=== PATIENT | female | born 1955 | race Caucasian/White ===

== ENCOUNTER 2017-05-01 13:09 | Inpatient (IN) | payer OTHER ==
[~2017-05-01] VITALS: Ht 160 cm; Wt 153.3 kg
--- NOTE | ~2017-05-01 | EKG ---
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: KKODJOVI : 1955 Requested By: Noel Guzman Order Number: [id number] MD: Randal Ding Measurements Intervals [place] Rate: 97 P: 65 [place]: 184 QRS: 72 QRSD: 112 T: 63 QT: 402 QTc: 511 Interpretive Statements Sinus rhythm Borderline intraventricular conduction delay Nonspecific repol abnormality, diffuse leads Prolonged QT interval Compared to ECG 05/06/2015 09:51:06 ST and T wave abnormality now present Prolonged QT interval now present Sinus tachycardia no longer present Electronically Signed On 05-01-2017 17:19:34 BROOM BUNDLER by Randal Ding [email or web address] <ELECTRONICALLY SIGNED> By: Randal Ding MD, [facility] 05/01/17 1719 1311 1311 Randal Ding MD, [facility] /EPI
--- NOTE | ~2017-05-01 | 2DMMODE ---
[facility] [place] [address] 2 D/M-MODE ECHOCARDIOGRAM Name: ELAINE RAMIREZ Room #: 363-P ADM IN M.R.#: [id number] Admission: 05/01/17 Attend Phys: Khang Quevedo Discharge: Date of : 59 Date of Service: 05/01/17 1538 Report #: [id number] THIS REPORT FOR: //name// APPROVED REPORT Study performed: 05/01/2017 14:57:46 EXAM: Comprehensive 2D, Doppler, and color-flow Echocardiogram Patient Location: ER Room #: 1 Status: routine BSA: 2.30 HR: 80 bpm BP: 116/64 mmHg Rhythm: NSR Other Information Study Quality: Poor/limited measurements. Technically limited study due to no mobility and morbid obesity. Indications Syncope. Hx: HTN, DM, COPD. 2D Dimensions LVEF(%): 61.58 (>50%) IVSd: 11.95 (7-11mm) LVDd: 50.58 mm PWd: 13.47 (7-11mm) Ascending Ao: 35.60 (22-36mm) LVDs: 33.77 (25-40mm) Aortic Root: 34.47 mm Castano's LVEF: 61.58 % Aortic Valve AoV Peak Urbano.: 1.21 m/s AO Peak Gr.: 5.90 mmHg LVOT Max P.79 mmHg LVOT Max V: 1.30 m/s Mitral Valve E/A Ratio: 1.3 MV Decel. Time: 231.33 ms MV E Max Urbano.: 0.70 m/s MV A Urbano.: 0.54 m/s MV PHT: 67.09 ms IVRT: 83.04 ms [facility] [address] [place] [address] 2 D/M-MODE ECHOCARDIOGRAM Name: ELAINE RAMIREZ Room #: 363-[facility] IN ..#: [id number] Admission: 05/01/17 Attend Phys: Khang Quevedo Discharge: Date of : 59 Date of Service: 05/01/17 1538 Report #: [id number] Tricuspid Valve TR Peak Urbano.: 2.28 m/s RAP Estimate: 5.00 mmHg TR Peak Gr.: 20.72 mmHg PA Pressure: 26.00 mmHg Left Ventricle The left ventricle is normal size. Regional wall motion is not well visualized but grossly normal. Mild concentric left ventricular hypertrophy. The overall left ventricular systolic function appears normal. LVEF is within normal limits. This study is not technically sufficient to allow evaluation of the LV diastolic function. Right Ventricle Right ventricle is not well visualized but appears normal in size. Atria The left atrium size is normal. The right atrium size is normal. Aortic Valve Aortic valve is poorly visualized. No aortic regurgitation is noted. There is no aortic valvular stenosis. Mitral Valve The mitral valve is normal in structure. There is no mitral valve regurgitation noted. No evidence of mitral valve stenosis. Tricuspid Valve Tricuspid valve is not well visualized. Regurgitation jet not well visualized. Estimated PAP is 25-30mmHg. Pulmonic Valve Pulmonic valve is poorly visualized. Great Vessels The aortic root is normal in size. The ascending aorta is normal in size. IVC is normal in size and collapses >50% with inspiration. Pericardium There is no pericardial effusion. <Conclusion> Very limited study [facility] [address] [place] [address] 2 D/M-MODE ECHOCARDIOGRAM Name: ELAINE RAMIREZ Room #: 363-P ADM IN M.R.#: [id number] Admission: 05/01/17 Attend Phys: Khang Quevedo Discharge: Date of : 59 Date of Service: 05/01/17 1538 Report #: [id number] The overall left ventricular systolic function appears normal. Regional wall motion is not well visualized but grossly normal. Aortic valve is poorly visualized. No aortic valvular stenosis or insufficiency. The mitral valve is normal in structure. No mitral valve regurgitation noted. Regurgitation jet not well visualized. Estimated pulmonary artery pressure of 25-30mmHg. There is no pericardial effusion. <ELECTRONICALLY SIGNED> By: Randal Ding MD, FAC 05/01/17 1538 153 [id number] Randal Ding MD, [facility] /INF
--- NOTE | ~2017-05-01 | HC ---
[facility] [place] [address] CONSULTATION Name: ELAINE RAMIREZ Room #: 363-P [facility] IN M.R.#: [id number] Admission: 05/01/17 Attend Phys: Sam Taveras MD Discharge: 05/05/17 Date of : 59 Report #: [id number] THIS REPORT FOR: //name// CC: Genaro Taveras DATE OF SERVICE: 05/01/2017 ATTENDING PHYSICIAN: Sam Taveras M.D. REASON FOR CONSULTATION: Electrolyte abnormalities. HISTORY OF PRESENT ILLNESS: A 61-year-old patient 8 years living in extended care facility with morbid obesity, hypoventilation and diastolic heart failure, has been on multiple diuretic treatments including metolazone, furosemide and acetazolamide and unfortunately has developed marked electrolyte abnormalities and volume depletion on that regimen. She presents with sodium of 122, potassium of 2.1 after a presyncopal episode. PAST MEDICAL HISTORY: As above. She has a history of diastolic congestive heart failure, right-sided heart failure with cor pulmonale, chronic swelling, morbid obesity and obesity hypoventilation previous deep vein thrombosis, COPD and diabetes. MEDICATIONS AT THE FACILITY: Listed including albuterol inhaler, furosemide 80 mg daily, MiraLax, acetazolamide 250 mg daily, atorvastatin 20 mg daily, lisinopril 10 mg daily, bupropion 100 mg daily, levothyroxine 0.05 mg daily, Neurontin 200 mg daily, metolazone 2.5 mg daily, oxycodone, potassium, multiple vitamins, insulin. FAMILY HISTORY: Brother, but she does not know much about him. She does not know much about her parents. SOCIAL HISTORY: Smoker says she recently quit, but apparently has not been long enough to really call it quitting. No alcohol. REVIEW OF SYSTEMS: GENERAL: She has been feeling okay. EYES: Her vision is okay. ENT: Hearing okay, swallowing okay. No mouth ulcers. ENDOCRINE: Positive for the diabetes and hypothyroidism. RESPIRATORY: Easily short winded, chronically short winded. CARDIAC: No chest pain, angina, history of heart attack, palpitations or arrhythmias. GASTROINTESTINAL: No nausea, vomiting, diarrhea or bloody stools. GENITOURINARY: No dysuria, hematuria, or renal stones. No urinary tract [facility] [address] [place] [address] CONSULTATION Name: ELAINE RAMIREZ Room #: 363-P [facility] IN M.R.#: [id number] Admission: 05/01/17 Attend Phys: Sam Taveras MD Discharge: 05/05/17 Date of : 59 Report #: [id number]. NEUROLOGIC: No seizure, syncope or stroke. Generalized weakness and she does not walk. LABORATORY DATA: Hemoglobin 13.2, platelets 266. Sodium 122, potassium 2.1, chloride 79, bicarbonate 35, creatinine 1.3, BUN 36. ASSESSMENT AND PLAN: 1. Electrolyte abnormalities. She has electrolyte abnormalities clearly due to her multiple diuretics, decreased free water clearance, increased potassium excretion appropriately. She is being replenished with potassium chloride and sodium chloride and this seems to be appropriate orders. 2. Acute kidney injury. Creatinine up from 0.9 to 1.3, probably should not be on lisinopril as she does not have any difficulty with left ventricular function and she has the right-sided failure. 3. Obesity hypoventilation. 4. Chronic obstructive pulmonary disease. 5. History of deep venous thrombosis. DICTATION ENDS HERE <ELECTRONICALLY SIGNED> By: Steve Carlos MD 05/08/17 1120 1805 0042 Steve Carlos MD /nt
--- NOTE | ~2017-05-01 | H ---
[facility] [place] [address] HISTORY AND PHYSICAL Name: ELAINE RAMIREZ Room #: 363-P ADM IN M.R.#: [id number] Admission: 05/01/17 Attend Phys: Sam Tvaeras MD Discharge: Date of : 59 Report #: [id number] THIS REPORT FOR: //name// CC: Genaro Taveras DATE OF SERVICE: 05/01/2017 CHIEF COMPLAINT: Syncope. HISTORY OF PRESENT ILLNESS: The patient is a 61-year-old female with history of COPD on home oxygen at 3 liters per minute, history of hypertension, diabetes, chronic pain, DVT/PE, hypothyroidism who was brought into the Emergency Room from [facility] secondary to a syncopal episode. The patient had a sudden collapse at [facility]. Staff were unable to feel the pulse and started her on CPR. On arrival to the Emergency Room, the patient was awake and alert. Her initial blood pressure was 116/64. Workup did show severe hypokalemia with potassium of 2.1. Sodium was low at 122. It appears the patient has been on multiple diuretics Lasix, acetazolamide and metolazone at the assisted. The patient denies any dizziness, no chest pain, no shortness of breath. She denies any nausea, vomiting, abdominal pain. She has had some poor p.o. intake over the last few days. PAST MEDICAL HISTORY: Significant for oxygen dependent COPD. Apparently, she was steroid dependent in the past, but steroid has not been listed in the list of medication. She has history of morbid obesity, peripheral vascular disease, chronic leg edema, type 2 diabetes, osteoarthritis, hyperlipidemia, hypothyroidism, DVT and PE in the past. Chronic kidney disease, stage 3. SOCIAL HISTORY: Smokes cigarettes. No alcohol abuse or illicit drug abuse. She is a [facility] patient. ALLERGIES: No known drug allergy. FAMILY HISTORY: Unable to obtain. REVIEW OF SYSTEMS: CONSTITUTIONAL: The patient denies any recent weight loss or weight gain. No fever or chills. EYES: No change in vision. THROAT: Denies any sore throat. CARDIOVASCULAR: Denies any chest pain, dizziness, palpitations. RESPIRATORY: No cough or expectoration. GASTROINTESTINAL: No nausea, vomiting, or diarrhea. GENITOURINARY: No dysuria or hematuria. NEUROLOGIC: Denies any focal numbness or weakness of the extremity. [facility] [address] [place] [address] HISTORY AND PHYSICAL Name: ELAINE RAMIREZ Room #: 363-P [facility] IN .R.#: [id number] Admission: 05/01/17 Attend Phys: Sam Taveras MD Discharge: Date of : 59 Report #: [id number] The 12-point review of system is negative other than the positive and negative dictated in the history of present illness and the review of system. PHYSICAL EXAMINATION: VITAL SIGNS: Blood pressure is 116/64, heart rate is 89 per minute, afebrile. She is saturating 95% on 4 liters of oxygen. GENERAL: She is awake and alert. Able to follow simple commands. She is oriented to person and place. EYES: Pupils equal, reactive to light. Throat appears normal. NECK: Supple, no JVD, no bruit, no lymphadenopathy. CARDIOVASCULAR SYSTEM: S1, S2, negative S3, no murmur. CHEST: Bilateral air entry present. Clear on auscultation. ABDOMEN: Soft, bowel sounds present, no mass, no organomegaly, no tenderness. PERIPHERY: No pedal edema. No calf tenderness. Dorsalis pedis 1+. NEUROLOGICAL: The patient is able to move all 4 extremities. LABORATORY DATA: Reviewed. White count is 15.7, hemoglobin 13.2, white count was 17.6 in 05/2015. Platelet is 266. Her chemistry showed a BUN of 36, creatinine of 1.3, potassium was low at 2.1, sodium is 122, chloride is 79, bicarbonate is 35. Blood glucose is elevated at 226. CT of the brain showed no acute intracranial abnormality. Chest x-ray showed no acute cardiopulmonary process. EKG showed sinus rhythm, borderline intraventricular conduction block, prolonged QT interval, early repolarization now present, prolonged QT interval now present. Echocardiogram done in 2014 showed normal ejection fraction around 55%-60%, suboptimal study. ASSESSMENT AND PLAN: 1. Syncopal episode, most likely secondary to orthostasis and hypokalemia and hyponatremia. The patient will be admitted to telemetry. We will check her orthostatic vital signs. She will be hydrated with IV fluid. 2. Dehydration/hyponatremia. The patient will be started on normal saline. We will recheck her labs in the morning. 3. Hypokalemia., potassium will be replaced. We will recheck her potassium this evening. 4. Syncope. We will get serial troponin to rule out acute coronary process. We will consult Cardiology and also get serial troponin. 5. Chronic obstructive pulmonary disease. The patient will be continued on DuoNeb. It looks like she is oxygen dependent and will be continued on 3 liters per minute. We will also go ahead and get an ABG. I will start her on IV Solu-Medrol until we clarify home medication list. 6. Deep venous thrombosis prophylaxis. She will be on Lovenox for deep venous thrombosis prophylaxis. [address] [address] HISTORY AND PHYSICAL Name: ELAINE RAMIREZ Room #: 363-P ADM IN .R.#: [id number] Admission: 05/01/17 Attend Phys: Sam Taveras MD Discharge: Date of : 59 Report #: [id number] 7. History of deep venous thrombosis and pulmonary embolism in the past. We will obtain a D-dimer level and consider VQ scan or CT of the chest. <ELECTRONICALLY SIGNED> By: Sam Taveras MD 05/03/17 1203 1455 1524 Sam Taveras MD /nt
[~2017-05-01 13:09] MED LIST: ACETAZOLAMIDE250 M1 PO; ADVAIR HFA 1112 UNIT INH; ALBUTEROL2.5 MG/0.1; ALBUTEROL2.5 MG/31 INH; ALDACTONE25 MG PO; AMITRIPTYLINE H25 M2 PO; BACTRIM DS TAB1 EACH PO; BACTROBAN NASAL1 GM NASAL; BUPROPION XL300 MG PO; CLARITIN10 MG PO; COUMADIN 10MG T10 M1 PO; COUMADIN 2.5MG2.5 M1 PO; DAILY MULTIPLE1 EACH PO; DEMADEX20 MG PO; DOXYCYCLINE 10100 M1 PO; DOXYCYCLINE 10100 MG PO; DUONEB 2.5-0.5 M3 ML INH; GENTAMICIN 0.1%15 G2 TOP; GLUCOPHAGE XR500 MG; GLUCOPHAGE500 MG PO; HYDRALAZINE 2525 MG PO; IPRATROPIUM 0.02% PO; LASIX 20 MG TAB20 MG PO; LASIX 40 MG TAB40 M1 PO; LASIX 40 MG TAB40 M2 PO; LEVAQUIN 250 M250 MG PO; LEVOTHYROXIN0.025 MG PO; LEVOTHYROXINE0.05 MG PO; LIDODERM 5%1 PATC1 TRANSDERM; LIPITOR 20 MG T20 M1 PO; LISINOPRIL10 MG PO; LISINOPRIL40 MG PO; MIRALAX17 GM PO; MULTIVITAMINS1 EAC7 PO; NEPHROCAPS SOFT1 CAP PO; NEURONTIN 300300 M1 PO; NORCO 5-325 TA1 EACH PO; NORVASC 2.5 MG2.5 M1 PO; OXYCODONE HCL10 M1 PO; OXYCONTIN CR 1010 M1 PO; OXYCONTIN20 M1 PO; PAIN & FEVER325 MG PO; PIPERACIL-TAZO4.5 G1 IV; POTASSIUM20 PO; PREDNISONE 10 M10 M1 PO; PREDNISONE 20 M20 MG; PREDNISONE 20 M20 MG PO; PREDNISONE50 MG PO; PRINIVIL20 M1 PO; PRO-STAT AWC L887 ML PO; PROVENTIL HFA6.7 G1 INH; ROBITUSSIN100 MG/53 PO; ROBITUSSIN15 MG/5 M1 PO; ROBITUSSIN15 MG/5 ML PO; SENNA PO; SENOKOT-S TABL1 EACH PO; SENOKOT-S1 TA1 PO; SIMVASTATIN20 MG PO; TYLENOL325 MG PO; VANCOMYCIN HCL1 GM IV; VENTOLIN HFA INH8 GM INH; VITAMIN C500 M1 PO; WELLBUTRIN 100100 M1 PO; WELLBUTRIN 100100 MG PO; WELLBUTRIN XL300 M2; XARELTO20 MG PO; ZOCOR40 MG PO
[2017-05-01 13:10] VITALS: BP 116/64
[2017-05-01 13:26] LABS: HEMOGLOBIN 13.2 gm/dL (12.0-15.0); MCH 31.7 pg (26.0-34.0); MCHC 34.6 g/dL (28.0-37.0); MCV 91.4 fL (80.0-100.0); RBC 4.16 mil/uL (4.20-5.00); RDW 14.2 % (10.5-14.5); WBC 15.7 thou/uL (4.0-11.0)
[2017-05-01 13:37] LABS: ANION GAP 8 mmol/L (7-16); BUN 36 mg/dL (7-18); CALCIUM 9.5 mg/dL (8.5-10.1); CHLORIDE 79 mmol/L (98-107); CO2 35 mmol/L (21-32); CREATININE 1.3 mg/dL (0.6-1.0); GLUCOSE 226 mg/dL (74-106); SODIUM 122 mmol/L (136-145)
[2017-05-01 13:40] LABS: POTASSIUM 2.1 mmol/L (3.5-5.1)
[2017-05-01 13:46] LABS: TROPONIN-I < 0.04 ng/mL (<0.06)
[2017-05-01] MEDS ORDERED: GABAPENTIN 100100 MG PO (14:57)
[2017-05-01] MEDS ORDERED: METOLAZONE 2.52.5 M1 PO (14:59)
[2017-05-01] MEDS ORDERED: UNICOMPLEX M TA1 TA1 PO (15:00)
[2017-05-01] MEDS ORDERED: NEURONTIN 300300 M1 PO (15:01)
[2017-05-01] MEDS ORDERED: OXYCONTIN10 M1 PO (15:02)
[2017-05-01] MEDS ORDERED: POTASSIUM20 PO (15:02)
[2017-05-01] MEDS ORDERED: SENNA8.6 MG PO (15:03)
[2017-05-01 15:04] VITALS: BP 116/64
[2017-05-01 15:28] LABS: ALBUMIN 3.3 g/dL (3.4-5.0); DIRECT BILIRUBIN 0.1 mg/dL (<0.1-0.3); TOTAL BILIRUBIN 0.4 mg/dL (<0.1-1.0); TOTAL PROTEIN 7.4 g/dL (6.4-8.2)
[2017-05-01 19:11] LABS: BE(vivo) 10.1 mmol/L (-2 to +3); HCO3 36.1 mmol/L (22.0-26.0); PCO2 54.3 mmHg (35.0-45.0); PO2 81.7 mmHg (80.0-100.0); sO2 96.2 % (92.0-98.0)
[2017-05-01 19:35] VITALS: BP 115/68
[2017-05-02 00:15] VITALS: BP 128/69
[2017-05-02 03:55] VITALS: BP 120/66
[2017-05-02 07:14] LABS: GLYCOHEMOGLOBIN (HGB A1C) 7.2 % (4.8-5.6)
[2017-05-02 12:51] LABS: ABSOLUTE NEUTROPHILS 16.7 thou/uL (1.4-8.2); BASOPHILS 0.1 % (0.0-2.0); HEMATOCRIT 37.9 % (37.0-47.0); HEMOGLOBIN 12.8 gm/dL (12.0-15.0); LYMPHOCYTES 5.7 % (24.0-44.0); MCH 31.1 pg (26.0-34.0); MCHC 33.7 g/dL (28.0-37.0); MCV 92.1 fL (80.0-100.0); MONOCYTES 2.5 % (1.0-8.0); PLATELET COUNT 237 thou/uL (150-400); POLYS 91.7 % (36.0-66.0); RBC 4.11 mil/uL (4.20-5.00); RDW 14.5 % (10.5-14.5); WBC 18.2 thou/uL (4.0-11.0)
[2017-05-02 12:57] VITALS: BP 129/73
[2017-05-02 13:19] LABS: CALCIUM 9.5 mg/dL (8.5-10.1); CREATININE 1.1 mg/dL (0.6-1.0); MAGNESIUM 2.3 mg/dL (1.8-2.4); PHOSPHORUS 2.1 mg/dL (2.5-4.9); POTASSIUM 3.3 mmol/L (3.5-5.1)
[2017-05-02 19:44] VITALS: BP 124/60
[2017-05-03 04:55] VITALS: BP 158/94
[2017-05-03 07:14] LABS: ALBUMIN 2.9 g/dL (3.4-5.0); CALCIUM 9.2 mg/dL (8.5-10.1); CREATININE 1.1 mg/dL (0.6-1.0); PHOSPHORUS 3.3 mg/dL (2.5-4.9); POTASSIUM 3.8 mmol/L (3.5-5.1)
[2017-05-03 08:19] VITALS: BP 146/74
[2017-05-03 16:35] VITALS: BP 145/80
[2017-05-03 20:18] VITALS: BP 137/72
[2017-05-04 04:45] VITALS: BP 142/78
[2017-05-04 09:21] VITALS: BP 138/81
[2017-05-04 17:47] VITALS: BP 142/75
[2017-05-04 19:50] VITALS: BP 148/80
[2017-05-05 02:55] VITALS: BP 143/93
[2017-05-05] MEDS ORDERED: HYDROCODON-ACE1 EAC7 PO (08:07)
[2017-05-05] MEDS ORDERED: OXYCONTIN15 MG PO (08:07)
[2017-05-05 08:12] VITALS: BP 139/83
[2017-08-20] MEDS ORDERED: LASIX 40 MG TAB40 M2 PO (23:50)
[2017-09-15] MEDS ORDERED: LASIX 80 MG TAB80 MG PO (11:51)
[2017-10-06] MEDS ORDERED: CIPRO500 MG PO (09:15)
== END 2017-05-05 13:03 | DRG 682 ==
LOC: ER 13:09 → EROBS 14:22 → 3W 14:22
PROVIDERS: Emergency Medicine; Hospitalist; Internal Medicine
DX: N17.9 Acute kidney failure, unspecified (principal); E43 Unspecified severe protein-calorie malnutrition; E87.1 Hypo-osmolality and hyponatremia; I50.30 Unspecified diastolic (congestive) heart failure; E66.2 Morbid (severe) obesity with alveolar hypoventilation; Z68.43 Body mass index [BMI] 50.0-59.9, adult; I13.0 Hypertensive heart and chronic kidney disease with heart failure and stage 1 through stage 4 chronic kidney disease, or unspecified chronic kidney disease; J44.9 Chronic obstructive pulmonary disease, unspecified; M19.90 Unspecified osteoarthritis, unspecified site; E78.5 Hyperlipidemia, unspecified; G89.29 Other chronic pain; E03.9 Hypothyroidism, unspecified; E86.0 Dehydration; E87.6 Hypokalemia; E11.51 Type 2 diabetes mellitus with diabetic peripheral angiopathy without gangrene; N18.3 Chronic kidney disease, stage 3 (moderate); I27.20 Pulmonary hypertension, unspecified; I87.8 Other specified disorders of veins; T50.2X5A Adverse effect of carbonic-anhydrase inhibitors, benzothiadiazides and other diuretics, initial encounter; Y92.89 Other specified places as the place of occurrence of the external cause; Z86.718 Personal history of other venous thrombosis and embolism; Z86.711 Personal history of pulmonary embolism; Z79.52 Long term (current) use of systemic steroids; Z79.899 Other long term (current) drug therapy; Z87.891 Personal history of nicotine dependence
CPT/HCPCS: 10879

== ENCOUNTER 2017-08-20 16:50 | Inpatient (IN) | payer OTHER ==
[~2017-08-20] VITALS: Ht 160 cm; Wt 164.4 kg
--- NOTE | ~2017-08-20 | EKG ---
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 <ELECTRONICALLY SIGNED> By: David Cross MD 08/21/17 0704 1707 170 David Cross MD /EPI
--- NOTE | ~2017-08-20 | HC ---
[facility] [place] [address] CONSULTATION Name: ELAINE RAMIREZ Room #: 244-P [facility] IN M.R.#: [id number] Admission: 08/20/17 Attend Phys: Sandy Joe Discharge: Date of : 59 Report #: [id number] THIS REPORT FOR: //name// CC: Sandy Nassar REASON FOR CONSULTATION: I was asked to evaluate in the intensive care unit, regarding respiratory failure, pulmonary infiltrates, lower extremity cellulitis and venous stasis wounds. HISTORY OF PRESENT ILLNESS: The patient is a 61[facility] resident who was admitted on 08/20/2017 with acute shortness of breath. She was found to be in respiratory failure requiring 100% oxygen on nonrebreather. She does have underlying COPD and is on 4 liters of oxygen as her baseline. There was report of increased edema. No cough or sputum production. No fever, chills or sweats. She has had pain in both lower extremities, right greater than left. Once admitted, she was on the floor and became more confused and combative, brought back down to the intensive care unit, placed on BiPAP. The patient was unable to give any further details. I discussed the case with nursing staff at the bedside who reported further history. Otherwise, history was gleaned from the chart, which was reviewed in detail. She has a history of DVT and PE. She is anticoagulated on Xarelto. She also carries the diagnosis hypoventilation syndrome. She has been a [facility] resident. ALLERGIES: No known allergies. MEDICATIONS: As noted on her MAR, now including vancomycin and Levaquin. PAST MEDICAL HISTORY: COPD, venous stasis disease with varicosities and venous stasis ulcers, hypertension, diabetes, obesity, osteoarthritis, hyperlipidemia, chronic pain syndrome, DVT, PE, hypothyroidism, peripheral vascular disease, chronic kidney disease, diastolic heart failure. FAMILY HISTORY: Noncontributory. SOCIAL HISTORY: Smoker of cigarettes. No significant alcohol intake. REVIEW OF SYSTEMS: Peripheral IV in place. Wheeler catheter. On BiPAP. No rash or decubiti noted. No diarrhea. No reported chest pain. PHYSICAL EXAMINATION: VITAL SIGNS: Currently, afebrile, hemodynamically stable. GENERAL: She was arousable, but not following commands. Obese. EXTREMITIES: Skin with venous stasis dermatitis changes, right greater than left with shallow venous stasis ulcer anteriorly. Significantly tender right greater than left. Erythema extending up to her proximal anterior pretibial skin. Pulses in her feet were normal. 2+ edema on the right, 1+ on the left. [address] [address] CONSULTATION Name: ELAINE RAMIREZ Room #: 244-P [facility] IN M.R.#: [id number] Admission: 08/20/17 Attend Phys: Sandy Joe Discharge: Date of : 59 Report #: [id number] HEENT: Remarkable for BiPAP, otherwise. NECK: Supple. LUNGS: Crackles heard in the bases bilaterally, no consolidation. HEART: Regular without murmur. ABDOMEN: Obese, soft, nontender, no hepatosplenomegaly or mass appreciated. Large abdominal pannus. LABORATORY STUDIES: Vancomycin trough was 22. ABG on 40% BIPAP showed a pO2 of 60, pCO2 of 83, pH 7.34. Blood cultures negative. Chest x-ray: Congestive heart failure with interstitial infiltrates. Hemoglobin 10.9; platelet count 185,000; white count 7.7; 84% segs, 9% lymphs. Creatinine 0.7. Liver function test normal. MRSA screen positive. Urinalysis unremarkable. CT scan of the chest showed some scarring in the right base. IMPRESSION: A 61[facility], admitted with respiratory failure, congestive heart failure, venous stasis disease and cellulitis of her right leg along with anemia and obstructive sleep apnea, noting hypercarbia. RECOMMENDATIONS: We will continue antibiotic coverage for possible pneumonia contributing to her respiratory failure, incorporating nosocomial coverage. Also cover treatment for right lower extremity cellulitis complicating venous stasis disease. PLAN: We will continue with diuresis, respiratory care and edema control of her lower extremities. Topical anti-inflammatory agents will be prescribed by wound care team. We will see how she does in the next 24 hours. Adjust her vancomycin dosing. Taper her antibiotics accordingly. <ELECTRONICALLY SIGNED> By: Aroldo Alston MD 08/23/17 0959 1618 2142 Aroldo Alston MD /nt
--- NOTE | ~2017-08-20 | EKG ---
[address] [place] [place] [address] ELECTROCARDIOGRAM REPORT Name: ELAINE RAMIREZ Room #: 244- ADM IN M.R.#: [id number] Admission: 08/20/17 Attend Phys: Sandy Joe Discharge: Date of : 59 Report #: [id number] THIS REPORT FOR: //name// [facility] Test Date: 2017-08-22 Test Time: 05:51:57 Pat Name: ELAINE RAMIREZ Department: Room: [facility] Gender: F Associate Scientist: KAMINI : 1955 Requested By: Gema Bronson Order Number: [id number] MD: Randal Ding Measurements Intervals [place] Rate: 100 P: 94 [place]: 160 QRS: 73 QRSD: 96 T: 84 QT: 330 QTc: 426 Interpretive Statements Sinus tachycardia Borderline low voltage, extremity leads Compared to ECG 08/20/2017 17:07:22 no significant change was found Electronically Signed On 08-22-2017 8:12:15 CDT by Randal Ding [email or web address] <ELECTRONICALLY SIGNED> By: Randal Ding MD, [facility] 08/22/17 0812 0551 0551 Randal Ding MD, [facility] /EPI
--- NOTE | ~2017-08-20 | HC ---
[facility] [place] [address] CONSULTATION Name: ELAINE RAMIREZ Room #: 244-P [facility] IN M.R.#: [id number] Admission: 08/20/17 Attend Phys: Sandy Joe Discharge: Date of : 59 Report #: [id number] THIS REPORT FOR: //name// CC: Sandy Nassar DATE OF SERVICE: 08/21/2017 CHIEF COMPLAINT: Bilateral lower extremity ulcerations. HISTORY OF PRESENT ILLNESS: This is a 61-year-old white female patient who was admitted to the hospital and recently transferred to Intensive Care Unit for jbqaz-uq-[id number] hypoxic respiratory failure. The patient is also noted to have cellulitis, stasis dermatitis and ulcerations of her legs, and I have been asked to see her with regard to wound care. PAST MEDICAL HISTORY: Positive for morbid obesity, hypertension, type 2 diabetes mellitus, history of DVT and pulmonary embolus and bilateral lower extremity cellulitis with recently documented respiratory failure. The patient has had a significant weight gain of approximately 14 pounds over the last week or two and is now admitted for further evaluation and treatment. MEDICATIONS: Include Xarelto, Lasix, DuoNebs, MiraLax, Tylenol, acetazolamide, Lipitor, Zestril, Claritin, Wellbutrin, Advair, Synthroid, Neurontin and senna. SOCIAL HISTORY: The patient smokes cigarettes, one-half pack per day. No alcohol use. FAMILY HISTORY: Noncontributory. REVIEW OF SYSTEMS: Not obtainable due to the patient's respiratory distress. She is lying flat in bed in the ICU with BiPAP in place. PHYSICAL EXAMINATION: VITAL SIGNS: At this time include pulse 85, respiratory rate of 13, blood pressure 118/79 and temperature 98.8. GENERAL: This is a chronically ill-appearing female patient, who appears to be in mild discomfort. HEENT: Head normocephalic. Nose and throat are difficult to assess; BiPAP mask is in place. NECK: Supple. LUNGS: Diminished. HEART: Regular rate and rhythm. ABDOMEN: Obese, soft and nontender. EXTREMITIES: Lower extremities demonstrate palpable distal pulses. She has 3+ edema on both lower extremities. Significant venous stasis dermatitis and [facility] [address] [place] [address] CONSULTATION Name: ELAINE RAMIREZ Room #: 244-P [facility] IN M.R.#: [id number] Admission: 08/20/17 Attend Phys: Sandy Joe Discharge: Date of : 59 Report #: [id number] pretibial ulceration on the right side, with surrounding cellulitis. CLINICAL IMPRESSION: 1. Venous-type ulceration to both lower extremities, right greater than left. 2. Cellulitis, right lower extremity. 3. Venous stasis dermatitis. 4. Bzzck-pw-mcbynfy respiratory failure. 5. History of deep venous thrombosis and pulmonary embolus. 6. Morbid obese. 7. Diabetes mellitus. RECOMMENDATIONS: At this point in time, we will recommend topical triamcinolone cream to the affected areas. We will recommend silver foam to the pretibial region with Kerlix and Thaddeus bilaterally. Recommend nutritional support as appropriate to maximize wound healing and maximize glycemic control. Ongoing respiratory care. I will continue to follow her while here in the hospital. I appreciate being asked to see her in consultation. <ELECTRONICALLY SIGNED> By: Shantanu Perdue MD 08/22/17 1514 1833 0029 Shantanu Perdue MD /nt
--- NOTE | ~2017-08-20 | 2DMMODE ---
[facility] [address] [place] [address] 2 D/M-MODE ECHOCARDIOGRAM Name: ELAINE RAMIREZ Room #: 244-P ADM IN M.R.#: [id number] Admission: 08/20/17 Attend Phys: Sandy Amin Discharge: Date of : 59 Date of Service: 08/21/17 1422 Report #: [id number] THIS REPORT FOR: //name// APPROVED REPORT Study performed: 08/21/2017 13:23:11 EXAM: Comprehensive 2D, Doppler, and color-flow Echocardiogram Patient Location: ICU Room #: [facility] Status: routine BSA: 2.46 HR: 98 bpm BP: 173/79 mmHg Other Information Study Quality: Fair Technically limited study due to inability to position patient, body habitus, uncooperative patient. Risk Factors: Cardiac Risk Factors: HTN, DM, Smoking Indications COPD Diabetes Hypertension/HDD Hypoxia, Morbid obesity. 2D Dimensions IVC: 28.00 mm Mitral Valve E/A Ratio: 1.2 MV Decel. Time: 177.44 ms MV E Max Urbano.: 1.19 m/s MV A Urbano.: 0.97 m/s MV PHT: 51.46 ms Pulmonary Valve PV Peak Urbano.: 1.03 m/s PV Peak Gr.: 4.27 mmHg Left Ventricle The left ventricle is normal size. There is normal left ventricular [facility] [address] [place] [address] 2 D/M-MODE ECHOCARDIOGRAM Name: ELAINE RAMIREZ Room #: 244-P ADM IN M.R.#: [id number] Admission: 08/20/17 Attend Phys: Sandy Amin Discharge: Date of : 59 Date of Service: 08/21/17 1422 Report #: [id number] wall thickness. The left ventricular systolic function is normal. The left ventricular ejection fraction is within the normal range. LVEF is 60%. This study is not technically sufficient to allow evaluation of the LV diastolic function. Right Ventricle The right ventricle is normal size. The right ventricular systolic function is normal. Atria Left atrium is mildly dilated. Right atrium is at the upper limits of normal. Aortic Valve The aortic valve is normal in structure. No aortic regurgitation is present. There is no aortic valvular stenosis. Mitral Valve The mitral valve is normal in structure. Mild mitral regurgitation. No evidence of mitral valve stenosis. Tricuspid Valve The tricuspid valve is normal in structure. There is no tricuspid valve regurgitation noted. Pulmonic Valve The pulmonary valve is normal in structure. Trace pulmonic regurgitation. Great Vessels The aortic root is normal in size. IVC is dilated and collapses >50% with inspiration. Pericardium There is no pericardial effusion. <Conclusion> Technically difficult study The left ventricle is normal size. There is normal left ventricular wall thickness. The left ventricular systolic function is normal. The right ventricle is normal size. Left atrium is mildly dilated. The aortic valve is normal in structure. [facility] [address] [place] [address] 2 D/M-MODE ECHOCARDIOGRAM Name: ELAINE RAMIREZ Room #: 244-P [facility] IN M.R.#: [id number] Admission: 08/20/17 Attend Phys: Sandy Amin Discharge: Date of : 59 Date of Service: 08/21/17 142 Report #: [id number] Mild mitral regurgitation. There is no pericardial effusion. <ELECTRONICALLY SIGNED> By: Tristan Michel MD 08/21/171421 21 21 Tristan Michel MD /INF
[~2017-08-20 16:50] MED LIST changes: +GABAPENTIN 100100 MG PO; +HYDROCODON-ACE1 EAC7 PO; +METOLAZONE 2.52.5 M1 PO; +OXYCONTIN10 M1 PO; +OXYCONTIN15 MG PO; +SENNA8.6 MG PO; +UNICOMPLEX M TA1 TA1 PO
[2017-08-20 16:53] VITALS: BP 112/55
[2017-08-20 17:00] LABS: BE(vivo) 14.8 mmol/L (-2 to +3); HCO3 42.5 mmol/L (22.0-26.0); pH 7.411 (7.360-7.450); sO2 71.5 % (92.0-98.0)
[2017-08-20 17:01] LABS: PCO2 68.4 mmHg (35.0-45.0); PO2 38.8 mmHg (80.0-100.0)
[2017-08-20 17:47] LABS: ABSOLUTE NEUTROPHILS 10.5 thou/uL (1.4-8.2); BASOPHILS 0.3 % (0.0-2.0); EOSINOPHILS 1.5 % (0.0-3.0); HEMOGLOBIN 11.9 gm/dL (12.0-15.0); LYMPHOCYTES 11.1 % (24.0-44.0); MCH 31.1 pg (26.0-34.0); MCHC 32.2 g/dL (28.0-37.0); MCV 96.7 fL (80.0-100.0); MONOCYTES 5.8 % (1.0-8.0); PLATELET COUNT 170 thou/uL (150-400); POLYS 81.3 % (36.0-66.0); RBC 3.83 mil/uL (4.20-5.00); RDW 14.6 % (10.5-14.5); WBC 12.9 thou/uL (4.0-11.0)
[2017-08-20 17:54] LABS: ANION GAP < 0 mmol/L (7-16); BUN 19 mg/dL (7-18); CHLORIDE 95 mmol/L (98-107); CO2 44 mmol/L (21-32); CREATININE 0.7 mg/dL (0.6-1.0); GLUCOSE 105 mg/dL (74-106); SODIUM 134 mmol/L (136-145)
[2017-08-20 18:02] VITALS: BP 127/67
[2017-08-20 18:02] LABS: ALBUMIN 3.1 g/dL (3.4-5.0); SGOT 22 U/L (15-37); SGPT 21 U/L (30-65); TOTAL BILIRUBIN 0.2 mg/dL (<0.1-1.0); TOTAL PROTEIN 6.3 g/dL (6.4-8.2); TROPONIN-I < 0.04 ng/mL (<0.06)
[2017-08-20 18:16] LABS: PROTIME 10.5 Seconds (9.3-11.4)
[2017-08-20 19:03] LABS: URINE BILIRUBIN NEGATIVE (Negative); URINE BLOOD NEGATIVE (Negative); URINE CLARITY CLEAR; URINE COLOR YELLOW; URINE GLUCOSE-RANDOM* NEGATIVE (Negative); URINE KETONES NEGATIVE (Negative); URINE LEUKOCYTES-REFLEX NEGATIVE (Negative); URINE NITRITE-REFLEX NEGATIVE (Negative); URINE PROTEIN (DIPSTICK) NEGATIVE (Negative); URINE UROBILINOGEN 0.2 E.U./dl (0.2-1.0)
[2017-08-20 21:35] VITALS: BP 152/82
[2017-08-20] MEDS ORDERED: XARELTO20 MG PO (23:36)
[2017-08-20] MEDS ORDERED: LASIX 80 MG TAB80 MG PO (23:50)
[2017-08-21] VITALS (9 sets, daily range): BP systolic 88–174; BP diastolic 56–89
[2017-08-21 02:04] LABS: BE(vivo) 14.5 mmol/L (-2 to +3); HCO3 42.9 mmol/L (22.0-26.0); PO2 129.3 mmHg (80.0-100.0); pH 7.378 (7.360-7.450); sO2 98.4 % (92.0-98.0)
[2017-08-21 02:05] LABS: PCO2 74.5 mmHg (35.0-45.0)
[2017-08-21 17:15] LABS: BE(vivo) 18.2 mmol/L (-2 to +3); pH 7.436 (7.360-7.450); sO2 83.5 % (92.0-98.0)
[2017-08-21 17:17] LABS: PCO2 69.9 mmHg (35.0-45.0); PO2 48.3 mmHg (80.0-100.0)
[2017-08-21 22:50] LABS: ABSOLUTE NEUTROPHILS 5.8 thou/uL (1.4-8.2); BASOPHILS 0.1 % (0.0-2.0); EOSINOPHILS 0.1 % (0.0-3.0); HEMATOCRIT 33.6 % (37.0-47.0); HEMOGLOBIN 10.8 gm/dL (12.0-15.0); LYMPHOCYTES 11.7 % (24.0-44.0); MCHC 32.3 g/dL (28.0-37.0); MCV 95.9 fL (80.0-100.0); MONOCYTES 4.5 % (1.0-8.0); PLATELET COUNT 187 thou/uL (150-400); POLYS 83.6 % (36.0-66.0); RDW 14.5 % (10.5-14.5); WBC 6.9 thou/uL (4.0-11.0)
[2017-08-21 23:03] LABS: CALCIUM 8.9 mg/dL (8.5-10.1); CREATININE 0.5 mg/dL (0.6-1.0); POTASSIUM 5.1 mmol/L (3.5-5.1)
[2017-08-22] VITALS (20 sets, daily range): BP systolic 125–157; BP diastolic 56–92
[2017-08-22 05:31] LABS: BE(vivo) 16.6 mmol/L (-2 to +3); HCO3 44.5 mmol/L (22.0-26.0); PO2 75.6 mmHg (80.0-100.0); pH 7.409 (7.360-7.450); sO2 94.6 % (92.0-98.0)
[2017-08-22 05:52] LABS: ALBUMIN 2.5 g/dL (3.4-5.0); ANION GAP < 0 mmol/L (7-16); BUN 18 mg/dL (7-18); CHLORIDE 97 mmol/L (98-107); CO2 44 mmol/L (21-32); CREATININE 0.7 mg/dL (0.6-1.0); GLUCOSE 154 mg/dL (74-106); POTASSIUM 4.8 mmol/L (3.5-5.1); SGOT 15 U/L (15-37); SGPT 18 U/L (30-65); SODIUM 139 mmol/L (136-145); TOTAL BILIRUBIN 0.2 mg/dL (<0.1-1.0); TOTAL PROTEIN 6.1 g/dL (6.4-8.2)
[2017-08-22 05:54] LABS: ABSOLUTE NEUTROPHILS 6.5 thou/uL (1.4-8.2); HEMATOCRIT 33.7 % (37.0-47.0); HEMOGLOBIN 10.9 gm/dL (12.0-15.0); LYMPHOCYTES 9.9 % (24.0-44.0); MCH 30.8 pg (26.0-34.0); MCHC 32.3 g/dL (28.0-37.0); MCV 95.3 fL (80.0-100.0); MONOCYTES 5.9 % (1.0-8.0); PLATELET COUNT 185 thou/uL (150-400); POLYS 84.2 % (36.0-66.0); RBC 3.53 mil/uL (4.20-5.00); WBC 7.7 thou/uL (4.0-11.0)
[2017-08-22 07:36] LABS: HCO3 44.4 mmol/L (22.0-26.0); PCO2 83.5 mmHg (35.0-45.0); PO2 60.5 mmHg (80.0-100.0); pH 7.344 (7.360-7.450); sO2 88.3 % (92.0-98.0)
[2017-08-23] VITALS (17 sets, daily range): BP systolic 100–178; BP diastolic 36–91
[2017-08-23 03:31] LABS: HEMATOCRIT 37.2 % (37.0-47.0); HEMOGLOBIN 11.9 gm/dL (12.0-15.0); MCH 30.5 pg (26.0-34.0); MCV 95.3 fL (80.0-100.0); RBC 3.9 mil/uL (4.20-5.00); RDW 14.3 % (10.5-14.5); WBC 7.5 thou/uL (4.0-11.0)
[2017-08-23 03:43] LABS: BUN 27 mg/dL (7-18); CALCIUM 9.1 mg/dL (8.5-10.1); CHLORIDE 96 mmol/L (98-107); CREATININE 0.9 mg/dL (0.6-1.0); GLUCOSE 166 mg/dL (74-106); MAGNESIUM 2.5 mg/dL (1.8-2.4); POTASSIUM 4.1 mmol/L (3.5-5.1); SODIUM 141 mmol/L (136-145)
[2017-08-23 03:50] LABS: CO2 > 45 mmol/L (21-32)
[2017-08-23 05:22] LABS: HCO3 48.3 mmol/L (22.0-26.0); PCO2 75.4 mmHg (35.0-45.0); PO2 62.2 mmHg (80.0-100.0); pH 7.424 (7.360-7.450); sO2 91.1 % (92.0-98.0)
[2017-08-24 03:16] VITALS: BP 148/77
[2017-08-24 06:32] LABS: HEMATOCRIT 36.3 % (37.0-47.0); HEMOGLOBIN 11.8 gm/dL (12.0-15.0); MCH 30.7 pg (26.0-34.0); MCHC 32.4 g/dL (28.0-37.0); MCV 94.8 fL (80.0-100.0); RBC 3.83 mil/uL (4.20-5.00); RDW 14.5 % (10.5-14.5); WBC 7.8 thou/uL (4.0-11.0)
[2017-08-24 06:47] LABS: ALBUMIN 2.9 g/dL (3.4-5.0); CALCIUM 8.9 mg/dL (8.5-10.1); CREATININE 0.8 mg/dL (0.6-1.0); PHOSPHORUS 4.7 mg/dL (2.5-4.9); POTASSIUM 3.7 mmol/L (3.5-5.1)
[2017-08-24 07:27] VITALS: BP 135/74
[2017-08-24 11:42] VITALS: BP 136/77
[2017-08-24] MEDS ORDERED: LEVAQUIN 750 M750 MG PO (12:42)
[2017-08-24] MEDS ORDERED: VANCO1GM IV (12:43)
[2017-08-24] MEDS ORDERED: TRIAMCINOLONE A80 G2 TOP (12:44)
[2017-08-24] MEDS ORDERED: NOVOLOG100 UNIT/1 SUBQ (12:48)
== END 2017-08-24 17:02 | DRG 871 ==
LOC: ER 16:50 → EROBS 19:56 → 3W 19:56 → ICU 08-21 12:56 → 3W 08-23 19:33
PROVIDERS: Hospitalist; Internal Medicine; Internal Medicine Pulmonary Disease; Physician Assistant
PROC: 5A09357 Assistance with Respiratory Ventilation, Less than 24 Consecutive Hours, Continuous Positive Airway Pressure (ICD-10-PCS; principal; 2017-08-21)
PROC: 5A09357 Assistance with Respiratory Ventilation, Less than 24 Consecutive Hours, Continuous Positive Airway Pressure (ICD-10-PCS; 2017-08-22)
PROC: 05HY33Z Insertion of Infusion Device into Upper Vein, Percutaneous Approach (ICD-10-PCS; 2017-08-23)
PROC: 5A09357 Assistance with Respiratory Ventilation, Less than 24 Consecutive Hours, Continuous Positive Airway Pressure (ICD-10-PCS; 2017-08-24)
DX: A41.9 Sepsis, unspecified organism (principal); J96.22 Acute and chronic respiratory failure with hypercapnia; J96.21 Acute and chronic respiratory failure with hypoxia; L03.116 Cellulitis of left lower limb; L03.115 Cellulitis of right lower limb; J44.1 Chronic obstructive pulmonary disease with (acute) exacerbation; L97.929 Non-pressure chronic ulcer of unspecified part of left lower leg with unspecified severity; L97.919 Non-pressure chronic ulcer of unspecified part of right lower leg with unspecified severity; I50.30 Unspecified diastolic (congestive) heart failure; Z68.44 Body mass index [BMI] 60.0-69.9, adult; I13.0 Hypertensive heart and chronic kidney disease with heart failure and stage 1 through stage 4 chronic kidney disease, or unspecified chronic kidney disease; M19.90 Unspecified osteoarthritis, unspecified site; E78.5 Hyperlipidemia, unspecified; E03.9 Hypothyroidism, unspecified; F17.210 Nicotine dependence, cigarettes, uncomplicated; I87.2 Venous insufficiency (chronic) (peripheral); E66.01 Morbid (severe) obesity due to excess calories; G89.4 Chronic pain syndrome; E11.22 Type 2 diabetes mellitus with diabetic chronic kidney disease; E11.51 Type 2 diabetes mellitus with diabetic peripheral angiopathy without gangrene; D64.9 Anemia, unspecified; G47.33 Obstructive sleep apnea (adult) (pediatric); I27.81 Cor pulmonale (chronic); D72.829 Elevated white blood cell count, unspecified; N18.3 Chronic kidney disease, stage 3 (moderate); Z79.899 Other long term (current) drug therapy; Z86.718 Personal history of other venous thrombosis and embolism; Z86.711 Personal history of pulmonary embolism; Z91.19 Patient's noncompliance with other medical treatment and regimen; Z71.3 Dietary counseling and surveillance
CPT/HCPCS: 10203; 10879; 27000

== ENCOUNTER 2017-09-15 11:43 | Emergency (ER) | payer OTHER ==
[~2017-09-15] VITALS: Ht 160 cm; Wt 159.2 kg
--- NOTE | ~2017-09-15 | EKG ---
[address] [employer] [place] [address] ELECTROCARDIOGRAM REPORT Name: ELAINE RAMIREZ 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[facility] 1955 Requested By: Konrad Campbell Order Number: [id number] MD: Randal Ding Measurements Intervals [place] Rate: 95 P: 67 TX: 161 QRS: 94 QRSD: 102 T: 73 QT: 353 QTc: 444 Interpretive Statements Sinus rhythm Borderline right axis deviation Low voltage, precordial leads Compared to ECG 08/22/2017 05:51:57 Sinus tachycardia no longer present Electronically Signed On 09-15-2017 16:32:40 CDT by aRndal Ding [email or web address] <ELECTRONICALLY SIGNED> By: Randal Ding MD, [facility] 09/15/17 1632 121 121 Randal Ding MD, [facility] /EPI
[~2017-09-15 11:43] MED LIST changes: +LASIX 80 MG TAB80 MG PO; +LEVAQUIN 750 M750 MG PO; +NOVOLOG100 UNIT/1 SUBQ; +TRIAMCINOLONE A80 G2 TOP; +VANCO1GM IV
[2017-09-15] MEDS ORDERED: ELIQUIS5 MG PO (11:47)
[2017-09-15] MEDS ORDERED: BREO ELLIPTA 11 EACH INH (11:48)
[2017-09-15] MEDS ORDERED: FLONASE 0.05%50 MCG NASAL (11:50)
[2017-09-15] MEDS ORDERED: FUROSEMIDE 40 M40 M1 PO (11:51)
[2017-09-15] MEDS ORDERED: ATIVAN0.5 MG PO (11:52)
[2017-09-15] MEDS ORDERED: OXYCONTIN15 MG PO (11:53)
[2017-09-15] MEDS ORDERED: POTASSIUM20 PO (11:54)
[2017-09-15 12:11] LABS: BE(vivo) 9.3 mmol/L (-2 to +3); HCO3 36.7 mmol/L (22.0-26.0); PCO2 64.9 mmHg (35.0-45.0); PO2 67.5 mmHg (80.0-100.0); sO2 92.3 % (92.0-98.0)
[2017-09-15 13:15] LABS: ABSOLUTE NEUTROPHILS 6.6 thou/uL (1.4-8.2); BASOPHILS 0.3 % (0.0-2.0); EOSINOPHILS 3.2 % (0.0-3.0); HEMATOCRIT 35.9 % (37.0-47.0); HEMOGLOBIN 11.7 gm/dL (12.0-15.0); LYMPHOCYTES 14.7 % (24.0-44.0); MCH 30.4 pg (26.0-34.0); MCHC 32.5 g/dL (28.0-37.0); MCV 93.7 fL (80.0-100.0); PLATELET COUNT 197 thou/uL (150-400); POLYS 73.8 % (36.0-66.0); RBC 3.84 mil/uL (4.20-5.00); RDW 15.1 % (10.5-14.5)
[2017-09-15 13:21] LABS: ANION GAP 0 mmol/L (7-16); BUN 14 mg/dL (7-18); CALCIUM 8.9 mg/dL (8.5-10.1); CHLORIDE 99 mmol/L (98-107); CO2 37 mmol/L (21-32); CREATININE 0.8 mg/dL (0.6-1.0); GLUCOSE 110 mg/dL (74-106); POTASSIUM 3.8 mmol/L (3.5-5.1); SODIUM 136 mmol/L (136-145)
[2017-09-15 13:29] LABS: SGOT 16 U/L (15-37); SGPT 20 U/L (30-65); TOTAL BILIRUBIN 0.2 mg/dL (<0.1-1.0); TOTAL PROTEIN 6.9 g/dL (6.4-8.2); TROPONIN-I < 0.04 ng/mL (<0.06)
== END 2017-09-15 14:59 ==
LOC: ER 11:43
PROVIDERS: Physician Assistant
DX: R60.0 Localized edema (principal); J44.9 Chronic obstructive pulmonary disease, unspecified; M19.90 Unspecified osteoarthritis, unspecified site; E78.5 Hyperlipidemia, unspecified; G89.29 Other chronic pain; E03.9 Hypothyroidism, unspecified; I12.9 Hypertensive chronic kidney disease with stage 1 through stage 4 chronic kidney disease, or unspecified chronic kidney disease; E11.22 Type 2 diabetes mellitus with diabetic chronic kidney disease; N18.3 Chronic kidney disease, stage 3 (moderate); F17.210 Nicotine dependence, cigarettes, uncomplicated

== ENCOUNTER 2017-10-09 01:28 | Inpatient (IN) | payer OTHER ==
[2017-10-09] VITALS (89 sets, daily range): BP systolic 78–143; BP diastolic 45–112
[~2017-10-09] VITALS: Ht 160 cm; Wt 155.5 kg
--- NOTE | ~2017-10-09 | HC ---
[facility] [address] [address] [place] [address] CONSULTATION Name: ELAINE RAMIREZ Room #: 243-P [facility] IN M.R.#: [id number] Admission: 10/09/17 Attend Phys: Jamil Anguiano MD Discharge: Date of : 59 Report #: [id number] THIS REPORT FOR: //name// CC: Jamil Nassar DATE OF SERVICE: 10/09/2017 CHIEF COMPLAINT: Right pretibial ulceration. HISTORY OF PRESENT ILLNESS: This is a 61-year-old female patient who is seen in her room with the Wound Care Team. The patient is in intensive care. She has respiratory failure requiring mechanical ventilation with healthcare-associated pneumonia. She is noted to have ulceration involving her right leg. I have been asked to see her with regard to wound care. The patient has a history of COPD and diastolic heart failure, known coronary artery disease status post myocardial infarction, hypertension, diabetes and chronic kidney disease who lives in a nursing care facility. She developed hypercapnic respiratory failure, required mechanical ventilation. Her level of consciousness has diminished and is not able to provide any information about herself. PAST MEDICAL HISTORY: Positive for history of chronic pain syndrome, cellulitis, COPD, respiratory failure, tobacco abuse, obesity, history of DVT, pulmonary embolus. SOCIAL HISTORY: The patient smokes cigarettes daily. FAMILY HISTORY: Unknown. MEDICATIONS: Include DuoNeb, Claritin, acetazolamide, Tylenol, MiraLax, Lipitor, Zestril, Neurontin, senna, Xarelto, Wellbutrin, Lasix, Eliquis, Flonase, Ativan, OxyContin, Synthroid, Advair, K-Dur. REVIEW OF SYSTEMS: Unobtainable due to the patient's level of consciousness. PHYSICAL EXAMINATION: VITAL SIGNS: At this time include pulse 96, respiratory rate of 16, blood pressure 117/45, temperature 98.4. GENERAL: This is a chronically ill-appearing female patient who is currently requiring mechanical ventilation and is somnolent. HEENT: Head normocephalic. Nose is clear. Throat demonstrates endotracheal tube in place. NECK: Supple. LUNGS: Diminished with equal breath sounds. HEART: Regular rhythm. ABDOMEN: Soft. Bowel sounds are present. [facility] [address] [place] [address] CONSULTATION Name: ELAINE RAMIREZ Room #: [address] [place] [address] IN M.R.#: [id number] Admission: 10/09/17 Attend Phys: Jamil Anguiano MD Discharge: Date of : 59 Report #: [id number] EXTREMITIES: Examination of the lower extremities demonstrates diminished yet palpable distal pulses. She has an ulceration on her right pretibial region with some surrounding erythema and scaliness. She has scaliness bilaterally with some crusting. CLINICAL IMPRESSION: 1. Ulceration, right pretibial region, venous versus traumatic in origin. 2. Venous dermatitis. 3. Respiratory failure with healthcare-associated pneumonia. 4. Morbid obesity. 5. Known coronary artery disease. 6. Chronic pain syndrome. 7. Chronic obstructive pulmonary disease with hypercapnic respiratory failure. RECOMMENDATIONS: At this point in time, we will recommend AmLactin cream to both lower extremities. We will recommend topical Silvadene with Xeroform gauze, Kerlix, Thaddeus wraps to both lower extremities. Prevalon boot. She will need turning and repositioning. I do appreciate being asked to see her in consultation. <ELECTRONICALLY SIGNED> By: Shantanu Perdue MD 10/10/17 1211 1824 1919 Shantanu Perdue MD /nt
--- NOTE | ~2017-10-09 | EKG ---
[address] [place] [address] ELECTROCARDIOGRAM REPORT Name: ELAINE RAMIREZ Room #: 243-P ADM IN M.R.#: [id number] Admission: 10/09/17 Attend Phys: Jamil Anguiano MD Discharge: Date of : 59 Report #: [id number] THIS REPORT FOR: //name// [facility] ED Test Date: 2017-10-09 Test Time: 03:00:15 Pat Name: ELAINE RAMIREZ Department: Room: Gender: F Phd Intern: beulah : 1955 Requested By: Aroldo Marie Order Number: [id number] MD: Randal Ding Measurements Intervals [place] Rate: 94 P: 70 MI: 165 QRS: 94 QRSD: 100 T: 52 QT: 353 QTc: 442 Interpretive Statements Sinus rhythm Borderline right axis deviation Abnormal R-wave progression, late transition Borderline T abnormalities, anterior leads Compared to ECG 09/15/2017 12:11:51 No significant change was found Electronically Signed On 10-09-2017 7:53:39 CDT by Randal Ding [email or web address] <ELECTRONICALLY SIGNED> By: Randal Ding MD, [facility] 10/09/17 0753 0300 0300 Randal Ding MD, [facility] /EPI
--- NOTE | ~2017-10-09 | HC ---
[facility] [place] [address] CONSULTATION Name: ELAINE RAMIREZ Room #: [facility] IN M.R.#: [id number] Admission: 10/09/17 Attend Phys: Jamil Anguiano MD Discharge: Date of : 59 Report #: [id number] THIS REPORT FOR: //name// CC: Jamil Nassar DATE OF SERVICE: 10/09/2017 ATTENDING PHYSICIAN: Dr. Burton. REASON FOR CONSULTATION: Possible pneumonia. HISTORY OF PRESENT ILLNESS: A 61-year-old white woman, found at the fdc facility to have significant O2 desaturation, brought to the Emergency Room. She is admitted, requires orotracheal intubation and mechanical ventilation, currently in the ICU. She is on treatment with triple antibiotic combination for possible healthcare-associated pneumonia. The patient is sedated. All information gathered from review of records. PAST MEDICAL HISTORY: COPD. Varicose vein lower extremities as well as ulceration, right leg. Hypertension. Diabetes mellitus. Obesity. Dyslipidemia. Hypothyroidism. Diastolic congestive heart failure. Continued cigarette smoking. DRUG ALLERGIES: None listed. MEDICATIONS: The patient is currently on treatment with vancomycin 1 g IV every 8 hours, Zosyn 3.375 grams IV every 8 hours, Levaquin 750 mg IV daily, also receiving fluid care with chlorhexidine oral care, methylprednisolone 62.5 mg IV twice daily, guaifenesin, propofol sedation, Atrovent/albuterol inhalation treatments, albuterol inhalation treatments, p.r.n. glucose, glucagon, polyethylene glycol, fentanyl p.r.n., acetaminophen p.r.n., ondansetron p.r.n. SOCIAL HISTORY: Unable to obtain. See H and P, old records. FAMILY HISTORY: Unable to obtain, see H and P, old records. REVIEW OF SYSTEMS: Unable to obtain, see ER records. PHYSICAL EXAMINATION: GENERAL: Morbidly obese woman. VITAL SIGNS: Temperature 98.4, pulse 99, respirations 17, BP 123/45, weight 351 pounds, and height 5 feet 3 inches. HEENMT: Pupils equal. Mouth, unable to examine because of orotracheal intubation. NECK: Supple, no thyromegaly. [facility] [address] [place] [address] CONSULTATION Name: ELAINE RAMIREZ Room #: 243-P [facility] IN M.R.#: [id number] Admission: 10/09/17 Attend Phys: Jamil Anguiano MD Discharge: Date of : 59 Report #: [id number] LUNGS: Rhonchi, crackles at bases. HEART: S1, S2. No gallop or murmur. ABDOMEN: Obese, soft, no masses or megaly. PELVIC AND RECTAL: Deferred. EXTREMITIES: Superficial ulceration, right leg with evidence of chronic stasis dermatitis, some pretibial edema. NEUROLOGIC: Unable to evaluate. LABORATORY DATA: Sodium 138, potassium 4.2, CO2 of 43, BUN 12, creatinine 0.8, glucose 132. Albumin 2.7 g/dL. NT-proBNP 586. Urine drug screen negative. WBC 8100, hemoglobin 10.9 g/dL, platelets 250,000, white blood cell count differential reveals 71% neutrophils. Arterial blood gases revealed pH 7.19, pCO2 of 85, pO2 of 74, bicarbonate 32, lactate 0.7. These set of gases on FiO2 of 60%, tidal volume 400 mL and 5 of PEEP. MICROBIOLOGY DATA: Blood and sputum cultures pending at the time of this dictation. RADIOLOGY EVALUATION: Chest x-ray revealed cardiomegaly and possible congestive heart failure, right-sided PICC, question improved congestive heart failure, bibasilar pulmonary atelectasis/infiltrate. CT scan of the head revealed no acute cerebral process. ASSESSMENT: 1. Possible healthcare-associated pneumonia. 2. Acute respiratory failure superimposed on chronic respiratory failure requiring intubation. 3. Morbid obesity. 4. Hypoalbuminemia. 5. Noncompliance. SUGGESTIONS: Obviously, we may have to consider possibility of healthcare-associated pneumonia. Consequently combination of vancomycin, Zosyn and Levaquin is completely appropriate till microbiology data available to us. Dr. Anguiano, thank you for requesting my suggestions in the care of your patient. <ELECTRONICALLY SIGNED> By: Travis Cross MD 10/10/17 1314 1319 1610 Travis Cross MD /nt
[~2017-10-09 01:28] MED LIST changes: +ATIVAN0.5 MG PO; +BREO ELLIPTA 11 EACH INH; +CIPRO500 MG PO; +ELIQUIS5 MG PO; +FLONASE 0.05%50 MCG NASAL
[2017-10-09 03:05] LABS: BE(vivo) 8.1 mmol/L (-2 to +3); HCO3 40.3 mmol/L (22.0-26.0); PCO2 114.2 mmHg (35.0-45.0); PO2 86.1 mmHg (80.0-100.0); pH 7.165 (7.360-7.450); sO2 92.7 % (92.0-98.0)
[2017-10-09 03:32] LABS: ABSOLUTE NEUTROPHILS 5.8 thou/uL (1.4-8.2); BASOPHILS 1.4 % (0.0-2.0); EOSINOPHILS 2.2 % (0.0-3.0); HEMATOCRIT 35.4 % (37.0-47.0); HEMOGLOBIN 10.9 gm/dL (12.0-15.0); MCH 28.1 pg (26.0-34.0); MCHC 30.7 g/dL (28.0-37.0); MCV 91.7 fL (80.0-100.0); MONOCYTES 8.6 % (1.0-8.0); PLATELET COUNT 250 thou/uL (150-400); POLYS 71.8 % (36.0-66.0); RBC 3.86 mil/uL (4.20-5.00); WBC 8.1 thou/uL (4.0-11.0)
[2017-10-09 03:38] LABS: ANION GAP < 0 mmol/L (7-16); BUN 12 mg/dL (7-18); CALCIUM 8.6 mg/dL (8.5-10.1); CHLORIDE 99 mmol/L (98-107); CO2 43 mmol/L (21-32); CREATININE 0.8 mg/dL (0.6-1.0); GLUCOSE 126 mg/dL (74-106); POTASSIUM 4.2 mmol/L (3.5-5.1); SODIUM 138 mmol/L (136-145)
[2017-10-09 03:43] LABS: APTT 32.4 Seconds (24.5-32.8); INR 1.1; PROTIME 10.9 Seconds (9.3-11.4)
[2017-10-09 03:47] LABS: ALBUMIN 2.7 g/dL (3.4-5.0); MAGNESIUM 2.2 mg/dL (1.8-2.4); SGOT 18 U/L (15-37); SGPT 24 U/L (30-65); TOTAL BILIRUBIN 0.2 mg/dL (<0.1-1.0); TOTAL PROTEIN 6.7 g/dL (6.4-8.2); TROPONIN-I <0.06 ng/mL (<0.06)
[2017-10-09 03:48] LABS: URINE BILIRUBIN NEGATIVE (Negative); URINE BLOOD NEGATIVE (Negative); URINE CLARITY CLEAR; URINE COLOR YELLOW; URINE GLUCOSE-RANDOM* NEGATIVE (Negative); URINE KETONES NEGATIVE (Negative); URINE LEUKOCYTES-REFLEX NEGATIVE (Negative); URINE NITRITE-REFLEX NEGATIVE (Negative); URINE PROTEIN (DIPSTICK) TRACE (Negative); URINE SPECIFIC GRAVITY 1.025 (1.005-1.035); URINE UROBILINOGEN 0.2 E.U./dl (0.2-1.0)
[2017-10-09 03:56] LABS: AMP/METHAMP Negative (Negative); BARBITURATES Negative (Negative); BENZODIAZEPINES Negative (Negative); COCAINE Negative (Negative); METHADONE Negative (Negative); OPIATES Negative (Negative); PCP Negative (Negative)
[2017-10-09 05:21] LABS: BE(vivo) 6.9 mmol/L (-2 to +3); PO2 68.4 mmHg (80.0-100.0); sO2 85.3 % (92.0-98.0)
[2017-10-09 05:22] LABS: PCO2 122.7 mmHg (35.0-45.0); pH 7.131 (7.360-7.450)
[2017-10-09 08:33] LABS: BE(vivo) 2.2 mmol/L (-2 to +3); HCO3 32.4 mmol/L (22.0-26.0); PCO2 85.6 mmHg (35.0-45.0); PO2 74.4 mmHg (80.0-100.0); pH 7.196 (7.360-7.450); sO2 90.6 % (92.0-98.0)
[2017-10-09] MEDS ORDERED: BENADRYL25 MG PO (09:15)
[2017-10-09] MEDS ORDERED: NORCO 5-325 TA1 EACH PO (09:17)
[2017-10-09] MEDS ORDERED: PROBIOTIC1 EAC1 PO (09:18)
[2017-10-09] MEDS ORDERED: DEEP SEA NASAL44 M1 NASAL (09:23)
[2017-10-10] VITALS (34 sets, daily range): BP systolic 105–158; BP diastolic 54–82
[2017-10-10 04:38] LABS: CALCIUM 8.8 mg/dL (8.5-10.1); CREATININE 0.7 mg/dL (0.6-1.0); POTASSIUM 4.2 mmol/L (3.5-5.1)
[2017-10-10 05:56] LABS: HEMATOCRIT 33.6 % (37.0-47.0); HEMOGLOBIN 10.6 gm/dL (12.0-15.0); MCHC 31.4 g/dL (28.0-37.0); MCV 89.3 fL (80.0-100.0); RBC 3.76 mil/uL (4.20-5.00); RDW 16.2 % (10.5-14.5); WBC 8.6 thou/uL (4.0-11.0)
[2017-10-10 10:49] LABS: BE(vivo) 11.2 mmol/L (-2 to +3); HCO3 39.5 mmol/L (22.0-26.0); pH 7.351 (7.360-7.450); sO2 96.3 % (92.0-98.0)
[2017-10-11] VITALS (22 sets, daily range): BP systolic 96–157; BP diastolic 40–85
[2017-10-11 05:01] LABS: ABSOLUTE NEUTROPHILS 7.4 thou/uL (1.4-8.2); BASOPHILS 0.2 % (0.0-2.0); EOSINOPHILS 0.1 % (0.0-3.0); HEMATOCRIT 35.6 % (37.0-47.0); HEMOGLOBIN 11.1 gm/dL (12.0-15.0); LYMPHOCYTES 9.9 % (24.0-44.0); MCHC 31.3 g/dL (28.0-37.0); MCV 89.5 fL (80.0-100.0); PLATELET COUNT 270 thou/uL (150-400); POLYS 82.8 % (36.0-66.0); RBC 3.97 mil/uL (4.20-5.00); RDW 16.4 % (10.5-14.5)
[2017-10-11 05:41] LABS: CALCIUM 8.2 mg/dL (8.5-10.1); CREATININE 0.7 mg/dL (0.6-1.0); POTASSIUM 3.8 mmol/L (3.5-5.1)
[2017-10-11 10:53] LABS: BE(vivo) 10.8 mmol/L (-2 to +3); HCO3 38.1 mmol/L (22.0-26.0); PCO2 64.9 mmHg (35.0-45.0); PO2 70.8 mmHg (80.0-100.0); pH 7.387 (7.360-7.450); sO2 93.5 % (92.0-98.0)
[2017-10-12 01:00] VITALS: BP 124/68
[2017-10-12 01:59] VITALS: BP 124/67
[2017-10-12 03:15] VITALS: BP 129/70
[2017-10-12 04:00] VITALS: BP 122/67
[2017-10-12 05:00] VITALS: BP 117/64
[2017-10-12 05:00] LABS: ABSOLUTE NEUTROPHILS 5.4 thou/uL (1.4-8.2); BASOPHILS 0.2 % (0.0-2.0); HEMATOCRIT 32.9 % (37.0-47.0); HEMOGLOBIN 10.4 gm/dL (12.0-15.0); LYMPHOCYTES 14.5 % (24.0-44.0); MCH 28.2 pg (26.0-34.0); MCHC 31.5 g/dL (28.0-37.0); MCV 89.6 fL (80.0-100.0); MONOCYTES 6.7 % (1.0-8.0); PLATELET COUNT 220 thou/uL (150-400); POLYS 78.6 % (36.0-66.0); RBC 3.67 mil/uL (4.20-5.00); RDW 16.9 % (10.5-14.5); WBC 6.9 thou/uL (4.0-11.0)
[2017-10-12 05:07] LABS: ANION GAP < 0 mmol/L (7-16); BUN 19 mg/dL (7-18); CALCIUM 8.3 mg/dL (8.5-10.1); CHLORIDE 107 mmol/L (98-107); CO2 41 mmol/L (21-32); CREATININE 0.7 mg/dL (0.6-1.0); GLUCOSE 138 mg/dL (74-106); POTASSIUM 4.1 mmol/L (3.5-5.1); SODIUM 145 mmol/L (136-145)
[2017-10-12 06:00] VITALS: BP 108/69
[2017-10-13 06:01] VITALS: BP 129/76
[2017-10-13 07:52] VITALS: BP 146/85
[2017-10-13] MEDS ORDERED: AMOX TR-K CLV1 EAC3 PO (12:23)
[2017-10-13] MEDS ORDERED: PREDNISONE 10 M10 MG PO (12:26)
== END 2017-10-13 15:38 | DRG 208 ==
LOC: ER 01:28 → EROBS 03:38 → ICU 03:38 → 2N 04:41 → ICU 05:06 → 4E 10-12 18:47
PROVIDERS: Emergency Medicine; Hospitalist; Internal Medicine Pulmonary Disease; Nurse Practitioner Family
PROC: 5A09357 Assistance with Respiratory Ventilation, Less than 24 Consecutive Hours, Continuous Positive Airway Pressure (ICD-10-PCS; principal; 2017-10-09)
PROC: B548ZZA Ultrasonography of Superior Vena Cava, Guidance (ICD-10-PCS; principal; 2017-10-09)
PROC: 02HV33Z Insertion of Infusion Device into Superior Vena Cava, Percutaneous Approach (ICD-10-PCS; principal; 2017-10-09)
PROC: 0BH17EZ Insertion of Endotracheal Airway into Trachea, Via Natural or Artificial Opening (ICD-10-PCS; principal; 2017-10-09)
PROC: 5A1945Z Respiratory Ventilation, 24-96 Consecutive Hours (ICD-10-PCS; principal; 2017-10-09)
DX: J96.21 Acute and chronic respiratory failure with hypoxia (principal); J18.9 Pneumonia, unspecified organism; Z68.44 Body mass index [BMI] 60.0-69.9, adult; I50.30 Unspecified diastolic (congestive) heart failure; J44.1 Chronic obstructive pulmonary disease with (acute) exacerbation; L97.819 Non-pressure chronic ulcer of other part of right lower leg with unspecified severity; K56.7 Ileus, unspecified; F11.20 Opioid dependence, uncomplicated; L03.115 Cellulitis of right lower limb; I13.0 Hypertensive heart and chronic kidney disease with heart failure and stage 1 through stage 4 chronic kidney disease, or unspecified chronic kidney disease; J96.22 Acute and chronic respiratory failure with hypercapnia; E66.9 Obesity, unspecified; M17.0 Bilateral primary osteoarthritis of knee; E78.5 Hyperlipidemia, unspecified; E03.9 Hypothyroidism, unspecified; N18.3 Chronic kidney disease, stage 3 (moderate); G89.4 Chronic pain syndrome; G47.33 Obstructive sleep apnea (adult) (pediatric); F17.210 Nicotine dependence, cigarettes, uncomplicated; I87.2 Venous insufficiency (chronic) (peripheral); E66.01 Morbid (severe) obesity due to excess calories; L30.8 Other specified dermatitis; I25.10 Atherosclerotic heart disease of native coronary artery without angina pectoris; E11.22 Type 2 diabetes mellitus with diabetic chronic kidney disease; Y95 Nosocomial condition; I89.0 Lymphedema, not elsewhere classified; E11.51 Type 2 diabetes mellitus with diabetic peripheral angiopathy without gangrene; I25.2 Old myocardial infarction; Z86.711 Personal history of pulmonary embolism; Z87.898 Personal history of other specified conditions; Z91.19 Patient's noncompliance with other medical treatment and regimen; Z79.899 Other long term (current) drug therapy
CPT/HCPCS: 10078; 10183; 27000

== ENCOUNTER 2018-11-30 19:21 | Inpatient (IN) | payer OTHER ==
[~2018-11-30] VITALS: Ht 160 cm; Wt 156.5 kg
--- NOTE | ~2018-11-30 | EMS ---
[address] [address] EMS Patient Care Report Name: ELAINE RAMIREZ Room #: 358-P ADM IN M.R.#: [id number] Admission: 11/30/18 Attend Phys: Sandy Joe Discharge: Date of : 59 Report #: [id number] THIS REPORT FOR: //name// Report Transmitted: 12/01/2018 06:00 EMS Care Summary [place], [place]/[facility] Incident [id number] @ 11/30/2018 18:42 Incident Location [address] [place] [address] Patient ELAINE RAMIREZ Female, 62 Years 1955 Patient Address [address] [place], [place] [id number] Patient History Behavioral/Psychiatric Disorder,Congestive Heart Failure (CHF),Hypertension,Kidney/Renal Failure,Hyperlipidemia,Deep Vein Thrombosis, Patient Allergies No known allergies, Chief Complaint Respiratory distress Disposition Transported No Lights/[place] Reason Breathing Problem Transported To [facility] Narrative 62 y/o female with respiratory distress. On arrival found pt in [place] bed. Pt stated that she has had a cough and shortness of breath for three days. Staff stated pt has a temp of 102F. EMS placed pt on [address] [address] EMS Patient Care Report Name: ELAINE RAMIREZ Room #: 358-P [facility] IN M.R.#: [id number] Admission: 11/30/18 Attend Phys: Sandy Joe Discharge: Date of : 59 Report #: [id number] a NRB @ 15 lpm. EMS P28/M28 transferred pt to stretcher and into ambulance. Once in ambulance EMS administered a duoneb treatment, pt stated that after the treatment she was feeling better. EMS monitored pt/VS/ECG en route to [facility] ED. Transferred care of pt to [facility] ED RN without incident. Initial Vitals @PTASpO2: 82, @19:05P: 116,BP: 107/53,SpO2: 94, @19:00P: 119,R: 24,BP: 98/49,Pain: 0/10,GCS: 15,SpO2: 96,Revised Trauma: 12, @19:15P: 117,BP: 163/68,SpO2: 95, Assessments @18:50MENTAL:No Abnormalities,SKIN:Hot,HEENT:Head/Face: No Abnormalities,Eyes: No Abnormalities,Neck/Airway: No Abnormalities,LUNG SOUNDS:General: No Abnormalities,Left Upper: No Abnormalities,Right Upper: No Abnormalities,Left Lower: No Abnormalities,Right Lower: No Abnormalities,ABDOMEN:General: No Abnormalities,Left Upper: No Abnormalities,Right Upper: No Abnormalities,Left Lower: No Abnormalities,Right Lower: No Abnormalities,PELVIS//GI:No Abnormalities,EXTREMITIES:Capillary Refill: Left Upper: < 2 Sec,Left Arm: No Abnormalities,Right Arm: No Abnormalities,Left Leg: No Abnormalities,Right Leg: No Abnormalities,PULSE:Radial: 2+ Normal,NEURO:No Abnormalities, Impression Acute Respiratory Distress (Dyspnea) Procedures @18:50ALS AssessmentResponse: UnchangedSucceeded@PTAOxygen FlowRate: 3 Device: CO2 Nasal Cannula Response: UnchangedSucceeded@18:53Oxygen FlowRate: 15 Device: Non Re-breather Mask (NRB) Response: ImprovedSucceeded@18:57Albuterol - 2.5 Milligrams (mg) - NebulizedResponse: Improved@18:57Atrovent - 0.5 Milligrams (mg) - NebulizedResponse: Improved@18:57Oxygen FlowRate: 8 Device: Nebulizer Response: ImprovedSucceeded@18:55Saline Lock 0cc (20 ga) Site: Hand-LeftResponse: UnchangedFailed@19:00Saline Lock 0cc (20 ga) Site: Hand-RightResponse: UnchangedFailed Timeline MOLD CLOSER,Oxygen FlowRate: 3 Device: CO2 Nasal Cannula Response: UnchangedSucceeded, MOLD CLOSER,BP: / M,PULSE: ,RR: R,SPO2: 82 Ox,ETCO2: ,BG: ,PAIN: ,GCS: , 18:41,Call Received 18:41,Dispatch Notified 18:42,Dispatched 18:42,En Route 18:47,On Scene 18:50,At Patient [address] [address] EMS Patient Care Report Name: ELAINE RAMIREZ Room #: 358-P ADM IN M.R.#: [id number] Admission: 11/30/18 Attend Phys: Sandy Joe Discharge: Date of : 59 Report #: [id number] 18:50,ALS Assessment,Response: UnchangedSucceeded, 18:53,Oxygen FlowRate: 15 Device: Non Re-breather Mask (NRB) Response: ImprovedSucceeded, 18:55,Saline Lock 0cc 20 ga Site: Hand-Left,Response: UnchangedFailed, 18:57,Albuterol - 2.5 Milligrams (mg) - Nebulized,Response: Improved 18:57,Atrovent - 0.5 Milligrams (mg) - Nebulized,Response: Improved 18:57,Oxygen FlowRate: 8 Device: Nebulizer Response: ImprovedSucceeded, 19:00,Saline Lock 0cc 20 ga Site: Hand-Right,Response: UnchangedFailed, 19:00,BP: 98/49 M,PULSE: 119,RR: 24 R,SPO2: 96 Ox,ETCO2: ,BG: ,PAIN: 0,GCS: 15, 19:05,BP: 107/53 M,PULSE: 116,RR: R,SPO2: 94 Ox,ETCO2: ,BG: ,PAIN: ,GCS: , 19:09,Depart Scene 19:15,BP: 163/68 M,PULSE: 117,RR: R,SPO2: 95 Ox,ETCO2: ,BG: ,PAIN: ,GCS: , 19:18,At Destination 19:30,Call Closed Disclaimer v1.1 Copyright 2019 [employer] This EMS Care Summary contains data elements from the applicable legal record (which may be displayed differently). It is designed to provide pertinent information for the following purposes: continuity of care, clinical quality, and state data reporting. The complete legal record is available to ED staff and administrators of the receiving hospital in [employer]'s Patient Tracker. All data is provided "as is."
[~2018-11-30 19:21] MED LIST changes: +AMOX TR-K CLV1 EAC3 PO; +BENADRYL25 MG PO; +DEEP SEA NASAL44 M1 NASAL; +PREDNISONE 10 M10 MG PO; +PROBIOTIC1 EAC1 PO
[2018-11-30 19:22] VITALS: BP 96/40
[2018-11-30] MEDS ORDERED: LASIX 80 MG TAB80 MG PO (19:31)
[2018-11-30] MEDS ORDERED: KEFLEX500 M2 PO (19:32)
[2018-11-30] MEDS ORDERED: NOVOLOG100 UNIT/1 SUBQ (19:40)
[2018-11-30] MEDS ORDERED: VOLTAREN GEL 1100 G2 TOP (19:41)
[2018-11-30 20:01] LABS: ANION GAP 3 mmol/L (7-16); BUN 9 mg/dL (7-18); CALCIUM 8.6 mg/dL (8.5-10.1); CHLORIDE 98 mmol/L (98-107); CO2 34 mmol/L (21-32); CREATININE 0.8 mg/dL (0.6-1.0); GLUCOSE 139 mg/dL (74-106); POTASSIUM 4.5 mmol/L (3.5-5.1); SODIUM 135 mmol/L (136-145)
[2018-11-30 20:04] LABS: ABSOLUTE NEUTROPHILS 9.6 thou/uL (1.4-8.2); BASOPHILS 0.3 % (0.0-2.0); EOSINOPHILS 1.1 % (0.0-3.0); HEMATOCRIT 35.4 % (37.0-47.0); HEMOGLOBIN 11.7 gm/dL (12.0-15.0); LYMPHOCYTES 8.9 % (24.0-44.0); MCHC 33.2 g/dL (28.0-37.0); MCV 96.4 fL (80.0-100.0); MONOCYTES 5.7 % (1.0-8.0); RBC 3.67 mil/uL (4.20-5.00); RDW 14.9 % (10.5-14.5); WBC 11.4 thou/uL (4.0-11.0)
[2018-11-30 20:10] LABS: APTT 29.8 Seconds (24.5-32.8); PROTIME 10.4 Seconds (9.3-11.4)
[2018-11-30 20:11] LABS: ALBUMIN 2.4 g/dL (3.4-5.0); SGOT 12 U/L (15-37); SGPT 11 U/L (30-65); TOTAL BILIRUBIN 0.4 mg/dL (<0.1-1.0); TOTAL PROTEIN 6.2 g/dL (6.4-8.2); TROPONIN-I <0.06 ng/mL (<0.06)
[2018-11-30 20:19] LABS: BE(vivo) 5.3 mmol/L (-2 to +3); HCO3 32.7 mmol/L (22.0-26.0); PCO2 VENOUS 61.4 mmHg (41.0-51.0); PO2 VENOUS 56.6 mmHg (35.0-45.0)
[2018-11-30 20:32] LABS: PLATELET COUNT 167 thou/uL (150-400)
[2018-11-30 21:06] LABS: URINE BILIRUBIN NEGATIVE (Negative); URINE BLOOD NEGATIVE (Negative); URINE CLARITY CLEAR; URINE COLOR YELLOW; URINE GLUCOSE-RANDOM* NEGATIVE (Negative); URINE KETONES NEGATIVE (Negative); URINE LEUKOCYTES-REFLEX NEGATIVE (Negative); URINE NITRITE-REFLEX NEGATIVE (Negative); URINE PROTEIN (DIPSTICK) TRACE (Negative); URINE SPECIFIC GRAVITY 1.015 (1.005-1.035); URINE UROBILINOGEN 0.2 E.U./dl (0.2-1.0)
[2018-11-30 23:35] VITALS: BP 106/54
[2018-11-30 23:51] VITALS: BP 106/54
[2018-12-01 00:28] VITALS: BP 120/57
[2018-12-01 04:50] VITALS: BP 135/62
[2018-12-01 05:19] LABS: ABSOLUTE NEUTROPHILS 9.3 thou/uL (1.4-8.2); BASOPHILS 0.2 % (0.0-2.0); HEMATOCRIT 35.3 % (37.0-47.0); HEMOGLOBIN 11.3 gm/dL (12.0-15.0); LYMPHOCYTES 4.1 % (24.0-44.0); MCH 31.2 pg (26.0-34.0); MCHC 32.1 g/dL (28.0-37.0); MCV 97.3 fL (80.0-100.0); MONOCYTES 1.1 % (1.0-8.0); PLATELET COUNT 170 thou/uL (150-400); POLYS 94.6 % (36.0-66.0); RBC 3.63 mil/uL (4.20-5.00); WBC 9.8 thou/uL (4.0-11.0)
[2018-12-01 05:39] LABS: CALCIUM 8.4 mg/dL (8.5-10.1); CREATININE 0.7 mg/dL (0.6-1.0); POTASSIUM 4.2 mmol/L (3.5-5.1)
--- NOTE | 2018-12-01 05:44 | NUR ---
PATIENT STATES SHE IS ALLERGIC TO HAY FEVER....
[2018-12-01 07:26] VITALS: BP 122/66
--- NOTE | 2018-12-01 07:52 | NUR ---
PATIENT IS ALERT AND ORIENTED. PATIENT IS ON 40L HIGH FLOW NC 50%FIO2. PATIENT HAS A CONTINOUS PULSE OX. PATIENT IS STRESS INCONTIENT. PATIENTS LBM WAS THE 28TH. PATIENT IS 3LNC BASELINE. PAITNET HAS SOME EXCORIATION UNDER BREAST. PAITNET HAS NO TEMP. PATIENT HAS FLUIDS NS AT 75ML. PATIENT IS FROM [facility]. PATIENT IS RESTING COMFORTABLY IN BED. WCM. PATIENT IS PROGRESSING TO GOALS.
--- NOTE | 2018-12-01 09:14 | NUR ---
Assess due to notification of right lower extremity chronic wound. Admit from assisted w/ acute/chronic respiratory failure. Hx DM, COPD, NE. Extreme class III obesity, BMI 61.1. On carb control, heart healthy diet. Eating 100% of meals and high protein sources. Low nutrition risk
[2018-12-01 17:13] VITALS: BP 139/74
[2018-12-01 19:30] VITALS: BP 124/63
--- NOTE | 2018-12-01 19:40 | NUR ---
PATIENT ALERT AND ORIENTED X4, ANXIOUS AT TIMES. PAIN MILDLY CONTROLLED WITH MEDICATION. NORMAL SINUS RHYTHM W/ BBB ON TELEMETRY MONITORE. ON HIGHFLOW NASAL CANNULA. TOLERATING DIET WELL. BLOOD SUGARS MONITORED. NO SIGNIFICANT EVENTS, NICOTINE PATCH PLACED ON LEFT ARM. NO SIGNS OF ACUTE DISTRESS NOTED AT THIS TIME. WILL CONTINUE TO MONITOR.
--- NOTE | 2018-12-02 03:14 | NUR ---
patient is alert and oriented. patient is obessive and anxious. patient is a one to two piviot transfer to [facility]. patient is nsr with bbb on tele. patient is incontient with external female cath. patient is 8lnc. base line is 3l. patients pain is controlled. patient is resting comfortably in bed. wcm. patient is progressing to goals.
[2018-12-02 03:30] VITALS: BP 122/58
--- NOTE | 2018-12-02 06:47 | HC ---
[facility] [place] [address] CONSULTATION Name: ELAINE RAMIREZ Room #: 358-P ADM IN M.R.#: [id number] Admission: 11/30/18 Attend Phys: Sandy Joe Discharge: Date of : 59 Report #: [id number] THIS REPORT FOR: //name// CC: Brent Joe HISTORY OF PRESENT ILLNESS: A 62-year-old white woman, resident of a local shelter, admitted through the Emergency Room with increasing shortness of breath of several days' duration and was told she was running fever and was told she had pneumonia. She has chronic obstructive pulmonary disease, uses 3 liters of oxygen at the shelter on regular basis. ALLERGIES: None listed. MEDICATIONS: The patient is currently on ____ gabapentin, atorvastatin, KCl, multivitamins, lactobacillus, fluticasone nasal spray, furosemide by mouth, bupropion, lisinopril, apixaban, loratadine, guaifenesin, levothyroxine, insulin lispro per sliding scale, methylprednisolone 40 mg IV every 8 hours, vancomycin 1 gram IV every 8 hours, Zosyn 3.375 grams IV every 8 hours, Levaquin 750 mg IV daily, oxycodone controlled 50 mg b.i.d., Atrovent and albuterol inhalation treatment every 4 hours p.r.n., hydrocodone bitartrate, lorazepam p.r.n., polyethylene glycol p.r.n., diclofenac p.r.n., Benadryl p.r.n., albuterol p.r.n., glucose, glucagon p.r.n., ondansetron p.r.n., normal saline at 1000 mL IV every 8 hours. PAST MEDICAL HISTORY: Chronic obstructive pulmonary disease, O2 dependent. Varicose vein lower extremities with stasis dermatitis, right lower extremity, worse on left. Hypertension. Diabetes mellitus. Obesity. Dyslipidemia. Hypothyroidism. Diastolic congestive heart failure. SOCIAL HISTORY: See H and P, old records. FAMILY HISTORY: See H and P, old records. REVIEW OF SYSTEMS: See H and P and as above. PHYSICAL EXAMINATION: GENERAL: Morbidly obese white woman. VITAL SIGNS: Temperature maximum 99.8, pulse 116, down to 92, respirations 24 down to 20, BP 96/40 up to 135/62. Height 5 feet 3 inches, weight 345 pounds. O2 saturation is 92-91% on FiO2 of 50%. HEENMT: Within range. NECK: Supple, no thyromegaly. BREASTS: Deferred. LUNGS: Decreased breath sounds throughout. HEART: S1, S2. No gallop. ABDOMEN: Obese, soft, no masses or megaly. [address] [address] CONSULTATION Name: ELAINE RAMIREZ Room #: 358-P [facility] IN M.R.#: [id number] Admission: 11/30/18 Attend Phys: Sandy Joe Discharge: Date of : 59 Report #: [id number] EXTREMITIES: Pressure dressings right leg, not removed since painful. NEUROLOGIC: Grossly within normal limits. LABORATORY DATA: Sodium 136, potassium 4.2, BUN 11, creatinine 0.7, glucose 139, 234, albumin 2.4 g/dL. NT-proBNP 1181. WBC 9800, hemoglobin 11.3 g/dL, platelets 170,000. Urinalysis revealed trace protein, otherwise negative. ABGs revealed pH 7.34, pCO2 of 61.4, pO2 of 70.8, bicarbonate 32.7, lactate normal, O2 saturation 95% on Ventimask, FiO2 of 50%. RADIOLOGY EVALUATION: Chest x-ray revealed cardiomegaly and possible retrocardiac left basilar infiltrate. ASSESSMENT: 1. Possible left lower lobe pneumonia. 2. Acute exacerbation of chronic obstructive pulmonary disease. 3. Hypoalbuminemia. 4. Mild anemia. 5. Diabetes mellitus. 6. Morbid obesity. 7. Stasis dermatitis of lower extremities. SUGGESTIONS: Recommend continuous steroids and current antibiotics, obtain urine for Legionella and Pneumococcus pneumoniae antigen, ESR and CRP. ____ thank you for requesting my suggestions in the care of your patient. <ELECTRONICALLY SIGNED> By: Travis Cross MD 12/02/18 0647 0706 1359 Travis Cross MD /nt
[2018-12-02 07:54] VITALS: BP 134/77
--- NOTE | 2018-12-02 14:55 | HC ---
[facility] [place] [address] CONSULTATION Name: ELAINE RAMIREZ Room #: 358-P [facility] IN M.R.#: [id number] Admission: 11/30/18 Attend Phys: Sandy Joe Discharge: Date of : 59 Report #: [id number] THIS REPORT FOR: //name// CC: Brent Joe DATE OF SERVICE: 12/01/2018 PULMONARY CONSULTATION REFERRING PHYSICIAN: Dr. Joe. REASON FOR REFERRAL: Dyspnea. HISTORY OF PRESENT ILLNESS: The patient is a 62-year-old white female who presents to the ED with fever, cough and dyspnea. A pulmonary consultation was requested. The patient has known COPD. She is oxygen dependent, usually at 3 liters of O2. She was last hospitalized about a year ago resulting in acute respiratory failure, due to hypersomnolence, hypercapnia. She was in her usual state of health She resides at a facility. Three days prior to presentation, the patient had developed a fever, she then progressed to developing cough productive of purulent sputum. Sputum was said to be greenish. Otherwise, denies any chest pain, hemoptysis, nausea, vomiting or diarrhea. PAST MEDICAL HISTORY: COPD, no past history of ELI though she was suspicious to have sleep disordered breathing, coronary artery disease, past myocardial infarction, hypertension, diabetes mellitus type 2, osteoarthritis of both knees, hyperlipidemia, history of DVT/PE, hypothyroidism, peripheral artery disease, chronic kidney disease, chronic diastolic heart failure, chronic lower extremity edema, varicose veins involving lower extremities with ulcers. ALLERGIES: None to medications. HOME MEDICATIONS: From the facility include Claritin 10 mg once a day, acetazolamide 250 mg p.o. once a day, Tylenol p.r.n., MiraLax, Lipitor 40 mg once a day, lisinopril 10 mg once a day, multivitamins once a day, gabapentin, Neurontin 200 mg in the morning and 300 mg p.o. at bedtime, senna 8.6 mg once a day, Flonase nasal spray, OxyContin 15 mg p.o. b.i.d., ciprofloxacin 500 mg p.o. b.i.d., Benadryl 25 mg p.o. p.r.n., probiotic, DuoNeb q.4 hours, Wellbutrin 75 mg once a day, Eliquis 5 mg p.o. b.i.d., Breo 100/25 mcg 1 puff once a day, Ativan 0.5 mg once a day, potassium supplements, Lasix 80 mg once a day, [address] [address] CONSULTATION Name: ELAINE RAMIREZ Room #: 358-P [facility] IN M.R.#: [id number] Admission: 11/30/18 Attend Phys: Sandy Joe Discharge: Date of : 59 Report #: [id number] 500 mg p.o. b.i.d., Synthroid 0.05 mg once a day and Voltaren gel 1% p.r.n. FAMILY HISTORY: Noncontributory. SOCIAL HISTORY: The patient does smoke and has done so for most of her life. She denies any alcohol use. She resides at a facility called [facility]. REVIEW OF SYSTEMS: As mentioned above, otherwise 10-point system review negative. PHYSICAL EXAMINATION: GENERAL: She is awake, alert, in no distress. VITAL SIGNS: Temperature is 98 degrees Fahrenheit, pulse is 92, respiratory rate is 20, blood pressure 135/62 mmHg, saturation is 92%. HEENT: Normocephalic, atraumatic. NECK: Supple, without lymphadenopathy or thyromegaly. CHEST: Breath sounds are fair, decreased bilaterally, expiratory wheezes. CARDIOVASCULAR: Normal S1, S2. No murmurs or gallop. There is no JVD. There is no carotid bruit. Pulses are 2+/4+ bilaterally. ABDOMEN: Soft, nontender, mildly obese. No organomegaly or masses felt. GENITOURINARY: Deferred. RECTAL: Deferred. EXTREMITIES: No edema, cyanosis or clubbing. NEUROLOGIC: Grossly intact. LABORATORY DATA: Portable chest x-ray shows cardiomegaly, questionable left lower lobe infiltrates. Electrolytes are normal and creatinine is normal. WBC 11,400, hemoglobin is normal. Liver enzymes are grossly unremarkable. Albumin is 2.4. IMPRESSION: 1. Productive cough, febrile illness in this 62-year-old white female with a history of chronic obstructive pulmonary disease, oxygen dependent. Chest x-ray suggests possible left lower lobe infiltrates. She had a productive cough of purulent sputum. Pneumonia is likely, need to consider nosocomial infections. 2. Chronic obstructive pulmonary disease, severity undefined, oxygen dependent. 3. Risk for sleep apnea, though she has never been actually diagnosed with sleep apnea with morbid obesity, body mass index of 61, she should be evaluated with a sleep study as an outpatient in the near future. 4. Morbid obesity as mentioned above. 5. Coronary artery disease with past history of myocardial infarction. 6. Hypertension. 7. Diabetes mellitus type 2. 8. Chronic pain, on chronic narcotic. 9. Remote history of pulmonary embolus. The patient remains on anticoagulation [facility] [address] [place] [address] CONSULTATION Name: ELAINE RAMIREZ Room #: 358-P ADM IN M.R.#: [id number] Admission: 11/30/18 Attend Phys: Sandy Whitt Heath Discharge: Date of : 59 Report #: [id number] given presence of risk factors. 10. Hypothyroidism. 11. Peripheral artery disease. 12. Chronic kidney disease. RECOMMENDATION: Agree with broad-spectrum antibiotics to cover for nosocomial infections, we will defer to Infectious Disease, continue bronchodilators, wean O2 for saturation 90%. DVT prophylaxis has been addressed. GI prophylaxis will be recommended given corticosteroid use. Once stable as an outpatient, outpatient workup for possible sleep apnea would be helpful. Thank you for this consultation. <ELECTRONICALLY SIGNED> By: Marcus Lagos MD 12/02/18 1455 [id number] [id number] Marcus Lagos MD /nt
--- NOTE | 2018-12-02 15:43 | NUR ---
ASSUMED CARE THIS AM. ORIENTED TIMES 4. CONTINUES TO COMPLAIN OF PAIN IN KNEES AND BLE. SCHEDULED OXYCODONE BID AND HYDROCODONE AVAILABLE FOR BREAKTHROUGH PAIN, THIS REGIMEN IS EFFECTIVE. NO COMPLAINTS OF CP OR NAUSEA. SLOWLY PROGRESSING TOWARD GOALS.
[2018-12-02 20:00] VITALS: BP 135/65
--- NOTE | 2018-12-03 03:33 | NUR ---
PATIENT IS PROGRESSING SLOWLY IN HER CARE PLAN. VITAL SIGNS STABLE WITH PATIENT HAVING NO COMPLAINTS OF NAUSEA. PATIENT DID COMPLAIN OF PAIN IN RIGHT LOWER LEG WHICH WAS TREATED THROUGH MEDICATIONS AND NON PHARMACOLOGICAL INTERVENTION. FULLY ORIENTED, PATIENT IS VERY ANXIOUS AND IS INCESSANT WITH REQUESTS MANY OF WHICH ARE CONTRAINDICATED BY DOCTOR ORDERS AND HER CARE PLAN. BREATHING STABLE ON EIGHT LITERS OF OXYGEN EVIDENCED BY ASSESSMENT AND READINGS FROM CONTINUOUS SATURATION MONITOR. NURSE WAS RELUCTANT TO WEAN PATIENT DOWN OVERNIGHT DUE TO POSSIBLE UNDIAGNOSED SLEEP APNEA. WOUND CARE TO RIGHT LOWER EXTREMITY. PATIENT HAS BEEN INCONTINENT FREQUENTLY REQUIRING MULTIPLE BED CHANGES. SHE FINALLY AGREED TO EXTERNAL CATHETER WHICH WAS MODERATELY SUCCESSFUL. CONTINUE PLAN OF CARE.
[2018-12-03 03:55] VITALS: BP 128/62
[2018-12-03 07:17] VITALS: BP 146/86
[2018-12-03 15:28] VITALS: BP 123/55
[2018-12-03 19:08] VITALS: BP 132/66
--- NOTE | 2018-12-03 19:19 | NUR ---
PT ALERT AND ORIENTED TIMES FOUR. VSS, 97%6L, SR ON TELE. PT C/O RIGHT LEG PAIN PRN AND SCHEDULED PAIN MEDICATIONS CONTROLLING PAIN WELL. PT UP SITTING IN THE CHAIR FOR MOST OF THE SHIFT. PT TOLERATES MEDS AND MEALS. PT SLOWLY PROGRESSING TOWRADS POC GOALS.
[2018-12-04 04:38] VITALS: BP 152/84
--- NOTE | 2018-12-04 04:43 | NUR ---
ON O2 AT 6L PER NC. HAS DENIED ANY SOA WHILE AT REST THROUGHOUT THE NIGHT. LUNGS DIMINISHED THROUGHOUT. NO OBSERVED COUGH. NO FEVERS NOTED, DENIED ANY CHILLS. PAIN MEDICATION PER ORDERS. FREQUENTLY ASKING FOR COFFEE, TEA AND DIET SODA.
[2018-12-04 05:30] LABS: ABSOLUTE NEUTROPHILS 6.8 thou/uL (1.4-8.2); BASOPHILS 0.1 % (0.0-2.0); EOSINOPHILS 0.1 % (0.0-3.0); HEMATOCRIT 37.1 % (37.0-47.0); HEMOGLOBIN 12.2 gm/dL (12.0-15.0); LYMPHOCYTES 9.5 % (24.0-44.0); MCH 31.6 pg (26.0-34.0); MCHC 32.7 g/dL (28.0-37.0); MCV 96.5 fL (80.0-100.0); MONOCYTES 4.2 % (1.0-8.0); PLATELET COUNT 189 thou/uL (150-400); POLYS 86.1 % (36.0-66.0); RBC 3.85 mil/uL (4.20-5.00); RDW 14.8 % (10.5-14.5); WBC 7.9 thou/uL (4.0-11.0)
[2018-12-04 07:24] VITALS: BP 124/59
--- NOTE | 2018-12-04 07:55 | EKG ---
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: beulah : 1955 Requested By: Aroldo Marie Order Number: [id number] MD: Randal Ding Measurements Intervals [place] Rate: 114 P: 74 TN: 157 QRS: 84 QRSD: 129 T: 46 QT: 321 QTc: 443 Interpretive Statements Sinus tachycardia Rightward axis Right bundle branch block Compared to ECG 10/09/2017 03:00:15 No significant change was found Electronically Signed On 12-04-2018 7:54:54 CDT by Randal Ding [email or web address] <ELECTRONICALLY SIGNED> By: Randal Ding MD, [facility] 12/04/18 0754 32 32 Randal Ding MD, [facility] /EPI
--- NOTE | 2018-12-04 11:29 | NUR ---
Received awake on bed. Due medications given as prescribed, able to swallow tablets w/o difficulty. A+Ox4. On heart monitoring- strips attached to chart, no chest pain noted. On O2 at 3lpm via nasal cannula, pt skin intact and no redness noted, with loose cough noted but unable to expectorate phlegm. On blood monitoring- taken and recorded accordingly, with sliding scale prescribed. With external catheter connected to suction in place- output measured and recorded accordingly, draining light yellow urine. Vital signs stable. With bilateral leg edema- legs kept elevated. With SL at R upper arm and Left FA- intact and flushing well. With wound at R Lower extremity- dressing intact, due for changing today. Maintained on isolation due to MRSA from wound. Falls risk- falls bundle in place. Assisted in ADLs.
--- NOTE | 2018-12-04 13:16 | NUR ---
dp sent information to [facility], patient is from [place].
[2018-12-04 14:46] VITALS: BP 136/93
--- NOTE | 2018-12-04 14:59 | NUR ---
AT RISK EVAL; NO WOUNDS. INCONTINENT OF URINE. CANNOT COMMUNICATE. CANNOT TURN. ABUMIN 2.5. RECOMMENDATION USE BARRIER CREAM TO NADYA-RECTUM DAILY/PRN RN PRESENT
--- NOTE | 2018-12-04 15:09 | NUR ---
WOUND CONSULT; RIGHT LE CELLULITIS WOUND IDENTIFIED. S/S CONSISTANT WITH VENOUS STASIS DISEASE. NO S/S OF INFECTION. THE PATIENT IS PLEASANT AND COOPERATIVE. DENIES PAIN. GOING HOME TOMMORROW. YEARS OF HX OF VENOUS STASIS DISEASE PATIENT STATES. RECOMMENDATION; XEROFORM, ABD, KERLIX, AMARILIS WRAP. DISCUSSED WITH RN
--- NOTE | 2018-12-04 15:26 | NUR ---
INITIAL ASSESSMENT: SW received consult for insurance questions. SW reviewed chart and spoke with nursing and attending physician. Pt was admitted from [facility] due to sepsis/HCAP/Respiratory failure. Pt is progressing towards goals for discharge. Discharge back to [place] is anticipated for tomorrow. SW met with pt at bedside. Introduced role of SW. Pt is alert/orientated x 4. Pt states that prior to admission, pt was using a w/c for mobility. Pt is normally on 2-3L of O2. Pt confirms plan to return to [place]. shoe planner sent clinical info to [place] for review. SW is following to assist as needed with discharge planning.
[2018-12-04 19:44] VITALS: BP 118/64
[2018-12-05 03:51] VITALS: BP 126/61
--- NOTE | 2018-12-05 05:49 | NUR ---
PT MAKING PROGRESS TOWARDS GOALS. NO FEVERS NOTED OVERNIGHT. X2 DOSES OF HYDROCODONE FOR RLE PAIN TO WHICH PT VOICES MILD RELIEF. PT UP TO BSC TONIGHT WITH ONLY STAND BY ASSISTANCE. NO REPORTED SOA WHEN UP TO BSC. ON O2 AT 3L PER NC OVERNIGHT.
[2018-12-05 08:30] VITALS: BP 159/102
--- NOTE | 2018-12-05 11:38 | NUR ---
Dp called 3w and told Judy litigation secretary to let nurse know patient will dc today and be picked upat 2:oo pm to go to [facility].
[2018-12-05 11:57] VITALS: BP 153/110
[2018-12-05] MEDS ORDERED: LEVAQUIN 750 M750 MG PO (13:05)
[2018-12-05] MEDS ORDERED: IPRAT-ALBUT 0.5-3 ML INH (13:05)
[2018-12-05] MEDS ORDERED: ALBUTEROL2.5 MG/31 INH (13:05)
[2018-12-05] MEDS ORDERED: MUCINEX600 MG PO (13:05)
[2018-12-05] MEDS ORDERED: PREDNISONE 10 M10 MG PO (13:05)
--- NOTE | 2018-12-05 14:01 | NUR ---
DISCHARGE NOTE: SW reviewed chart and spoke with nursing and attending physician. Pt is medically stable to discharge back to [facility] today. SW updated [facility] post-acute liaison. Transportation scheduled for 1500 per facility's arrangements. master planner to fax discharge orders/summary to facility. Nursing to call report. Chart copy requested. No additional SW needs identified at this time, but is available to assist should needs arise.
--- NOTE | 2018-12-05 15:33 | NUR ---
ASSUMED PATIENT CRAE AT 0700. A/O X4. NO SOB ON 3L. MAX ASSISTED TO BSC. PROGRESSING TOWARDS POC GOALS. DC TO SNF NOW.
== END 2018-12-05 15:34 | DRG 177 ==
LOC: ER 19:21 → EROBS 20:25 → 3W 20:25
PROVIDERS: Emergency Medicine; Nurse Practitioner Family; ADMIT Hospitalist
DX: J15.6 Pneumonia due to other Gram-negative bacteria (principal); J96.22 Acute and chronic respiratory failure with hypercapnia; J96.21 Acute and chronic respiratory failure with hypoxia; J44.1 Chronic obstructive pulmonary disease with (acute) exacerbation; I13.0 Hypertensive heart and chronic kidney disease with heart failure and stage 1 through stage 4 chronic kidney disease, or unspecified chronic kidney disease; J44.0 Chronic obstructive pulmonary disease with (acute) lower respiratory infection; I50.32 Chronic diastolic (congestive) heart failure; Z68.44 Body mass index [BMI] 60.0-69.9, adult; J15.212 Pneumonia due to Methicillin resistant Staphylococcus aureus; E11.22 Type 2 diabetes mellitus with diabetic chronic kidney disease; N18.3 Chronic kidney disease, stage 3 (moderate); I83.015 Varicose veins of right lower extremity with ulcer other part of foot; I87.8 Other specified disorders of veins; E78.5 Hyperlipidemia, unspecified; I87.2 Venous insufficiency (chronic) (peripheral); E03.9 Hypothyroidism, unspecified; M17.0 Bilateral primary osteoarthritis of knee; F41.9 Anxiety disorder, unspecified; E11.51 Type 2 diabetes mellitus with diabetic peripheral angiopathy without gangrene; I25.10 Atherosclerotic heart disease of native coronary artery without angina pectoris; G89.4 Chronic pain syndrome; E66.01 Morbid (severe) obesity due to excess calories; F17.200 Nicotine dependence, unspecified, uncomplicated; Z86.711 Personal history of pulmonary embolism; Z86.718 Personal history of other venous thrombosis and embolism; I25.2 Old myocardial infarction; Z79.01 Long term (current) use of anticoagulants; Z79.4 Long term (current) use of insulin; Z79.899 Other long term (current) drug therapy; Z91.19 Patient's noncompliance with other medical treatment and regimen
CPT/HCPCS: 10879

== ENCOUNTER 2018-12-20 09:32 | Inpatient (IN) | payer OTHER ==
[~2018-12-20] VITALS: Ht 160 cm; Wt 127.6 kg
[2018-12-20] VITALS (24 sets, daily range): BP systolic 89–142; BP diastolic 37–104
[~2018-12-20 09:32] MED LIST changes: +IPRAT-ALBUT 0.5-3 ML INH; +KEFLEX500 M2 PO; +MUCINEX600 MG PO; +VOLTAREN GEL 1100 G2 TOP
[2018-12-20 10:47] LABS: ABSOLUTE NEUTROPHILS 11.2 thou/uL (1.4-8.2); BASOPHILS 0.4 % (0.0-2.0); EOSINOPHILS 0.7 % (0.0-3.0); HEMATOCRIT 40.3 % (37.0-47.0); HEMOGLOBIN 12.7 gm/dL (12.0-15.0); LYMPHOCYTES 5.7 % (24.0-44.0); MCH 30.5 pg (26.0-34.0); MCHC 31.5 g/dL (28.0-37.0); MCV 96.7 fL (80.0-100.0); MONOCYTES 4.1 % (1.0-8.0); PLATELET COUNT 192 thou/uL (150-400); POLYS 89.1 % (36.0-66.0); RBC 4.17 mil/uL (4.20-5.00); RDW 15.3 % (10.5-14.5); WBC 12.5 thou/uL (4.0-11.0)
[2018-12-20 10:55] LABS: CALCIUM 9.1 mg/dL (8.5-10.1); POTASSIUM 3.4 mmol/L (3.5-5.1)
[2018-12-20 11:02] LABS: ALBUMIN 3.2 g/dL (3.4-5.0); TOTAL BILIRUBIN 0.2 mg/dL (<0.1-1.0); TOTAL PROTEIN 6.2 g/dL (6.4-8.2)
[2018-12-20 12:06] LABS: URINE BILIRUBIN NEGATIVE (Negative); URINE BLOOD NEGATIVE (Negative); URINE CLARITY CLEAR; URINE COLOR YELLOW; URINE GLUCOSE-RANDOM* NEGATIVE (Negative); URINE KETONES NEGATIVE (Negative); URINE LEUKOCYTES-REFLEX TRACE (Negative); URINE NITRITE-REFLEX NEGATIVE (Negative); URINE PROTEIN (DIPSTICK) NEGATIVE (Negative); URINE SPECIFIC GRAVITY <= 1.005 (1.005-1.035); URINE UROBILINOGEN 0.2 E.U./dl (0.2-1.0)
[2018-12-20 12:32] LABS: AMP/METHAMP Negative (Negative); BARBITURATES Negative (Negative); BENZODIAZEPINES Negative (Negative); COCAINE Negative (Negative); METHADONE Negative (Negative); OPIATES Negative (Negative); PCP Negative (Negative)
--- NOTE | 2018-12-20 13:02 | NUR ---
CONSULTED TO PLACE A MIDLINE FOR A PATIENT IN ER NEEDING ACCESS AND LABS DRAWN. SHE IS WELL KNOWN TO OUR TEAM AND HAS HAD SEVERAL LINES IN THE PAST. DISCUSSED MIDLINE PLACEMENT AND SHE AGREED. THE RIGHT UPPER ARM CEPHALIC WAS WIDLEY PATENT. A #4F POWER MIDLINE WAS PLACED PER POLICY. MIDLINE WAS TRIMMED TO 12CM AND ADVANCED WITHOUT DIFFICULTY. LABS DRAWN AND LINE SECURED. MIDLINE RELEASED FOR USE
--- NOTE | 2018-12-20 13:57 | NUR ---
WOUND CARE CONSULT; INITAL WOUND ASSESSMENT. S/S CONSISTANT WITH VENOUS STASIS DISEASE. WOUND MEANSURES 13 X 9 X 0.1 CM. THIS WOUND DOEN NOT HAVE S/S OF AN ACUTE INFECTION; NO ACUTE PAIN, NOT WARM TO TOUCH AND MINIMAL DRAINAGE. THERE IS A YELLOWISH APPERANCE, BUT LIKELY FROM THE XEROFORM GAUZE. THERE IS NO ACUTE ODOR FROM THIS WOUND. RECOMMNEDATIONS; I APPLIED AN AQUACEL AG, COVERED WITH A FOAM DRESSING SECURED WITH TUBIGRIP FOR EASY ASSESSMENT. (WOUND MEASUREMENTS AND PICTURES TAKEN.
--- NOTE | 2018-12-20 16:06 | NUR ---
1520-RECEIVED PT FROM E.R.--VW 1554-PAGE TO VIA BEEPER FOR UPDATE. PT W HUGE UOP, NO MAINT IVF.--VW
--- NOTE | 2018-12-20 18:08 | NUR ---
1630- RETURNED CALL,UPDATED,DISCUSSED CONCERNS.ORDER NOTED.--VW 1800- CONSULTED,RETURNED PHONE CALL-UPDATED,ORDERS NOTED.--VW
--- NOTE | 2018-12-20 18:12 | NUR ---
PAGE TO . PT W ELI.DESATTING W SLEEP TO ~87% waiting return call.--vw
--- NOTE | 2018-12-20 19:40 | NUR ---
1899-CARE TURNED OVER TO ONCOMING RN.PICTURES TO BE TAKEN BY ONCOMING SHIFT.--VW
[2018-12-20 20:14] LABS: CALCIUM 8.9 mg/dL (8.5-10.1); CREATININE 0.8 mg/dL (0.6-1.0); MAGNESIUM 1.9 mg/dL (1.8-2.4); POTASSIUM 3.4 mmol/L (3.5-5.1)
[2018-12-21] VITALS (25 sets, daily range): BP systolic 99–163; BP diastolic 17–101
--- NOTE | 2018-12-21 02:39 | NUR ---
Pt has been talking, non-stop through the night, yet can answer all orientation questions appropriately. She prefers to have the lights on and was offered some crackers, applesauce, pudding and jello. The levophed has been titrated down to 1 mcg, with good results, MAP has maintained well over the 60 mmHg. Will continue to monitor.
[2018-12-21 05:26] LABS: HEMATOCRIT 41.9 % (37.0-47.0); HEMOGLOBIN 13.3 gm/dL (12.0-15.0); MCH 30.8 pg (26.0-34.0); MCHC 31.9 g/dL (28.0-37.0); MCV 96.7 fL (80.0-100.0); RBC 4.33 mil/uL (4.20-5.00); RDW 15.6 % (10.5-14.5); WBC 9.5 thou/uL (4.0-11.0)
[2018-12-21 06:08] LABS: CALCIUM 8.8 mg/dL (8.5-10.1); CREATININE 0.6 mg/dL (0.6-1.0); POTASSIUM 3.5 mmol/L (3.5-5.1)
--- NOTE | 2018-12-21 12:10 | NUR ---
WOUND CONSULT; ROUNDING TODAY WITH [facility] COORDINATOR AND IAN BSN. THERE IS NO CHANGE IN THE WOUND SINCE YESTERDAY. TODAY SLIVEADINE/MORPHINE CREAM WAS ADDED TO THE ORDERS. DISCUSSED WITH MADELINE
--- NOTE | 2018-12-21 15:04 | NUR ---
CM ASSESSMENT: CASE OPENED FOR DC PLANNING. CLINICAL INFO REVIEWED. ADMITS WITH HYPOTENSION AND MS CHANGE. PT KNOWN TO CM FROM PREVIOUS ADMITS. LIVES IN LTC AT [facility] FOR M[facility] YEARS. NEEDS ASSIST WITH ADLS, 1 PERSON TRANSFER ASSIST, ABLE TO AMBULATE SHORT DISTANCES BEHIND W/C. PT MAKES HER OWN DECISIONS. PLAN TO RETURN TO FACILITY AT DISCHARGE. REQUESTED DC LASER ENGINEER CONTACT FACILITY ADMISSIONS AND FAX H&P.
--- NOTE | 2018-12-21 15:57 | HC ---
[facility] [place] [address] CONSULTATION Name: ELAINE RAMIREZ Room #: 236-P [facility] IN M.R.#: [id number] Admission: 12/20/18 Attend Phys: Sarbjit Burton MD Discharge: Date of : 59 Report #: [id number] THIS REPORT FOR: //name// CC: Brent Burton DATE OF SERVICE: 12/20/2018 INFECTIOUS DISEASE CONSULTATION REASON FOR CONSULTATION: I was asked to evaluate concerning septic shock. HISTORY OF PRESENT ILLNESS: The patient was a 61-year-old with underlying history of COPD, coronary artery disease, diastolic heart failure, who was recently hospitalized at [facility] last month with COPD exacerbation and pneumonia, discharged first part of December. She finished a course of Levaquin. Presents now with decreased mental status, confusion and delirium with hypotension, hypothermia and leukocytosis. Brought in through the Emergency Room, found to be hypotensive that did not respond to IV fluids, placed in Intensive Care Unit, now on low dose vasopressors. The patient is confused. She is alert, delirious and unable to give any reasonable history. She was cooperative, however. Denied any headache. No nausea or vomiting. No diarrhea. She had a 10 liter diuresis, according to nursing staff, following her initial presentation. This has since slowed down. REVIEW OF SYSTEMS: A 10-point review of systems was unable to be obtained from the patient. Did discuss issues with nursing staff. ALLERGIES: None. MEDICATIONS: As noted on her MAR, which were reviewed including insulin, albuterol, ipratropium inhaler, guaifenesin, loratadine, acetazolamide, MiraLax, Tylenol, Lipitor, Zestril, Neurontin, multivitamin, Flonase, OxyContin, Benadryl, Wellbutrin, Eliquis, Ativan, Lasix, Voltaren and Synthroid. Was given ceftriaxone in the Emergency Room and added vancomycin, meropenem and fluconazole. PAST MEDICAL HISTORY: COPD, obstructive sleep apnea, coronary artery disease, [place], leg varicosities, hypertension, diabetes, obesity, osteoarthritis, hyperlipidemia, chronic pain, DVT, PE, IVC filter, hypothyroidism, peripheral vascular disease, chronic kidney disease, diastolic heart failure, chronic lymphedema of lower extremities and venous stasis ulcers. FAMILY HISTORY: Noncontributory. SOCIAL HISTORY: Smoker of cigarettes. No significant alcohol intake. Has been [address] [address] CONSULTATION Name: ELAINE RAMIREZ Room #: 236-P [facility] IN [facility].#: [id number] Admission: 12/20/18 Attend Phys: Sarbjit Burton MD Discharge: Date of : 59 Report #: [id number] residing [place]. PHYSICAL EXAMINATION: VITAL SIGNS: Initially, she was hypothermic with temperature of 34 degrees. Now, she is 99 degrees with pulse 105, respiratory rate 16 on 5 liters of oxygen, blood pressure 120/72 on Levophed 2 mcg. SKIN: With yeast dermatitis in her skin folds and perineum. No other decubiti. No palpable adenopathy. GENERAL: She was obese. She was cooperative, although confused. EYES: Without scleral icterus. MOUTH: Without mucositis. NECK: Supple. LUNGS: Clear. HEART: Regular, without murmur. ABDOMEN: Soft and nontender with no hepatosplenomegaly or mass appreciated. She was obese. GENITOURINARY: External genitalia unremarkable with indwelling Wheeler catheter. EXTREMITIES: With right upper extremity PICC just placed. She has pretibial venous stasis wounds, which were relatively clean. No purulent drainage. No surrounding cellulitis, although she had some venous stasis dermatitis change. NEUROLOGIC: Cranial nerves intact. Able to move all extremities. Strength was symmetric. Sensation intact. Mood delirious. BACK: Nontender. No CVA tenderness. LABORATORY STUDIES: Sodium 138, potassium 3.4, bicarbonate 40, creatinine 0.8. Liver function test normal. Hemoglobin 12.7, white count 12.5, platelet count 192,000. Urinalysis unremarkable. Chest x-ray, cardiomegaly with no acute infiltrates. CT of head negative. CT of chest, abdomen and pelvis, no acute infiltrates or evidence of abscess. Blood cultures are negative thus far. IMPRESSION: A 62-year-old with: 1. Septic shock, source yet to be defined. 2. Delirium due to the above. 3. Hypothermia. 4. Venous stasis wounds, right lower extremity. 5. Intertrigo. 6. Chronic obstructive pulmonary disease. 7. Congestive heart failure. RECOMMENDATIONS: We will continue broad antibiotic coverage pending culture results. She recently completed course of IV followed by oral antibiotics [address] [address] CONSULTATION Name: ELAINE RAMIREZ Room #: 236-P ADM IN M.R.#: [id number] Admission: 12/20/18 Attend Phys: Sarbjit Burton MD Discharge: Date of : 59 Report #: [id number] during her last hospital stay. She will require full ICU support and sepsis care. I have discussed with nursing in attendance the plan of care. <ELECTRONICALLY SIGNED> By: Aroldo Alston MD 12/21/18 1557 [id number] Aroldo Alston MD /nt
[2018-12-22] VITALS (16 sets, daily range): BP systolic 108–166; BP diastolic 60–99
--- NOTE | 2018-12-22 02:45 | NUR ---
PATIENT IS PROGRESSING SLOWLY IN HER CARE PLAN. VITAL SIGNS STABLE WITH PATIENT HAVING COMPLAINTS OF PAIN AND NAUSEA WHICH WERE TREATED EFFECTIVELY WITH MEDICATIONS AND NON PHARMACOLOGICAL INTERVENTION. PATIENT MOSTLY ORIENTED BUT SCATTERED AND MANIC IN SPEAKING AND DISPLAYING FLIGHT OF IDEAS. BREATHING STABLE ON OXYGEN EVIDENCED BY ASSESSMENT AND CONTINUOUS SATURATION MONITOR. BLOOD PRESSURE HAS BEEN GOOD WITH MAP MOSTLY IN LOW 90'S. SNACKS PROVIDED FOR NUTRITION WITH PATIENT REQUESTING JUICES AND HOT TEA. WOUND DRESSINGS CLEAN, DRY AND INTACT. PATIENT IS ABLE TO REPOSITION SELF IN BED ADEQUATELY AND HAS BEEN UP TO BEDSIDE COMMODE FREQUENTLY WITH ASSISTANCE INCIDENT FREE. PATIENT HAS STATED CONSTIPATION AND FLATUS HAS BEEN NOTED. CONTINUE PLAN OF CARE.
[2018-12-22 04:02] LABS: CALCIUM 8.8 mg/dL (8.5-10.1); CREATININE 0.6 mg/dL (0.6-1.0); POTASSIUM 3.7 mmol/L (3.5-5.1)
[2018-12-22 04:04] LABS: HEMATOCRIT 40.2 % (37.0-47.0); HEMOGLOBIN 12.8 gm/dL (12.0-15.0); MCH 30.9 pg (26.0-34.0); MCHC 31.8 g/dL (28.0-37.0); MCV 97.2 fL (80.0-100.0); RBC 4.13 mil/uL (4.20-5.00); RDW 16.1 % (10.5-14.5); WBC 9.2 thou/uL (4.0-11.0)
--- NOTE | 2018-12-22 14:17 | NUR ---
PT IS A&0X4, NONSTOP TALKATIVE, SMOKER'S ROUGH COUGH, ICU NURSE BROUGHT OVER PT'S CIGGS, TWO PACKS, WILL PLACE IN MED ROOM W/HER PT ENVIRONMENTAL HEALTH AND SAFETY INTERN THEM. SHE APPEARS IN GOOD SPIRITS. GOT HER A TABLET AND TWO PENS FOR HER HABIT OF WRITING FREQUENTLY. HAS INTERDRY UNDER BREASTS, WOUNDS RLE, ICU NURSE TOOK CARE OF WOUNDS THIS A.M., SHE STATES DISAPPOINTMENT IN HAVING TO CALL US FOR AMBULATION YET WEAK, AND WAS STRONGLY DIRECTED TO CALL FOR NEEDS, EVEN IF SHE HAD A MESS NO ONE WOULD BE UPSET WITH HER YET IT'S ALL ABOUT SAFETY. ENCOURAGED HER TO CALL FOR ANY NEEDS. PAIN IS IN THE BACK OF HER LOWER LEGS. DENIED NEED FOR HYDROCODONE AT THIS TIME. WILL CONTINUE TO MONITOR.
[2018-12-23 04:45] VITALS: BP 139/79
--- NOTE | 2018-12-23 05:32 | NUR ---
pt assist x1 frequently to bsc, r upper midline infusing, prn pain med given, remains a&o x3 with some scattered conversation / manic with a flight of ideas, remains in isolation with hx of mrsa in nares, will con't to monitor per ppoc.
[2018-12-23 08:22] VITALS: BP 110/66
[2018-12-23 11:39] VITALS: BP 141/67
--- NOTE | 2018-12-23 17:23 | NUR ---
ASSUMED CARE AT SHIFT CHANGE, ALERT AND ORIENTED AND FORGETFUL. VS AND BG ARE STABLE. PATIENT ON THE ALL LIGHT ALL THROUGH OUT THE DAY, SHE STATES THAT SHE FORGETFUL AND NEEDS TEA/HONEY/LEMAON, AND SHE CALLED DIETRY SEVERAL TIMES. DRESSING TO RT LOWER LEG WAS DONE IN THE AM. PLEASE CHECK PATIENT BIN FOR LLE. AND WILL CONTINUE WITH POC.
[2018-12-23 19:39] VITALS: BP 106/57
[2018-12-24 03:23] VITALS: BP 129/61
--- NOTE | 2018-12-24 07:04 | NUR ---
PT SLEEPING ON AND OFF THRU THE NOC, VSS, PRN PAIN MED GIVEN AT HS, CON'T TO MONITOR PER PPOC.
[2018-12-24 08:00] VITALS: BP 116/51
[2018-12-24 12:00] VITALS: BP 114/41
[2018-12-24 16:00] VITALS: BP 104/84
--- NOTE | 2018-12-24 17:18 | NUR ---
ASSUMED CARE AT SHIFT CHANGE, SLEEPING ON AND OFF THROUGH THE SHIFT. VS AND BG STABLE. DRESSING RT LE DONE. PROGRESSING SLOWELY TOWARDS GOALS. AND WILL CONTINUE WITH POC.
[2018-12-24 20:24] VITALS: BP 139/72
--- NOTE | 2018-12-25 02:57 | NUR ---
ASSESSMENT DOCUMENTED.PT BEEN RESTING IN NO ACUTE DISTRESS.A/OX3.VSS.UP WITH ASSITS X1 W/WALKER.AMBULATES TO BR.PAIN MEDS GIVEN FOR JACKIE LES PAIN W/RELIEF.PT DENIES ANY OTHER NEEDS AT THIS TIME.POSSIBLE DISCHARGE TODAY.WILL CONT TO MONITOR PER POC.
[2018-12-25 05:02] VITALS: BP 163/81
[2018-12-25 08:00] VITALS: BP 149/92
--- NOTE | 2018-12-25 08:58 | NUR ---
PT IS A&0X3, AMB CLOSE SBA, TALKS INCESSANTLY PER DX, SWEET SPIRITS, USES CALL LIGHT FREQ FOR NEEDS. SEE INTERVENTIONS FOR ASSESSMENTS, CARDIAC MONITORED SR/ST, HAS FEMALE EXT CATHETER TO HELP W/SKIN ISSUES/INTERDRIGO BETWEEN LEGS, BED ALARM ON, 02 ON 3L, SBP 140S LOWER THAN USUAL 160S. WILL CONTINUE TO MONITOR
[2018-12-25] MEDS ORDERED: DOXYCYCLINE HYC50 MG PO (10:24)
[2018-12-25 12:00] VITALS: BP 110/59
--- NOTE | 2018-12-25 12:09 | NUR ---
PT DISCHARGING TODAY BACK TO [facility] FAXED DC ORDERS/SUMMARY TO FACILITY SPOKE WITH WENDI IN ADM SHE RECEIVED DC ORDERS AND ARRANGED TRANSPORT BY AN AND 3L 02 FOR [id number]. PT HAS FACILITY REP AUTHORIZED CONTACT NO FAMILY TO NOTIFY.UNIT NOTIFIED AND CHART COPY PER US. RN TO CALL REPORT TO [phone].
--- NOTE | 2018-12-25 12:36 | NUR ---
DISCHARGE: SPOKE WITH BLOSSOM AT [facility] TO GIVE REPORT. MIDLINE AND TELE WILL BE REMOVED WELL WOUND PICS TAKEN PRIOR TO PT'S D/C
--- NOTE | 2018-12-25 13:43 | NUR ---
patient to dc return to [facility] lt. She is her own responsible spokesperson she has elfego noted. Updated patient on dc and timeframe [id number] wc van transport. patient is agreeable to dc.
== END 2018-12-25 14:41 | DRG 871 ==
LOC: ER 09:32 → EROBS 13:34 → ICU 13:34 → 2N 12-22 14:26
PROVIDERS: Emergency Medicine Emergency Medical Services; ADMIT Hospitalist
PROC: 05HY33Z Insertion of Infusion Device into Upper Vein, Percutaneous Approach (ICD-10-PCS; principal; 2018-12-20)
DX: A41.9 Sepsis, unspecified organism (principal); R65.21 Severe sepsis with septic shock; J96.21 Acute and chronic respiratory failure with hypoxia; J96.22 Acute and chronic respiratory failure with hypercapnia; G93.41 Metabolic encephalopathy; I50.32 Chronic diastolic (congestive) heart failure; I13.0 Hypertensive heart and chronic kidney disease with heart failure and stage 1 through stage 4 chronic kidney disease, or unspecified chronic kidney disease; E87.1 Hypo-osmolality and hyponatremia; L03.115 Cellulitis of right lower limb; E44.1 Mild protein-calorie malnutrition; L97.919 Non-pressure chronic ulcer of unspecified part of right lower leg with unspecified severity; Z68.42 Body mass index [BMI] 45.0-49.9, adult; J44.9 Chronic obstructive pulmonary disease, unspecified; G47.33 Obstructive sleep apnea (adult) (pediatric); I25.10 Atherosclerotic heart disease of native coronary artery without angina pectoris; M17.0 Bilateral primary osteoarthritis of knee; E78.5 Hyperlipidemia, unspecified; E03.9 Hypothyroidism, unspecified; E11.51 Type 2 diabetes mellitus with diabetic peripheral angiopathy without gangrene; E11.22 Type 2 diabetes mellitus with diabetic chronic kidney disease; N18.3 Chronic kidney disease, stage 3 (moderate); F17.210 Nicotine dependence, cigarettes, uncomplicated; I95.9 Hypotension, unspecified; R33.9 Retention of urine, unspecified; I87.8 Other specified disorders of veins; E87.6 Hypokalemia; E66.01 Morbid (severe) obesity due to excess calories; G89.4 Chronic pain syndrome; R41.0 Disorientation, unspecified; T68.XXXA Hypothermia, initial encounter; I87.2 Venous insufficiency (chronic) (peripheral); E11.622 Type 2 diabetes mellitus with other skin ulcer; I25.2 Old myocardial infarction; Z86.718 Personal history of other venous thrombosis and embolism; Z86.711 Personal history of pulmonary embolism; Z79.4 Long term (current) use of insulin; Z79.899 Other long term (current) drug therapy; Z87.01 Personal history of pneumonia (recurrent); Z79.01 Long term (current) use of anticoagulants
CPT/HCPCS: 10078; 10081; 27000

== ENCOUNTER 2019-01-05 10:12 | Inpatient (IN) | payer OTHER ==
[~2019-01-05] VITALS: Ht 167.6 cm; Wt 140.1 kg
[2019-01-05] VITALS (44 sets, daily range): BP systolic 77–126; BP diastolic 35–69
[~2019-01-05 10:12] MED LIST changes: +DOXYCYCLINE HYC50 MG PO
[2019-01-05] MEDS ORDERED: VITCB500GO PO (10:23)
[2019-01-05 10:35] LABS: HEMATOCRIT 40.7 % (37.0-47.0); HEMOGLOBIN 12.7 gm/dL (12.0-15.0); MCH 30.5 pg (26.0-34.0); MCHC 31.1 g/dL (28.0-37.0); PLATELET COUNT 170 thou/uL (150-400); RBC 4.15 mil/uL (4.20-5.00); RDW 15.9 % (10.5-14.5); WBC 21.9 thou/uL (4.0-11.0)
[2019-01-05 10:44] LABS: CALCIUM 8.6 mg/dL (8.5-10.1); CREATININE 1.1 mg/dL (0.6-1.0); POTASSIUM 4.1 mmol/L (3.5-5.1)
[2019-01-05 10:44] LABS: URINE BILIRUBIN NEGATIVE (Negative); URINE BLOOD NEGATIVE (Negative); URINE CLARITY CLEAR; URINE COLOR YELLOW; URINE GLUCOSE-RANDOM* NEGATIVE (Negative); URINE KETONES TRACE (Negative); URINE LEUKOCYTES-REFLEX NEGATIVE (Negative); URINE NITRITE-REFLEX NEGATIVE (Negative); URINE PROTEIN (DIPSTICK) TRACE (Negative); URINE SPECIFIC GRAVITY 1.025 (1.005-1.035); URINE UROBILINOGEN 0.2 E.U./dl (0.2-1.0)
[2019-01-05 10:50] LABS: ALBUMIN 2.4 g/dL (3.4-5.0); DIRECT BILIRUBIN 0.1 mg/dL (<0.1-0.3); TOTAL BILIRUBIN 0.3 mg/dL (<0.1-1.0); TOTAL PROTEIN 5.9 g/dL (6.4-8.2)
[2019-01-05 10:55] LABS: AMP/METHAMP Negative (Negative); BARBITURATES Negative (Negative); BENZODIAZEPINES Negative (Negative); COCAINE Negative (Negative); METHADONE Negative (Negative); OPIATES POSITIVE (Negative); PCP Negative (Negative)
[2019-01-05 10:58] LABS: ABSOLUTE NEUTROPHILS 19.5 thou/uL (1.4-8.2); ANISOCYTOSIS 1+
[2019-01-05 10:59] LABS: POLYCHROMASIA OCCASIONAL
[2019-01-05 11:00] LABS: HCO3 30.5 mmol/L (22.0-26.0); PCO2 74.2 mmHg (35.0-45.0); PO2 80.4 mmHg (80.0-100.0); pH 7.232 (7.360-7.450); sO2 93.2 % (92.0-98.0)
--- NOTE | 2019-01-05 13:06 | NUR ---
CONSULTED TO PLACE A LINE FOR A PATIENT ADMITTING WITH RR DISTRESS. PATIENT IS LETHARGIC AND UNABLE TO FOLLOW DIRECTION. MEDICAL NECESSITY SIGNED BY THIS PATIENT IS UNSTABLE AND NEEDS LEVOPHED STARTED TO MAITAIN ADEQUATE BLOOD PRESSURE WELL MULTIPLE IV MEDICATIONS. THE RIGHT IJ JUGULAR WAS WIDLEY PATENT. A #6F TRIPLE LUMEN CENTRAL LINE WAS PLACED PER HOSPITAL POLICY AFTER A BEDSIDE TIMEOUT WAS COMPLETED IN THE ER. CENTRAL LINE LENGTH IS 25CM AND ADVANCED TO 18CM WITH BRISK BLOOD RETURN. A STAT CHEST XRAY CONFIRMED LINE WAS IN ADEQUATE POSITION FOR USE IN THE SVC. BUSINESS ADMINISTRATION PROFESSOR NOTIFIED LINE IS RELEASED FOR USE
--- NOTE | 2019-01-05 13:22 | NUR ---
PT IS A FULL CODE PER JT (NURSE) AT [facility]
[2019-01-05 13:27] LABS: APTT 31.4 Seconds (24.5-32.8); INR 1.1; PROTIME 11.9 Seconds (9.3-11.4)
[2019-01-05 13:59] LABS: BE(vivo) -0.4 mmol/L (-2 to +3); HCO3 28.8 mmol/L (22.0-26.0); PO2 59.6 mmHg (80.0-100.0); sO2 85.1 % (92.0-98.0)
[2019-01-05 14:01] LABS: pH 7.232 (7.360-7.450)
--- NOTE | 2019-01-05 16:37 | NUR ---
PATIENT ADMITTED TO ICU ROOM 246 PER CART FROM THE ED AFTER CT SCAN AT 1310 CENTRAL LINE IN RIJ NOTED AND LEVOPHED TITRATED TO KEEP MEAN ARTERIAL PRESSURE 65. PATIENT ALERT AND ORIENTED. ATTACHED TO GAS ROLLER OPERATOR, BP AND PULSE OX MONITORED. REMAINS ON BIPAP. DR WANG AT BEDSIDE TO EXAMINE PATIENT.
--- NOTE | 2019-01-05 20:53 | NUR ---
PATIENT PROGRESSING LACTIC ACID LEVEL IS LESS THAN 2. REMAINS ON LEVOPHED DRIP. MORE ALERT AND RESPONSIVE. RT LOWER LEG REDRESSED WITH XEROFOAM GAUZE, ABD AND WRAPPED WITH GAUZE AFTER CLEANING WITH SALINE. PATIENT UPDATED TO THE POC AND REASSURANCE GIVEN.
[2019-01-06] VITALS (33 sets, daily range): BP systolic 89–126; BP diastolic 52–81
--- NOTE | 2019-01-06 05:24 | HC ---
[facility] [place] [address] CONSULTATION Name: ELAINE RAMIREZ Room #: [facility]- ADM IN M.R.#: [id number] Admission: 01/05/19 Attend Phys: Diego Jimenez MD Discharge: Date of : 59 Report #: [id number] THIS REPORT FOR: //name// CC: Brent Jimenez DATE OF SERVICE: 01/05/2019 INFECTIOUS DISEASE CONSULTATION ATTENDING PHYSICIAN: Dr. Jimenez. REASON FOR EVALUATION: Septic shock, acute on chronic respiratory failure. HISTORY OF PRESENT ILLNESS: Chart reviewed, patient examined. This is a 63-year-old white female with extensive medical history, has known underlying COPD, oxygen requiring at 3 liters at baseline, who is a resident of a facility. Of note, she had a recent admission for pneumonitis, completed course of antimicrobial therapy. This is her third admission in the last 30-45 days. She reportedly had progressive alteration, rapid pace of her mental status, actually immediately sent her saturations to be borderline low at 89%. She is more lucid at this point, she is wearing positive pressure mask. She states she has had a recent cough productive of brownish sputum. She does admit to fevers, chills, shakes and sweats. She has had a reasonably good appetite, denied significant gastrointestinal-related complaints. In the Emergency Room, urinalysis was otherwise unremarkable. Chest x-ray showed possible consolidation and collapse of left lower lobe. Procalcitonin was elevated at 28.6 and a temperature elevation to 100.2 axillary with some hemodynamic instability with hypotension, systolics in the 70s-80s. She was resuscitated with some fluid. At this point, she is generally lucid. She is requesting to eat. She was started empirically on antimicrobials with levofloxacin as well as piperacillin and tazobactam and vancomycin. Review of previous cultures were otherwise unrevealing for last several months. ALLERGIES: None. MEDICATIONS: Include levothyroxine, vancomycin, guaifenesin, lactobacillus, apixaban, gabapentin, atorvastatin, levofloxacin, Zosyn, ipratropium and albuterol inhalers. She is on some norepinephrine as well. PAST MEDICAL HISTORY: As described above, O2 requiring COPD 3-4 liters per nasal cannula; obstructive sleep apnea; has known vasculopathy, coronary artery disease, acute myocardial infarction, venous stasis insufficiency with lower extremity ulcers, hypertension, diabetes mellitus type 2, osteoarthritis, hyperlipidemia, chronic lower extremity edema with lymphedema, obesity, [place] [address] CONSULTATION Name: ELAINE RAMIREZ Room #: [facility] IN M.R.#: [id number] Admission: 01/05/19 Attend Phys: Diego Jimenez MD Discharge: Date of : 59 Report #: [id number] SOCIAL HISTORY: Smokes cigarettes. No illicit drug use. No ethanol use. FAMILY HISTORY: Noncontributory. REVIEW OF SYSTEMS: Otherwise, unremarkable 10-point review of systems except noted above. PHYSICAL EXAMINATION: GENERAL: She is alert, generally lucid and answers appropriate. She is in moderate distress. She is wearing positive pressure mask to deliver oxygen, appears chronically ill. VITAL SIGNS: Temperature max 100.2, pulse 112, respirations 26, blood pressure is 94/64, saturation is 93%. SKIN: Warm, dry. HEENT: Neck is supple. Extraocular muscles intact. Normocephalic. LUNGS: Diminished overall, few scattered coarse breath sounds at the bases. HEART: Tachycardic, regular. ABDOMEN: Soft, nontender. She is obese. GENITOURINARY: Deferred. RECTAL: Deferred. LABORATORY DATA: Urinalysis described above. Electrolytes: Sodium 142, potassium 4.1, chloride 105, bicarbonate is 32, anion gap of 5, BUN and creatinine 18 and 1.1. LFTs unremarkable. Albumin 2.4, total protein 5.9, estimated GFR of 50. Drug screen was positive for opiates. CBC: White count 21.9, H and H 12.7 and 40.7, platelets of 170. ABGs: pH 7.232, pCO2 of 74.2, pO2 of 88.4 and that was on nonrebreather. Chest x-ray as described above. PT 11.9, INR 1.1. Fibrinogen elevated at 458. ASSESSMENT: Septic shock, likely is a complication of lower respiratory tract infection with pneumonitis, concomitant leukocytosis. It is reasonable to continue broad-spectrum antimicrobial therapy. This is her third admission; reasonably assume that may well be multiple resistant organism repeating which she deteriorated. I think certainly suggests lack of reserve overall. Continue pressor support as required. We will await results. Monitor expectantly. <ELECTRONICALLY SIGNED> By: Eric Mcclellan MD 01/06/19 0524 [id number] Eric Mcclellan MD /nt
--- NOTE | 2019-01-06 06:00 | NUR ---
PT AWAKE AND ALERT. TALKIMG ALOT. ON BIPAP ALL NIGHT. NOW ON 3 L NC LUNGS DIMINISHED. EXCELLENT PRODUCTIVE COUGH. 800 CC UO THIUS SHIFT. COMPLETE BATH GIVEN.. FEBRILE EARLIER AT 101.7 AX NOW 98.6 AXOI WILL CONBT TO MONITOR
[2019-01-06 06:23] LABS: HEMATOCRIT 37.2 % (37.0-47.0); HEMOGLOBIN 11.6 gm/dL (12.0-15.0); MCH 30.4 pg (26.0-34.0); MCHC 31.1 g/dL (28.0-37.0); MCV 97.6 fL (80.0-100.0); RBC 3.81 mil/uL (4.20-5.00); RDW 16.2 % (10.5-14.5); WBC 24.1 thou/uL (4.0-11.0)
[2019-01-06 06:34] LABS: CALCIUM 8.2 mg/dL (8.5-10.1); CREATININE 0.7 mg/dL (0.6-1.0); MAGNESIUM 1.9 mg/dL (1.8-2.4); POTASSIUM 3.8 mmol/L (3.5-5.1)
--- NOTE | 2019-01-06 09:00 | NUR ---
RIGHT LOWER WOUND CLEANED AND REDRESSED WITH SALINE AND XEROFOAM PRET GAUZE APPLIED. ABD APPLIED AND WRAPPED WITH GAUZE. LEG ELEVATED FOR PATIENT COMFORT.
--- NOTE | 2019-01-06 13:24 | EKG ---
[address] [address] ELECTROCARDIOGRAM REPORT Name: ELAINE RAMIREZ Room #: 246-P ADM IN M.R.#: [id number] Admission: 01/05/19 Attend Phys: Diego Jimenez MD Discharge: Date of : 59 Report #: [id number] THIS REPORT FOR: //name// [facility] ED Test Date: 2019-01-05 Test Time: 10:17:03 Pat Name: ELAINE RAMIREZ Department: Room: 246 Gender: F Area Mechanic: ALPESH : 1955 Requested By: Jhoana Wong Order Number: [id number] MD: Randal Ding Measurements Intervals [place] Rate: 120 P: 70 VA: 157 QRS: 85 QRSD: 131 T: 42 QT: 315 QTc: 445 Interpretive Statements Sinus tachycardia Right bundle branch block Rightward axis Baseline wander in lead(s) V3 Compared to ECG 11/30/2018 19:33:49 No significant change was found Electronically Signed On 01-06-2019 13:24:39 CDT by Randal Ding [email or web address] <ELECTRONICALLY SIGNED> By: Randal Ding MD, [facility] 01/06/19 1324 1017 1017 Randal Ding MD, [facility] /EPI
--- NOTE | 2019-01-06 18:04 | NUR ---
Patient remains on nasal cannula at 4 liters with O2 sats in the lower 90's. Weaned off Levophed this AM and BP stable. Patient very talkive. Patient transferred to 2N bed 207 per bed with 02 and belongings. Report given to charge nurse. Patient updated as to the POC and Reassurance given.
[2019-01-07 04:48] VITALS: BP 129/81
[2019-01-07 06:19] LABS: CALCIUM 9.1 mg/dL (8.5-10.1); CREATININE 0.7 mg/dL (0.6-1.0); POTASSIUM 4.5 mmol/L (3.5-5.1)
[2019-01-07 08:15] VITALS: BP 120/81
[2019-01-07 08:34] LABS: HEMATOCRIT 35.2 % (37.0-47.0); MCH 30.4 pg (26.0-34.0); MCHC 31.2 g/dL (28.0-37.0); MCV 97.4 fL (80.0-100.0); RBC 3.61 mil/uL (4.20-5.00); RDW 16.1 % (10.5-14.5); WBC 19.7 thou/uL (4.0-11.0)
--- NOTE | 2019-01-07 08:35 | NUR ---
ASSESSMENTS CHARTED, MEDS CHARTED GIVEN. PATIENT WAS AWAKE MOST OF THE NIGHT ALERT AND ORIENTED, BUT CONTINUING A MONOLOG ALL NIGHT. C/O PAIN IN BILATERAL LOWER EXTEMITIES 12/11. GOT ORDERS FOR NORCO FOR MODERATE TO SEVERE PAIN. ON 6 LITERS OXYGEN DURING SHIFT. PLAN IS TO CONTINUE TREATMENT FOR DVT, CELLULITIS, PNEUMONIA AND RESPIRATORY FAILURE. FALL PRECAUTIONS IN PLACE.
[2019-01-07 08:41] LABS: MAGNESIUM 2.1 mg/dL (1.8-2.4)
--- NOTE | 2019-01-07 09:36 | NUR ---
WOUND CONSULT; THE WOUND TODAY IS STABLE. NO DRAINAGE SEEN. THE WOUND BEDS ARE YELLOWISH STAINED FROM XEROFORM. NO INFECTION S/S. THE PATIENT IS MILDLY CONFUSED. RECOMMENDATIONS; APPLY THERAHONEY TO WOUND BEDS, CHANGE M/W/F/ PRN DISCUSSED WITH STAFF
--- NOTE | 2019-01-07 10:37 | NUR ---
met with patient she recently dc from [facility] to [facility] were she is ltc. She makes her decisions. Patient A/Ox4. [facility] She is reports plan return. She reports f/u with Pulmonary 01/11. Plan return to facility once stable.
[2019-01-07 12:45] VITALS: BP 111/69
--- NOTE | 2019-01-07 13:18 | NUR ---
FAXED CLINICAL UPDATE TO [facility] SPOKE WITH WENDI IN ADM SHE RECEIVED UPDATE. DP TO FOLLOW.
--- NOTE | 2019-01-07 14:18 | NUR ---
Nutrition: Received consult related to chronic venous stasis wound right leg. Admit with sepsis related to HCAP, AMS. Hx DM, COPD, AL. Class 3 extreme obesity with BMI 47.5. Current weight down ~50# from weight 5 weeks ago. Pt reports her weights typically fluctuate with fluid but intake has been good, 100% of meals. Protein needs/sources reviewed. Pt voiced understanding. BG 95-142. Previously on heart healthy, carb controlled. Now only on heart healthy. Follow BG trends for need to add carb controlled back to diet order. Pt voiced no questions for RD. No supplements suggested at present. Low risk.
--- NOTE | 2019-01-07 15:30 | NUR ---
WOUND CARE CONSULT; ROUNDING WITH DR FORD. WOUND WAS ASSESSED AND FOUND APPROPRIATE AND OK TO EMIL POND. NOTHING FOLLOWS
--- NOTE | 2019-01-07 15:43 | NUR ---
ASSESSMENT CHARTED. PT ALERT AND ORIENTED. VSS. APPETITE GOOD. UP IN THE CHAIR THIS SHIFT. CONTACT ISOLATION MAINTAINED. SEEN BY WOUND CARE. IV ABX GIVEN ORDERED. NO CONCERNS AT THIS TIME. WILL CONTINUE TO MONITOR.
[2019-01-07 20:07] VITALS: BP 137/87
--- NOTE | 2019-01-08 04:46 | NUR ---
AT 0100 PT FOUND TO BE INCON'T OF STOOL, AND R IJ PULLED OUT, PT SATS 87%, PT CLEANED AND LINEN CHANGEND, O2 INCREASED TO 9L/HF WITH SAT 90%, RT CALLED TX PROVIDED, NEW IV STARTED IN R CHEST, BIPAP RESTARTED WITH SATS 89 TO 91%, NO C/O PAIN, PT RESTING COMFORTABLY, REMAINS NPO FOR BRONCH THIS AM, RADIOLGY XRAY DONE, LABS DRAWN, ZAIDI CON'T TO DRAIN LIGHT YELLOW URINE, WILL CON'T TO MONITOR PER PPOC.
[2019-01-08 05:01] VITALS: BP 133/81
[2019-01-08 05:08] LABS: HEMATOCRIT 39.5 % (37.0-47.0); MCH 30.3 pg (26.0-34.0); MCHC 30.5 g/dL (28.0-37.0); MCV 99.5 fL (80.0-100.0); RBC 3.97 mil/uL (4.20-5.00); RDW 16.6 % (10.5-14.5); WBC 15.8 thou/uL (4.0-11.0)
[2019-01-08 05:24] LABS: CALCIUM 9.2 mg/dL (8.5-10.1); CREATININE 0.5 mg/dL (0.6-1.0); POTASSIUM 4.9 mmol/L (3.5-5.1)
[2019-01-08 08:56] VITALS: BP 150/90
[2019-01-08 14:00] VITALS: BP 149/77
[2019-01-08 17:25] VITALS: BP 135/74
--- NOTE | 2019-01-08 17:56 | HC ---
[facility] [place] [address] CONSULTATION Name: ELAINE RAMIREZ Room #: 207-P [facility] IN M.R.#: [id number] Admission: 01/05/19 Attend Phys: Diego Jimenez MD Discharge: Date of : 59 Report #: [id number] THIS REPORT FOR: //name// CC: Brent Jimenez DATE OF SERVICE: 01/07/2019 CHIEF COMPLAINT: Right leg ulcerations. HISTORY OF PRESENT ILLNESS: This is a 63-year-old female patient who is admitted to the hospital with respiratory issues. The patient was also noted to have ulcerations on her right leg and I have been asked to see her with regard to this. I saw her in the hospital not too long ago. She has chronic venous ulcers in the right lower extremity and a recent history of cellulitis. PAST MEDICAL HISTORY: Positive for morbid obesity, type 2 diabetes mellitus, congestive heart failure, chronic kidney disease, tobacco abuse, mild protein-calorie malnutrition. ALLERGIES: None. MEDICATIONS: Include Tylenol, acetylcysteine, ipratropium, albuterol, Eliquis, Lipitor, Wellbutrin, dextrose, fluticasone, gabapentin, vancomycin. SOCIAL HISTORY: Positive tobacco use. FAMILY HISTORY: Noncontributory. REVIEW OF SYSTEMS: CONSTITUTIONAL: The patient denies fever, chills or weight loss. NEUROLOGICAL: The patient denies focal weakness, numbness or tingling. EYES: The patient denies visual changes, redness or drainage. ENT: The patient denies earache, nasal drainage or sore throat. CARDIOVASCULAR: The patient denies chest pain, palpitations or diaphoresis. PULMONARY: The patient denies cough or shortness of breath. GASTROINTESTINAL: The patient denies nausea, vomiting, diarrhea or abdominal pain. ORTHOPEDIC: The patient notes some pain and swelling and drainage from her right leg. Other systems in a 14-point review of systems are negative. PHYSICAL EXAMINATION: VITAL SIGNS: At this time include temperature 36.6, pulse 99, respiratory rate 20, blood pressure 111/69. GENERAL: This is a chronically ill-appearing female patient who appears to be [address] [address] CONSULTATION Name: ELAINE RAMIREZ Room #: 207-P ADM IN M.R.#: [id number] Admission: 01/05/19 Attend Phys: Diego Jimenez MD Discharge: Date of : 59 Report #: [id number] in minimal distress. HEENT: Head normocephalic. Nose and throat clear. LUNGS: Diminished. HEART: Regular rhythm. ABDOMEN: Bowel sounds present. EXTREMITIES: Exam of the lower extremities demonstrate 2+ edema bilaterally. There are several ulcerations to the right pretibial region. They are relatively clean. There is a mix of granulation and fibrin. They did not appear to be overtly infected at this time. CLINICAL IMPRESSION: 1. Respiratory failure. 2. Chronic venous stasis ulcer to the right lower extremity. 3. Recent cellulitis, right lower extremity. 4. Morbid obesity. 5. Type 2 diabetes mellitus. 6. Congestive heart failure. 7. Hypertension. 8. Chronic kidney disease. 9. Tobacco abuse. 10. Mild protein-calorie malnutrition, albumin 3.2. RECOMMENDATIONS: At this point in time, we will recommend topical TheraHoney to the open ulcerations. Recommend elevation of the lower extremities. Gentle compression with Kerlix and Thaddeus wraps. Elevation of the foot rest and foot of the bed would be helpful as well. I appreciate being asked to see her in consultation. <ELECTRONICALLY SIGNED> By: Shantanu Perdue MD 01/08/19 1756 1709 1226 Shantanu Perdue MD /nt
[2019-01-08 21:08] VITALS: BP 141/89
[2019-01-08 22:08] LABS: BE(vivo) 5.8 mmol/L (-2 to +3); HCO3 36.9 mmol/L (22.0-26.0); PO2 56.7 mmHg (80.0-100.0)
[2019-01-08 22:10] LABS: pH 7.205 (7.360-7.450)
[2019-01-08 22:11] LABS: PCO2 95.4 mmHg (35.0-45.0)
[2019-01-08 23:00] VITALS: BP 131/86
[2019-01-09] VITALS (24 sets, daily range): BP systolic 114–162; BP diastolic 64–92
--- NOTE | 2019-01-09 00:19 | NUR ---
ASSUMED PT CARE AT 1900. PT A/O TO SELF, , OCCASIONALLY TO PLACE. CONFUSED SOMETIMES AND FORGETFUL. VITAL SIGNS STABLE. ASSESSMENT CHARTED. HAD SOME TROUBLE KEEPING O2 SAT ABOVE 90% DESPITE PT BEING ON 10L HIGH FLOW. PT SEEMED TO BE IN DISTRESS WELL. ABG AND CHEST XRAY ORDERED. REFER TO CHART FOR RESULTS. PT TRANSFERED TO ICU AT ABOUT 2245. PT STABLE ON TRANSFER.
[2019-01-09 00:26] LABS: BE(vivo) 3.4 mmol/L (-2 to +3); HCO3 34.4 mmol/L (22.0-26.0); sO2 88.9 % (92.0-98.0)
[2019-01-09 00:27] LABS: pH 7.186 (7.360-7.450)
[2019-01-09 06:11] LABS: HEMATOCRIT 37.1 % (37.0-47.0); HEMOGLOBIN 11.5 gm/dL (12.0-15.0); MCH 30.8 pg (26.0-34.0); MCHC 30.9 g/dL (28.0-37.0); MCV 99.6 fL (80.0-100.0); RBC 3.72 mil/uL (4.20-5.00); RDW 16.3 % (10.5-14.5); WBC 9.8 thou/uL (4.0-11.0)
[2019-01-09 06:33] LABS: CALCIUM 8.7 mg/dL (8.5-10.1); CREATININE 0.6 mg/dL (0.6-1.0); MAGNESIUM 1.9 mg/dL (1.8-2.4); POTASSIUM 5.4 mmol/L (3.5-5.1)
--- NOTE | 2019-01-09 07:00 | NUR ---
Pt received into room 244 last pm, made comfortable in bed and monitor applied. See rhythm strip. ABG results called to Dr. Lagos and orders received. Pt tolerated BiPap all night with adequate SpO2 and VS stable. PRN hydrocodones given for generalized discomfort with desired effect achieved. Am lab results noted, continue with POC.
--- NOTE | 2019-01-09 07:46 | NUR ---
Pt TRANSFERRED TO ICU. WILL PLACE ON HOLD AND AWAIT NEW ORDERS TO RESUME WHEN APPROPRIATE
--- NOTE | 2019-01-09 08:00 | NUR ---
Pt desating immediately with removal of AVAPS. Able to give small sip water and oral care but then needing to go immediately back on mask.
--- NOTE | 2019-01-09 09:00 | NUR ---
Able to remove AVAPS mask to give AM meds but pt not tolerating for longer than 2-3 minutes d/t desat.
[2019-01-09 12:21] LABS: BE(vivo) 6.6 mmol/L (-2 to +3); HCO3 35.6 mmol/L (22.0-26.0); PO2 62.2 mmHg (80.0-100.0); sO2 88.3 % (92.0-98.0)
[2019-01-09 12:22] LABS: pH 7.294 (7.360-7.450)
--- NOTE | 2019-01-09 12:25 | NUR ---
ABG and portable chest obtained. Dr. WANG to review. ABG critical but much better. Will continue POC giving breaks from AVAPS as able.
--- NOTE | 2019-01-09 13:00 | NUR ---
AVAPS removed for oral care partial bath. Tolerated better. Desat after 5 minutes on O2 5L NC.
--- NOTE | 2019-01-09 14:48 | NUR ---
Discussed with Sarbjit RT what can be done to give pt break from AVAPS mask as bridge of nose sore and red. Will try patient on Optiflow. Titrated to 50% and 50L maintaining SaO2 > 90%.
--- NOTE | 2019-01-09 16:00 | NUR ---
Pt tolerating Optiflow well maintaining SaO2. Dr. Villalta on rounds, would like pt to be up to chair if tolerated. Pt assisted up to chair x 1 assist, tolerated well. Resp. tx per Sarbjit RT. Pt able to expectorate moderate amt thick beige to light yellow sputum.
--- NOTE | 2019-01-09 19:00 | NUR ---
Dr. Lagos on rounds. Pt remains up in chair. OK to advance diet as tolerated. BiPAP at [facility].
[2019-01-10] VITALS (21 sets, daily range): BP systolic 113–182; BP diastolic 67–110
[2019-01-10 06:15] LABS: HEMATOCRIT 43.3 % (37.0-47.0); HEMOGLOBIN 13.3 gm/dL (12.0-15.0); MCH 30.3 pg (26.0-34.0); MCHC 30.7 g/dL (28.0-37.0); MCV 98.8 fL (80.0-100.0); RBC 4.38 mil/uL (4.20-5.00); RDW 16.5 % (10.5-14.5); WBC 10.4 thou/uL (4.0-11.0)
[2019-01-10 06:19] LABS: CALCIUM 9.5 mg/dL (8.5-10.1); CREATININE 0.5 mg/dL (0.6-1.0); MAGNESIUM 2.1 mg/dL (1.8-2.4); POTASSIUM 4.8 mmol/L (3.5-5.1)
--- NOTE | 2019-01-10 07:25 | NUR ---
PT PROGRESSING TOWARDS GOALS.
[2019-01-10 09:58] LABS: ALBUMIN 2.6 g/dL (3.4-5.0); DIRECT BILIRUBIN < 0.1 mg/dL (<0.1-0.3); SGOT 21 U/L (15-37); SGPT 17 U/L (30-65); TOTAL BILIRUBIN 0.2 mg/dL (<0.1-1.0); TOTAL PROTEIN 6.8 g/dL (6.4-8.2)
--- NOTE | 2019-01-10 10:27 | NUR ---
CONSULTED TO PLACE A MIDLINE FOR A PATIENT NEEDING ADDITIONAL ACCESS. VERBAL CONSENT OBTAINED. THE RIGHT UPPER ARM BASILIC WAS WIDLEY PATENT. A #4F POWER INJECTABLE MIDLINE WAS PLACED PER HOSPITAL POLICY. MIDLINE WAS TRIMMED TO 16CM AND ADVANCED WITHOUT DIFFICULTY. BRISK BLOOD RETURN AND FLUSHED EASILY. LINE SECURED AND RELEASED FOR USE
--- NOTE | 2019-01-10 14:58 | NUR ---
FOLLOWIJNG FOR DC PLANNING. CLINICAL INFO REVIEWED. BIPAP FOR SLEEP AND NOW TOLERATING OPTIFLOW 55 LTER FLOW AND FIO2 55%. LEFT PNEUMONIA AND ATELECTASIS POST BRONCH A COUPLE DAYS AGO WITH NEED TO TRANSFER TO ICU LATER THAT DAY. DISCUSSED CASE WITH HOSPITALIST AND DR. WANG THIS AM. APPEARS LTAC APPRORPIATE. PER DR. WANG, NOT READY QUITE READY DUE TO PNA AND SIGNIFICANT ATELECTASIS. MET WITH PT AND DISCUSSED LTAC. PT HAS BEEN TO [facility]OTH [facility] AND [facility]. PT INDICATED SHE HAD GOOD CARE AT [facility]. CM REVIEWED LTAC OPTIONS AND PROVIDED A LIST WITH OPTIONS. PT AGREEABLE TO REFERRAL TO [facility] AND FAXED AND SPOKE WITH ADRYAN FROM [facility]. SHE WILL REVIEW REFERRAL AND NOTIFY CM IF CAN ACCEPT. REQUESTED DC JOURNEYMAN GLAZIER FAX UPDATE TO [facility] TODAY.
--- NOTE | 2019-01-10 15:56 | NUR ---
FAXED CLINICAL UPDATE TO [facility] SPOKE WITH WENDI IN ADM SHE RECEIVED UPDATE ALSO THAT PT MIGHT NEED LTAC PRIOR TO RETURNING BACK TO [facility].
--- NOTE | 2019-01-10 17:49 | NUR ---
Up in chair most of day. Oriented but very anxious. Pressured speech. Talking even when no one in room. Tolerating Optiflow 55/55. Chest XRAY showing some improvement on left. Secretions now thin yellow. Pt doing good job with pulmonary toilet and RT treatments to mobilize secretions. Tolerating diet, eating 100% of each meal. Wheeler with 700ml clear yellow urine. New right upper arm midline functioning well for multiple antibiotics. Plan to wear BiPAP at .
[2019-01-11] VITALS (52 sets, daily range): BP systolic 108–168; BP diastolic 67–106
[2019-01-11 05:44] LABS: HEMATOCRIT 35.3 % (37.0-47.0); MCH 30.7 pg (26.0-34.0); MCHC 31.6 g/dL (28.0-37.0); RBC 3.64 mil/uL (4.20-5.00); RDW 16.5 % (10.5-14.5)
[2019-01-11 06:01] LABS: HEMOGLOBIN 11.2 gm/dL (12.0-15.0)
[2019-01-11 06:03] LABS: CALCIUM 8.6 mg/dL (8.5-10.1); CREATININE 0.6 mg/dL (0.6-1.0); MAGNESIUM 1.8 mg/dL (1.8-2.4); POTASSIUM 4.4 mmol/L (3.5-5.1)
[2019-01-11 08:40] LABS: PHOSPHORUS 3.1 mg/dL (2.5-4.9)
--- NOTE | 2019-01-11 11:50 | NUR ---
Out of bed with assist to the bedside chair. Heart rate to 100's. Maintained O2 sat 98-100%.
--- NOTE | 2019-01-11 13:46 | NUR ---
Dr Lagos performed bronchoscopy at bedside. RT assisted with the procedure. Pt maintained on 100% O2 with Optiflow during the procedure. Versed 2 mg was given IV for sedation at [address] Lagos. Mostly awake during the procedure. See prodedure record.
--- NOTE | 2019-01-11 15:20 | NUR ---
[facility] ACCEPT[facility] FOR ADMISSION BUT WITHOUT BED THIS WEEKEND. REFERRAL FAXED TO [facility] AND PT IS ACCEPTED FOR ADMISSION PENDING BED AVAILABILTY. PT BRONCHED AGAIN TODAY AND UNABLE TO GET MUCH PER RN REPORT, DISTAL MUCOUS PLUGGING. PER PULM, REMAINS APPROPRIATE FOR ICU CARE, NOT QUITE READY YET DUE TO PNA AND SIGNIFICANT ATELECTASIS. DISCUSSED WITH CM DIRECTOR AND ELECTRONICS INSTALLER. WILL CHECK CLINICAL STATUS MONDAY.
[2019-01-12] VITALS (17 sets, daily range): BP systolic 121–176; BP diastolic 77–148
[2019-01-12 05:35] LABS: HEMATOCRIT 37.4 % (37.0-47.0); HEMOGLOBIN 11.8 gm/dL (12.0-15.0); MCH 30.7 pg (26.0-34.0); MCHC 31.4 g/dL (28.0-37.0); MCV 97.6 fL (80.0-100.0); PLATELET COUNT 204 thou/uL (150-400); RBC 3.84 mil/uL (4.20-5.00); RDW 16.3 % (10.5-14.5); WBC 9.2 thou/uL (4.0-11.0)
[2019-01-12 05:41] LABS: ANION GAP < 0 mmol/L (7-16); BUN 13 mg/dL (7-18); CALCIUM 8.7 mg/dL (8.5-10.1); CHLORIDE 100 mmol/L (98-107); CO2 44 mmol/L (21-32); CREATININE 0.5 mg/dL (0.6-1.0); GLUCOSE 118 mg/dL (74-106); POTASSIUM 4.4 mmol/L (3.5-5.1); SODIUM 142 mmol/L (136-145)
[2019-01-12 06:51] LABS: ABSOLUTE NEUTROPHILS 6.1 thou/uL (1.4-8.2); PLATELET ESTIMATE NORMAL
--- NOTE | 2019-01-12 08:37 | NUR ---
ASSUMED CARE OF PT FOR DAY SHIFT, A&0X4, FORGETFUL ONLY SLIGHTLY, USES CALL LIGHT AND CALLS OUT FREQUENTLY. NO C/O PAIN AT THIS MOMENT NOR ANY NEEDS, UP TO CHAIR WITH ASSISTANCE BY RT, ALL MONITORED PER ICU STANDARDS, PT ENCOURAGED TO USE CALL LIGHT FOR ANY NEEDS. SEE SEPARATE INTERVENTIONS FOR ASSESSMENTS
--- NOTE | 2019-01-12 14:31 | NUR ---
This accounts payable supervisor was paged at the request of the patient. Patient expressed discouragement with ongoing respiratory challenges. She was fearful of being intubated again. We discussed the fears and her past experience when she almost in her SNU facility. We discussed potential ourcomes and the terminologist benefits. She seemed more at peace. We concluded in prayer.
--- NOTE | 2019-01-12 18:39 | NUR ---
GAVE REPORT TO [facility] ON PT.PT AND ALL HER BELONGINGS ARE BEING TAKEN OVER RIGHT BEFORE SHIFT CHANGE
[2019-01-13 00:03] VITALS: BP 175/97
[2019-01-13 01:19] VITALS: BP 151/86
[2019-01-13 05:38] VITALS: BP 181/100
--- NOTE | 2019-01-13 06:08 | NUR ---
PT. ARRIVED AT SHIFT CHANGE; RECEIVED REPORT FROM MORNING NURSE; PT. LEFT ON WHEELCHAIR IN ROOM; NO IV PUMP; MEDICATION & IV LINES AT THE BED SIDE TABLE; RESPIRATORY INTRUMENTS LEFT AT THE ROOM ENTRANCE; PT. HELPED TO BED; AMBULATE WITH WHEELCHAIR; IRRITABLE; IV FLUIDS CONTINUED; HS MEDICATION GIVEN; LATE ON THE NIGHT REQUESTED PRN PAIN MEDICATION; MEDICATION GIVEN BY ONE OF THE RN; PAIN RE-ASSESSMENT; PT. SLEEPING; TOOK BYPAP OFF AROUND 0440; REMAINED TO CALL ; ST. UNDERSTANDING; MONITORING; ASSESSMENT CHARGED; FOLLOWING POC; WILL PASS ON REPORT.
--- NOTE | 2019-01-13 08:10 | NUR ---
ASSUMED CARE OF PT FOR DAY SHIFT. A&0X4,SLIGHTLY FORGETFUL, SWOLLEN BLE R>L, USES CALL LIGHT FREQUENTLY IN SPITE OF NURSES ENCOURAGEMENT SHE'D RETURN IN 30 MINUTES TO CONTINUE CHECKING ON NEEDS. CARDIAC MONITORED. IVF RUNNING, RT TX, 8L N/C, GOOD APPETITE, BM YESTERDAY. DYAN MATTHEW, WILL CONTINUE TO MONITOR. SEE SEPARATE INTERVENTIONS FOR ASSESSMENTS. RT WORKING W/PT CURRENTLY, SHE APPEARS IN GOOD SPIRITS, SAID SHE SLEPT A LITTLE BETTER LAST NIGHT COMPARED TO PRIOR
[2019-01-13 09:24] VITALS: BP 140/72
--- NOTE | 2019-01-13 14:18 | NUR ---
PT'S BELONGINGS: WANTED TO ADD IN PT HAS A PLASTIC BAGGIE OF BAUBLES, RINGS, ETC. ON HER ADJUSTABLE TABLE.
[2019-01-13 15:48] VITALS: BP 171/87
[2019-01-13 20:00] VITALS: BP 150/81
--- NOTE | 2019-01-14 03:54 | NUR ---
ASSUMED PT CARE AT 1900. PT C/O PAIN IN BILATERAL LE AND KNEES. PT GIVEN PAIN MEDICATION AND RELIEVED OF PARTIAL PAIN. PT SLEPT THRU NIGHT. PT IS VERY PLEASANT AND WILL CONTINUE TO MONITOR PER POC.
[2019-01-14 04:00] VITALS: BP 173/98
[2019-01-14 07:56] VITALS: BP 155/88
--- NOTE | 2019-01-14 12:11 | NUR ---
Following for dc planning. Clnical info reviewed. left lung remains sabina out on cxr. per Dr. Arguello, planning bronch with anesthesia for tomorrow so not ready for ltac transition today. update to admissions at [facility] and [facility], both have accepted for ltac stay. Update to [facility], where pt resides in LTC.
--- NOTE | 2019-01-14 14:51 | NUR ---
Nutrition followup: pt continues to eat well, 75-100% of meals. Weights trending upward from admit however pt with present edema. Current weight BMI 49, extreme class 3 obesity. Carb controlled diet. BG 82-170. Plan bronchoscopy tomorrow and may require elective intubation for this procedure. Plan transfer to LTAC soon. Pt voices no education needs/desires at present. Would rec add Na+ restriction to diet order. Otherwise consider low risk.
[2019-01-14 16:59] VITALS: BP 146/70
--- NOTE | 2019-01-14 18:01 | NUR ---
ASSUMED CARE PT AT SHIFT CHANGE. ASSESSMENTS CHARTED. MEDS GIVEN PER JUN. PT ALERT AND ORIENTED, VSS, C/O PAIN IN LEGS- MANAGED WITH PO PAIN MEDS. O2 SATS WNL ON 8L O2. BREATHING TREATMENTS PER RT. CT SCAN OF CHEST THIS SHIFT--SEE RESULTS. WOUND CARE PERFORMED PER ORDERS. APPETITE ADEQUATE, DENIES CP, SOB. PLAN FOR BRONCH IN AM @0730- INFO RECEIVED PER SHILA RT. DENIES NEEDS AT THIS TIME. WILL CONT TO MONITOR AND FOLLOW POC.
[2019-01-14 19:20] VITALS: BP 149/90
[2019-01-15 04:54] VITALS: BP 153/80
--- NOTE | 2019-01-15 06:45 | NUR ---
ASSUMED PT CARE AT 1900. PT VSS PER HER HISTORY. PT HAS BEEN NPO SINCE MIDNIGHT DUE TO BRONCHOSCOPY SCHEDULED FOR TODAY. PT PAIN MEDS ADMINISTERED ACCORDING TO MAR AND POC. OR CALLED AND WILL COME TO GET PT AROUND 0700. WILL CONITNUE TO MONITOR PT NEEDS AND POC.
[2019-01-15] MEDS ORDERED: ACETYLCYST200 MG/1 M INH (12:14)
[2019-01-15] MEDS ORDERED: PROTONIX40 M1 PO (12:14)
[2019-01-15 12:28] VITALS: BP 141/60
[2019-01-15] MEDS ORDERED: ROCEPHIN 11 GM/1001 IV (12:34)
--- NOTE | 2019-01-15 12:40 | NUR ---
DISCUSSED CASE WITH DR. LAWRENCE AND DR. GIRON, BOTH FEE PT STABLE FOR TRANSITION TO LTAC. [facility] WITHOUT BED UNTIL ATLEAST 01/17 AND [facility] ABLE TO ACCEPT TODAY. [facility] CM MET WITH TO DISCUSS DC PLANS AND LTAC OPTIONS. PT IS AGREEABLE TO DC TO [facility] TODAY. UPDATED [facility] ADMISSIONS AND [facility] AND WAITING FOR NOTIFICATION OF TIME [facility] CAN ACCEPT. REQUESTED DC ANALYSIS INTERN GET CHART COPY, FAX DC ORDERS AND ASSIST WITH SET UP OF TRANSPORTATION (AMBULANCE), AND NOTIFY [facility] OF DC PLAN PT RESIDES IN LTC AT FACILITY.
--- NOTE | 2019-01-15 13:54 | NUR ---
FAXED DC ORDERS/SUMMARY TO [facility] SPOKE WITH TOAN IN ADM SHE RECEIVED DC ORDERS AND REQUESTED TRANSPORT FOR 1600 TODAY. ARRANGED TRANSPORT THROUGH [facility] TRIP # [id number] BY AMBULANCE. NOTIFIED UNIT AND CHART COPY PER US. ALSO NOTIFIED WENDI AT [facility] OF DC PLANS. RN TO CALL REPORT TO [phone].
--- NOTE | 2019-01-15 18:39 | NUR ---
DISCHARGED TODAY TO LTAC VIA EMS. REPORT CALLED TO MADELINE MANUEL
== END 2019-01-15 21:05 | DRG 871 ==
LOC: ER 10:12 → EROBS 12:39 → 2N 12:39 → ICU 12:39 → 2N 01-06 17:48 → ICU 01-08 23:01 → 2N 01-12 19:00
PROVIDERS: Emergency Medicine; Internal Medicine; Internal Medicine Pulmonary Disease; ADMIT Internal Medicine
PROC: 5A09357 Assistance with Respiratory Ventilation, Less than 24 Consecutive Hours, Continuous Positive Airway Pressure (ICD-10-PCS; principal; 2019-01-05)
PROC: 02HV33Z Insertion of Infusion Device into Superior Vena Cava, Percutaneous Approach (ICD-10-PCS; principal; 2019-01-05)
PROC: 5A09357 Assistance with Respiratory Ventilation, Less than 24 Consecutive Hours, Continuous Positive Airway Pressure (ICD-10-PCS; 2019-01-06)
PROC: 5A09357 Assistance with Respiratory Ventilation, Less than 24 Consecutive Hours, Continuous Positive Airway Pressure (ICD-10-PCS; 2019-01-07)
PROC: 3E0234Z Introduction of Serum, Toxoid and Vaccine into Muscle, Percutaneous Approach (ICD-10-PCS; 2019-01-07)
PROC: 5A09357 Assistance with Respiratory Ventilation, Less than 24 Consecutive Hours, Continuous Positive Airway Pressure (ICD-10-PCS; 2019-01-08)
PROC: 0BC78ZZ Extirpation of Matter from Left Main Bronchus, Via Natural or Artificial Opening Endoscopic (ICD-10-PCS; 2019-01-08)
PROC: 5A09357 Assistance with Respiratory Ventilation, Less than 24 Consecutive Hours, Continuous Positive Airway Pressure (ICD-10-PCS; 2019-01-10)
PROC: 05HY33Z Insertion of Infusion Device into Upper Vein, Percutaneous Approach (ICD-10-PCS; 2019-01-10)
PROC: 0BC78ZZ Extirpation of Matter from Left Main Bronchus, Via Natural or Artificial Opening Endoscopic (ICD-10-PCS; 2019-01-11)
PROC: 0BC88ZZ Extirpation of Matter from Left Upper Lobe Bronchus, Via Natural or Artificial Opening Endoscopic (ICD-10-PCS; 2019-01-11)
PROC: 5A09357 Assistance with Respiratory Ventilation, Less than 24 Consecutive Hours, Continuous Positive Airway Pressure (ICD-10-PCS; 2019-01-11)
PROC: 0BCB8ZZ Extirpation of Matter from Left Lower Lobe Bronchus, Via Natural or Artificial Opening Endoscopic (ICD-10-PCS; 2019-01-11)
PROC: 5A09357 Assistance with Respiratory Ventilation, Less than 24 Consecutive Hours, Continuous Positive Airway Pressure (ICD-10-PCS; 2019-01-12)
PROC: 5A09357 Assistance with Respiratory Ventilation, Less than 24 Consecutive Hours, Continuous Positive Airway Pressure (ICD-10-PCS; 2019-01-14)
PROC: 0B9L8ZX Drainage of Left Lung, Via Natural or Artificial Opening Endoscopic, Diagnostic (ICD-10-PCS; 2019-01-15)
DX: A40.0 Sepsis due to streptococcus, group A (principal); R65.21 Severe sepsis with septic shock; J96.22 Acute and chronic respiratory failure with hypercapnia; J96.21 Acute and chronic respiratory failure with hypoxia; G92 Toxic encephalopathy; J15.6 Pneumonia due to other Gram-negative bacteria; Z68.42 Body mass index [BMI] 45.0-49.9, adult; I50.32 Chronic diastolic (congestive) heart failure; I13.0 Hypertensive heart and chronic kidney disease with heart failure and stage 1 through stage 4 chronic kidney disease, or unspecified chronic kidney disease; L03.90 Cellulitis, unspecified; E44.1 Mild protein-calorie malnutrition; J44.1 Chronic obstructive pulmonary disease with (acute) exacerbation; J44.0 Chronic obstructive pulmonary disease with (acute) lower respiratory infection; L03.115 Cellulitis of right lower limb; J98.19 Other pulmonary collapse; G47.33 Obstructive sleep apnea (adult) (pediatric); I25.10 Atherosclerotic heart disease of native coronary artery without angina pectoris; E78.5 Hyperlipidemia, unspecified; G89.29 Other chronic pain; E03.9 Hypothyroidism, unspecified; E11.51 Type 2 diabetes mellitus with diabetic peripheral angiopathy without gangrene; N18.3 Chronic kidney disease, stage 3 (moderate); E11.22 Type 2 diabetes mellitus with diabetic chronic kidney disease; M17.0 Bilateral primary osteoarthritis of knee; F17.210 Nicotine dependence, cigarettes, uncomplicated; Y95 Nosocomial condition; E66.01 Morbid (severe) obesity due to excess calories; I87.8 Other specified disorders of veins; E11.40 Type 2 diabetes mellitus with diabetic neuropathy, unspecified; I95.9 Hypotension, unspecified; B96.89 Other specified bacterial agents as the cause of diseases classified elsewhere; D64.9 Anemia, unspecified; I25.2 Old myocardial infarction; Z86.718 Personal history of other venous thrombosis and embolism; Z86.711 Personal history of pulmonary embolism; Z79.899 Other long term (current) drug therapy; Z99.81 Dependence on supplemental oxygen; Z79.01 Long term (current) use of anticoagulants; Z71.6 Tobacco abuse counseling; Z23 Encounter for immunization
CPT/HCPCS: 10078; 10081; 27000; 62110; 62900; 70005

== ENCOUNTER 2019-02-08 22:31 | Inpatient (IN) | payer OTHER ==
[~2019-02-08] VITALS: Ht 160 cm; Wt 120.3 kg
[~2019-02-08 22:31] MED LIST changes: +ACETYLCYST200 MG/1 M INH; +PROTONIX40 M1 PO; +ROCEPHIN 11 GM/1001 IV; +VITCB500GO PO
[2019-02-08 22:32] VITALS: BP 145/97
[2019-02-08 22:51] LABS: BE(vivo) 9.8 mmol/L (-2 to +3); HCO3 41.1 mmol/L (22.0-26.0); PO2 109.1 mmHg (80.0-100.0); sO2 96.7 % (92.0-98.0)
[2019-02-08 22:52] LABS: PCO2 100.9 mmHg (35.0-45.0); pH 7.228 (7.360-7.450)
[2019-02-08 23:08] LABS: ABSOLUTE NEUTROPHILS 5.3 thou/uL (1.4-8.2); BASOPHILS 0.6 % (0.0-2.0); EOSINOPHILS 2.7 % (0.0-3.0); HEMATOCRIT 37.2 % (37.0-47.0); HEMOGLOBIN 11.7 gm/dL (12.0-15.0); LYMPHOCYTES 20.7 % (24.0-44.0); MCH 30.4 pg (26.0-34.0); MCHC 31.5 g/dL (28.0-37.0); MCV 96.4 fL (80.0-100.0); PLATELET COUNT 161 thou/uL (150-400); RBC 3.86 mil/uL (4.20-5.00); RDW 16.5 % (10.5-14.5); WBC 7.5 thou/uL (4.0-11.0)
[2019-02-08 23:15] LABS: ANION GAP < 0 mmol/L (7-16); BUN 7 mg/dL (7-18); CALCIUM 9.1 mg/dL (8.5-10.1); CHLORIDE 99 mmol/L (98-107); CO2 41 mmol/L (21-32); CREATININE 0.5 mg/dL (0.6-1.0); GLUCOSE 129 mg/dL (74-106); POTASSIUM 4.9 mmol/L (3.5-5.1); SODIUM 139 mmol/L (136-145)
[2019-02-08 23:24] LABS: TROPONIN-I <0.06 ng/mL (<0.06)
[2019-02-08] MEDS ORDERED: ASMANEX220 MC1 INH (23:30)
[2019-02-08 23:32] LABS: URINE BILIRUBIN NEGATIVE (Negative); URINE BLOOD NEGATIVE (Negative); URINE CLARITY CLEAR; URINE COLOR YELLOW; URINE GLUCOSE-RANDOM* NEGATIVE (Negative); URINE KETONES NEGATIVE (Negative); URINE LEUKOCYTES-REFLEX NEGATIVE (Negative); URINE NITRITE-REFLEX NEGATIVE (Negative); URINE PROTEIN (DIPSTICK) NEGATIVE (Negative); URINE SPECIFIC GRAVITY >= 1.030 (1.005-1.035); URINE UROBILINOGEN 0.2 E.U./dl (0.2-1.0)
[2019-02-08] MEDS ORDERED: [UNRECOGNIZED DRUG - OTHER] (23:32)
[2019-02-09] VITALS (33 sets, daily range): BP systolic 122–161; BP diastolic 58–86
[2019-02-09 00:11] LABS: BE(vivo) 7.1 mmol/L (-2 to +3); HCO3 37.4 mmol/L (22.0-26.0); sO2 84.7 % (92.0-98.0)
[2019-02-09 00:12] LABS: PCO2 90.1 mmHg (35.0-45.0); pH 7.236 (7.360-7.450)
[2019-02-09 02:06] LABS: BE(vivo) 8.4 mmol/L (-2 to +3); HCO3 39.3 mmol/L (22.0-26.0)
[2019-02-09 02:07] LABS: PCO2 97.4 mmHg (35.0-45.0); PO2 53.7 mmHg (80.0-100.0); pH 7.224 (7.360-7.450)
[2019-02-09 04:50] LABS: BE(vivo) 8.8 mmol/L (-2 to +3); HCO3 41.5 mmol/L (22.0-26.0); PO2 57.1 mmHg (80.0-100.0); sO2 79.4 % (92.0-98.0)
[2019-02-09 04:51] LABS: PCO2 114.4 mmHg (35.0-45.0); pH 7.178 (7.360-7.450)
[2019-02-09 05:46] LABS: HEMATOCRIT 37.8 % (37.0-47.0); HEMOGLOBIN 11.9 gm/dL (12.0-15.0); MCH 30.5 pg (26.0-34.0); MCHC 31.4 g/dL (28.0-37.0); RBC 3.9 mil/uL (4.20-5.00); RDW 16.6 % (10.5-14.5)
[2019-02-09 05:57] LABS: CALCIUM 8.8 mg/dL (8.5-10.1); CREATININE 0.5 mg/dL (0.6-1.0)
[2019-02-09 06:05] LABS: HCO3 38.3 mmol/L (22.0-26.0); PO2 255.9 mmHg (80.0-100.0); sO2 99.4 % (92.0-98.0)
[2019-02-09 06:06] LABS: PCO2 98.1 mmHg (35.0-45.0); pH 7.209 (7.360-7.450)
--- NOTE | 2019-02-09 08:13 | NUR ---
PT RECIEVED FROM ER TO ICU 247. PT LETHARGIC, WOULD WAKE UP TO VERBAL STIMULI, THEN GO BACK TO SLEEP. REMAINS ON BIPAP. NOTIFIED DR WANG OF PT AND ABG RESULTS. ER PHYSICIAN HERE TO EVUALUATE FOR INTUBATION. INSTEAD INCREASED RATE TO 20 ON BIPAP. REPEAT ABG DONE, AND CALLED TO DR WANG. PT MORE ALERT THIS AM. CONT ON BIPAP. SEE [facility] FOR ASSESSMENT. CONT PLAN OF CARE
--- NOTE | 2019-02-09 11:02 | EKG ---
[address] [address] ELECTROCARDIOGRAM REPORT Name: ELAINE RAMIREZ Room #: 247-P ADM IN M.R.#: [id number] Admission: 02/09/19 Attend Phys: Hussain Abreu MD Discharge: Date of : 59 Report #: [id number] THIS REPORT FOR: //name// [facility] ED Test Date: 2019-02-08 Test Time: 22:36:31 Pat Name: ELAINE RAMIREZ Department: Room: [facility] Gender: F Elementary Educator: LARA : 1955 Requested By: Tommie Knight Order Number: [id number] MD: Tristan Michel Measurements Intervals [place] Rate: 109 P: 59 TX: 151 QRS: 40 QRSD: 137 T: 11 QT: 354 QTc: 477 Interpretive Statements Sinus tachycardia Right bundle branch block Compared to ECG 01/05/2019 10:17:03 Right-axis deviation no longer present Electronically Signed On 02-09-2019 11:01:49 COMMUNITY EDUCATION SPECIALIST by Tristan Michel [email or web address] <ELECTRONICALLY SIGNED> By: Tristan Michel MD 02/09/19 1101 [id number] MD ABIOLA Miles
[2019-02-09 12:15] LABS: BE(vivo) 11.5 mmol/L (-2 to +3); HCO3 40.7 mmol/L (22.0-26.0); PCO2 79.9 mmHg (35.0-45.0); pH 7.325 (7.360-7.450); sO2 88.3 % (92.0-98.0)
--- NOTE | 2019-02-09 17:55 | NUR ---
PT ON BIPAP THIS AM. REPEAT ABG'S DONE AT 1200 AND RESULTS CALLED TO DR WANG. PER DR WANG PT OK TO BE OFF BIPAP AND TITRATE O2 SATS >90%. PT TO WEAR BIPAP WHEN SLEEPING. TOLERATING NASAL CANNULA AND TITRATING O2 ABLE. PT DESATS IN UPPER 80'S WHEN TALKING BUT QUICKLY RECOVERS. PT REMAINS NPO. VSS. PROGRESSING TOWARDS GOALS PER PLAN OF CARE.
[2019-02-10] VITALS (30 sets, daily range): BP systolic 113–145; BP diastolic 55–86
[2019-02-10 04:27] LABS: CALCIUM 8.8 mg/dL (8.5-10.1); CREATININE 0.6 mg/dL (0.6-1.0)
--- NOTE | 2019-02-10 05:21 | NUR ---
ASSUMED PT CARE AROUND 1900. A&OX4. PT C/O CHRONIC KNEE PAIN. PAIN MEDICATION GIVEN ORDERED. PT WORE BIPAP DURING THE NIGHT. TOLERATED WELL. IVF AND ABX ADMINISTERED ORDERED. ZAIDI TO DD WITH ADEQUATE URINE OUTPUT. PT IS ABLE TO HELP REPOSITION HERSELF IN BED. EXTREMITIES ELEVATED ON PILLOWS. COMPLETE BATH GIVEN. VSS. PROGRESSING SLOWLY TOWARD POC GOALS. FALL PRECAUTIONS IN PLACE. WILL CONTINUE TO MONITOR FURTHER.
--- NOTE | 2019-02-10 11:19 | NUR ---
ALERT AND ORIENTED AND VITALS STABLE, DENIES PAIN. UP TO THE CHAIR WITH ASSIST AND GAIT BELT AND TOLERATED WELL. OFF BIPAP SINCE BEFORE I ASSUMED CARE AND TOLERATING HF CANNULA W/O RESP DISTRESS. CALL PLACED TO DR. WANG RE: DIET. ORDERS RECEIVED FOR DIET.
[2019-02-11] VITALS (9 sets, daily range): BP systolic 128–157; BP diastolic 71–95
--- NOTE | 2019-02-11 05:06 | NUR ---
RECEIVED PT FROM ICU AT 0435. PT ALERT AND ORIENTED. DENIES PAIN . VSS. PT ORIENTED TO ROOM. TELEMETRY BOX APPLIED. WILL CONTINUE TO MONITOR.
[2019-02-11 07:48] LABS: CALCIUM 9.2 mg/dL (8.5-10.1); CREATININE 0.6 mg/dL (0.6-1.0); POTASSIUM 3.6 mmol/L (3.5-5.1)
--- NOTE | 2019-02-11 09:57 | NUR ---
met with patient who is A/Ox4. She resides ltc at [facility]. She recently dc from [facility] to [facility] 01/15/19. She reports it was a good stay she has been at [facility] in past. plan return to [facility] once stable.
--- NOTE | 2019-02-11 10:54 | NUR ---
FAXED CLINICAL UPDATE TO [facility] RECEIVED CONFIRMATION AND LEFT MSG WITH [facility] IN ADM. DP TO FOLLOW.
--- NOTE | 2019-02-11 13:13 | NUR ---
Assess due to RD consult for obesity, high BMI 49.9=extreme class III obesity. Admit with acute on chronic respiratory failure. Hx dm. BG 149-196. Appetite is excellent, pt enjoys the food. Has had large wt fluctuations but does state has had some overall wt loss intentional and unintentional as reports used to weigh almost 350 lb. Past recent trends 270-280s. Requires lasix. Had no dietary questions. Low nutrition risk
--- NOTE | 2019-02-11 16:45 | NUR ---
FAXED CLINICAL UPDATE TO [facility] OF RECEIVED CONFIRMATION AND LEFT MSG WITH [facility] IN ADM.
--- NOTE | 2019-02-11 20:09 | NUR ---
PATIENT PROGESSING TOWARDS OUTCOME GOALS EVIDENT BY UP IN THE CHAIR TODAY, WITHOUT DYSPNEA. MONITOR STABLE. HANDS ARE LESS EDEMATOUS. KNEE PAIN CONTROLED WITH HYDROCODONE WITH RELIEF AT STATED GOAL FOR PAIN. PATIENT UPDATED TO POC AND REASSURANCE GIVEN WITH PATIENT VERBALIZING UNDERSTANDING.
[2019-02-12] VITALS (7 sets, daily range): BP systolic 105–163; BP diastolic 71–95
--- NOTE | 2019-02-12 05:48 | NUR ---
ASSUMED PT CARE AROUND 1900. A&OX4, FORGETFUL AT TIMES. C/O BILAT KNEE PAIN, WHICH IMPROVED WITH PAIN MEDICATION. PT SAT UP IN CHAIR FOR A FEW HOURS AT BEGINNING OF SHIFT. PT SLEPT WITH BIPAP ON MOST OF THE NIGHT. RESP EVEN AND UNLABORED. VSS. AFEBRILE. ZAIDI TO DD WITH GOOD URINE OUTPUT. FALL PRECAUTIONS IN PLACE. PROGRESSING TOWARD POC GOALS. WILL CONTINUE TO MONITOR FURTHER.
--- NOTE | 2019-02-12 17:50 | NUR ---
ASSUMED CARE THIS AM, AWAKE AND ALERT, NO COMPLAINTS OF PAIN OR NAUSEA. 2-3LNC WITH BIPAP AT NIGHT. CONTINUOUS 02 SAT MONITORING. STANDBY ASSIST FOR TRANSFER TO CHAIR. PT AMBULATED PATIENT AROUND ROOM AND SOME SOA WHILE AMBULATING. PLAN TO GO BACK TO FACILITY IN AM.
[2019-02-13 00:45] VITALS: BP 159/89
[2019-02-13 04:00] VITALS: BP 160/99
[2019-02-13 08:29] VITALS: BP 173/106
[2019-02-13 12:56] LABS: HEMATOCRIT 39.5 % (37.0-47.0); HEMOGLOBIN 12.4 gm/dL (12.0-15.0); MCHC 31.4 g/dL (28.0-37.0); MCV 95.5 fL (80.0-100.0); RBC 4.14 mil/uL (4.20-5.00); RDW 17.3 % (10.5-14.5); WBC 7.5 thou/uL (4.0-11.0)
[2019-02-13 13:00] LABS: CREATININE 0.7 mg/dL (0.6-1.0); MAGNESIUM 2.1 mg/dL (1.8-2.4); POTASSIUM 3.8 mmol/L (3.5-5.1)
--- NOTE | 2019-02-13 14:08 | NUR ---
PATIENT WITH TENATIVE DC TO [facility] TODAY BUT PHYS WANTS PATIENT TO REMAIN ANOTHER DAY. UPDATED FACILITY.
--- NOTE | 2019-02-13 16:59 | NUR ---
ASSUMED CARE OF PT AT SHIFT CHANGE. ASSESSMENTS CHARTED. MEDS GIVEN PER MAR. VSS. A&OX4. ON CONTACT PRECAUTIONS FOR MRSA IN NAR[place]. ON 2.5L NC, PRASHANTH HS. PT HAS DYAN. PT IS SBA TO BSC. PLAN TO DC TOMORROW [place] [facility]. WILL CONTINUE TO MONITOR AND FOLLOW POC.
[2019-02-13 20:00] VITALS: BP 139/88
--- NOTE | 2019-02-14 04:54 | NUR ---
ASSUMED PT CARE AT 1900 WITH NO SIGN OF DISTRESS NOTED. PT IS ALERT AND ORIENTED. PT IS SITTING IN CHAIR WITH OXYGEN ON. NO COMPLIANTS OF PAIN. ASSESSMENT COMPLETED AND DOCUMENTED. FALL PRECAUTION IN PLACE, VITAL SIGNS STABLE. SCHEDULED MEDS ADMINISTERED TO. PT TOLERATED PO INTAKE. PT IS STABLE. DENIES ANY FURTHER NEEDS AT THIS TIME.
[2019-02-14 05:00] VITALS: BP 144/88
[2019-02-14 05:07] LABS: HEMATOCRIT 42.1 % (37.0-47.0); HEMOGLOBIN 13.4 gm/dL (12.0-15.0); MCH 29.7 pg (26.0-34.0); MCHC 31.8 g/dL (28.0-37.0); MCV 93.6 fL (80.0-100.0); RBC 4.5 mil/uL (4.20-5.00); RDW 16.7 % (10.5-14.5); WBC 8.8 thou/uL (4.0-11.0)
[2019-02-14 05:41] LABS: CALCIUM 9.2 mg/dL (8.5-10.1); CREATININE 0.5 mg/dL (0.6-1.0); MAGNESIUM 2.3 mg/dL (1.8-2.4); POTASSIUM 4.1 mmol/L (3.5-5.1)
[2019-02-14 08:49] VITALS: BP 142/82
[2019-02-14 12:20] VITALS: BP 133/89
[2019-02-14] MEDS ORDERED: LEVAQUIN 500 M50012 PO (12:50)
[2019-02-14] MEDS ORDERED: PREDNISONE 10 M10 MG PO (12:51)
[2019-02-14] MEDS ORDERED: LASIX 40 MG TAB40 MG PO (12:52)
--- NOTE | 2019-02-14 13:07 | NUR ---
Plan dc to [place] today at 1500 via [facility] van with oxygen. Updated patient and RN. Orders to be faxed by dc community development planner.
--- NOTE | 2019-02-14 13:39 | NUR ---
RECEIVED PT'S CARE AROUND 0720; PT. ON BED; RESTING WITH EYES CLOSED; 02 ABOVE 90% ON CONTINUOS PULSE 02; DURING ASSESSMENT NO C/O PAIN; AM MEDICATION GIVEN; INSULIN NO NEED REPLACEMENT IN THE MORNING & LUNCH; DYAN D/C AT 1030; ABLE TO VOID 150ML; HAD LARGE BM; ABLE TO PASS FLATUS; ON 3L O2 NC; NO C/O SOB; MONITORING; ASSESSMENT CHARGED; FOLLOWED POC; D/C ORDERS RECEIVED; WILL WORK ON PAPER WORK;
--- NOTE | 2019-02-14 14:23 | NUR ---
PT DISCHARGING TODAY TO [facility] FAXED DC ORDERS/SUMMARY TO FACILITY RECEIVED CONFIRMATION AND LEFT MSG WITH [facility] IN ADM. TRANSPORT ARRANGED BY [facility] FOR 1500. PT TO NOTIFY FAMILY. UNIT NOTIFIED AND CHART COPY PER US. RN TO CALL REPORT TO [phone].
== END 2019-02-14 15:16 | DRG 177 ==
LOC: ER 22:31 → EROBS 02-09 00:34 → 2N 02-09 00:34 → ICU 02-09 02:45 → 2N 02-11 04:59
PROVIDERS: Emergency Medicine; Internal Medicine; Internal Medicine Pulmonary Disease; Nurse Practitioner Family; ADMIT Hospitalist
PROC: 5A09357 Assistance with Respiratory Ventilation, Less than 24 Consecutive Hours, Continuous Positive Airway Pressure (ICD-10-PCS; principal; 2019-02-09)
PROC: 5A09357 Assistance with Respiratory Ventilation, Less than 24 Consecutive Hours, Continuous Positive Airway Pressure (ICD-10-PCS; 2019-02-10)
PROC: 5A09357 Assistance with Respiratory Ventilation, Less than 24 Consecutive Hours, Continuous Positive Airway Pressure (ICD-10-PCS; 2019-02-11)
PROC: 5A09357 Assistance with Respiratory Ventilation, Less than 24 Consecutive Hours, Continuous Positive Airway Pressure (ICD-10-PCS; 2019-02-12)
PROC: 5A09357 Assistance with Respiratory Ventilation, Less than 24 Consecutive Hours, Continuous Positive Airway Pressure (ICD-10-PCS; 2019-02-13)
PROC: 5A09357 Assistance with Respiratory Ventilation, Less than 24 Consecutive Hours, Continuous Positive Airway Pressure (ICD-10-PCS; 2019-02-14)
DX: J15.6 Pneumonia due to other Gram-negative bacteria (principal); J96.21 Acute and chronic respiratory failure with hypoxia; J96.22 Acute and chronic respiratory failure with hypercapnia; J44.1 Chronic obstructive pulmonary disease with (acute) exacerbation; I50.32 Chronic diastolic (congestive) heart failure; F11.20 Opioid dependence, uncomplicated; Z68.42 Body mass index [BMI] 45.0-49.9, adult; I13.0 Hypertensive heart and chronic kidney disease with heart failure and stage 1 through stage 4 chronic kidney disease, or unspecified chronic kidney disease; G47.33 Obstructive sleep apnea (adult) (pediatric); I25.10 Atherosclerotic heart disease of native coronary artery without angina pectoris; M17.0 Bilateral primary osteoarthritis of knee; E78.5 Hyperlipidemia, unspecified; E03.9 Hypothyroidism, unspecified; E11.51 Type 2 diabetes mellitus with diabetic peripheral angiopathy without gangrene; E11.22 Type 2 diabetes mellitus with diabetic chronic kidney disease; N18.3 Chronic kidney disease, stage 3 (moderate); E66.01 Morbid (severe) obesity due to excess calories; I87.8 Other specified disorders of veins; F32.9 Major depressive disorder, single episode, unspecified; F17.210 Nicotine dependence, cigarettes, uncomplicated; G89.4 Chronic pain syndrome; I25.2 Old myocardial infarction; Z86.718 Personal history of other venous thrombosis and embolism; Z86.711 Personal history of pulmonary embolism; Z71.6 Tobacco abuse counseling; Z79.899 Other long term (current) drug therapy
CPT/HCPCS: 10078; 10081; 10203

== ENCOUNTER 2019-03-04 06:51 | Inpatient (IN) | payer OTHER ==
[2019-03-04] VITALS (15 sets, daily range): BP systolic 110–151; BP diastolic 53–81
[~2019-03-04] VITALS: Ht 160 cm; Wt 125.3 kg
[~2019-03-04 06:51] MED LIST changes: +ASMANEX220 MC1 INH; +LASIX 40 MG TAB40 MG PO; +LEVAQUIN 500 M50012 PO; +[UNRECOGNIZED DRUG - OTHER]
[2019-03-04 07:19] LABS: MCHC 30.5 g/dL (28.0-37.0); MCV 98.5 fL (80.0-100.0); RBC 4.67 mil/uL (4.20-5.00); RDW 18.2 % (10.5-14.5); WBC 9.8 thou/uL (4.0-11.0)
[2019-03-04 07:24] LABS: ANION GAP < 0 mmol/L (7-16); BUN 14 mg/dL (7-18); CALCIUM 9.5 mg/dL (8.5-10.1); CHLORIDE 97 mmol/L (98-107); CO2 42 mmol/L (21-32); CREATININE 0.6 mg/dL (0.6-1.0); GLUCOSE 183 mg/dL (74-106); POTASSIUM 5.1 mmol/L (3.5-5.1); SODIUM 138 mmol/L (136-145)
[2019-03-04 07:32] LABS: TROPONIN-I <0.06 ng/mL (<0.06)
[2019-03-04 07:34] LABS: BE(vivo) 7.7 mmol/L (-2 to +3); HCO3 42.2 mmol/L (22.0-26.0); PO2 397.7 mmHg (80.0-100.0); pH 7.121 (7.360-7.450); sO2 99.7 % (92.0-98.0)
[2019-03-04 07:35] LABS: PCO2 132.5 mmHg (35.0-45.0)
[2019-03-04 10:32] LABS: BE(vivo) 8.8 mmol/L (-2 to +3); HCO3 40.9 mmol/L (22.0-26.0); PO2 70.6 mmHg (80.0-100.0); sO2 89.5 % (92.0-98.0)
[2019-03-04 10:37] LABS: PCO2 101.2 mmHg (35.0-45.0); pH 7.224 (7.360-7.450)
[2019-03-04 17:18] LABS: BE(vivo) 13.7 mmol/L (-2 to +3); HCO3 42.1 mmol/L (22.0-26.0); PO2 75.2 mmHg (80.0-100.0); pH 7.392 (7.360-7.450); sO2 94.4 % (92.0-98.0)
[2019-03-04 17:19] LABS: PCO2 70.8 mmHg (35.0-45.0)
--- NOTE | 2019-03-04 18:27 | NUR ---
ASSESSMENTS AND INTERVENTIONS DOCCUMENTED. PATIENT ARRIVED TO THE UNIT AT 11:45 WITH RT, AND ER NURSE. PATIENT SETTLED IN BED ON PROPFOL GTT. PATIENT RESTING THROUGH OUT SHIFT. DR. GIRON CONSULTED. ORDERS RECIEVED. THE PLAN OF CARE IS TO CONTINUE TO MONITOR RESP. STATUS.
[2019-03-04 21:22] LABS: BE(vivo) 15.8 mmol/L (-2 to +3); HCO3 45.1 mmol/L (22.0-26.0); PO2 70.4 mmHg (80.0-100.0); pH 7.373 (7.360-7.450); sO2 92.8 % (92.0-98.0)
[2019-03-04 21:24] LABS: PCO2 79.2 mmHg (35.0-45.0)
[2019-03-05] VITALS (27 sets, daily range): BP systolic 108–163; BP diastolic 39–98
--- NOTE | 2019-03-05 04:51 | NUR ---
0440: Patient extubated self by raising her head up towards her right arm that was restrained. Notifed RT, CN (Cynthia), and Dr. Arguello. Patient's propofol drip was immediately stopped and patient placed on a nonrebreather mask at [address] Arguello stated to place patient on BiPaP since patient is doing well at this time and is stating that she does not want to be intubated any more.
[2019-03-05 05:21] LABS: BE(vivo) 13.3 mmol/L (-2 to +3); HCO3 41.9 mmol/L (22.0-26.0); PCO2 72.2 mmHg (35.0-45.0); PO2 106.6 mmHg (80.0-100.0); pH 7.382 (7.360-7.450); sO2 97.6 % (92.0-98.0)
[2019-03-05 05:32] LABS: HEMATOCRIT 41.1 % (37.0-47.0); HEMOGLOBIN 12.8 gm/dL (12.0-15.0); MCH 29.7 pg (26.0-34.0); MCHC 31.1 g/dL (28.0-37.0); MCV 95.5 fL (80.0-100.0); RBC 4.3 mil/uL (4.20-5.00); RDW 16.8 % (10.5-14.5); WBC 7.8 thou/uL (4.0-11.0)
[2019-03-05 05:36] LABS: ANION GAP < 0 mmol/L (7-16); BUN 10 mg/dL (7-18); CALCIUM 9.3 mg/dL (8.5-10.1); CHLORIDE 100 mmol/L (98-107); CO2 43 mmol/L (21-32); CREATININE 0.4 mg/dL (0.6-1.0); GLUCOSE 120 mg/dL (74-106); POTASSIUM 4.7 mmol/L (3.5-5.1); SODIUM 141 mmol/L (136-145)
--- NOTE | 2019-03-05 08:41 | EKG ---
[address] [address] ELECTROCARDIOGRAM REPORT Name: ELAINE RAMIREZ Room #: 236-P ADM IN M.R.#: [id number] Admission: 03/04/19 Attend Phys: Diego Jimenez MD Discharge: Date of : 59 Report #: [id number] THIS REPORT FOR: //name// [facility] ED Test Date: 2019-03-04 Test Time: 08:04:47 Pat Name: ELAINE RAMIREZ Department: Room: 236 Gender: F Business Solutions Director: Tr ARCOS : 1955 Requested By: Noel Guzman Order Number: [id number] MD: David Cross Measurements Intervals [place] Rate: 85 P: 66 GA: 156 QRS: 55 QRSD: 147 T: 47 QT: 396 QTc: 471 Interpretive Statements Sinus rhythm Right bundle branch block Compared to ECG 02/08/2019 22:36:31 Sinus tachycardia no longer present Electronically Signed On 03-05-2019 8:41:00 UNDERWATER WELDER by David Cross [email or web address] <ELECTRONICALLY SIGNED> By: David Cross MD 03/05/1939 3 3 David Cross MD /EPI
[2019-03-05 13:39] LABS: BE(vivo) 18.7 mmol/L (-2 to +3); PCO2 70.4 mmHg (35.0-45.0); PO2 57.8 mmHg (80.0-100.0); pH 7.442 (7.360-7.450); sO2 89.8 % (92.0-98.0)
--- NOTE | 2019-03-05 14:14 | NUR ---
CM ASSESSMENT: CASE OPENED FOR DC PLANNING. CLINICAL INFO REVIEWED. PT KNOWN FROM MULTIPLE PREVIOUS ADMITS FOR RESP FAILURE. PT RESIDES IN LTC AT [facility]. USES O2 AND BIPAP AT FACILITY. NEEDS ASSIST WITH ADLS, 1 PERSON ASSIST WITH TRANSFERS AND ABLE TO AMBULATE BEHIND W/C SHORT DISTANCES. PT IS HER OWN GUARDIAN. PT INDICATES DC PLAN TO RETURN TO [place] WHEN MEDICALLY READY. PT HAS BEEN TO LTAC IN PAST, LAST AT [facility] IN JAN 2019. PT WAS INTUBATED ON ADMIT AND SELF EXTUBATED LAST NIGHT AND PLACED ON BIPAP. [facility] FROM [place] UPDATED AND REQUESTED DC QUALITY AUDITOR FAX H&P TO [facility] WHEN AVAILABLE.
--- NOTE | 2019-03-05 16:04 | NUR ---
PT DIALIZED TODAY. PHYSICAL THERAPY GOT PT TO CHAIR. TRANSFERED TO ROOM 360 VIA WHEELCHAIR WITH MONITOR.
--- NOTE | 2019-03-05 16:30 | NUR ---
FAXED CLINICAL UPDATE (H/P) TO [facility] OF RECEIVED CONFIRMATION AND SPOKE WITH [facility] IN ADM. DP TO FOLLOW.
--- NOTE | 2019-03-05 16:57 | NUR ---
PATIENT PROGRESSING SHE IS ABLE TO ASSIST IN TURNING SELF SIDE TO SIDE AND UP IN BED. FIO2 WEANED TO 50% ON BIPAP, ABG'S DRAWN AND DR. WANG IS AWARE OF RESULTS. NOW ON HIGH FLOW O2 WITH SAT IN THE LOWER 90'S ON 7L. TAKING LIQUIDS WITHOUT COUGHING OR HOLDING IN MOUTH. SPEAKING IN FULL COMPLETE SENTENCES. OCC PRODUCTIVE COUGH, SWALLOWS SECRETIONS. PATIENT UPDATED TO THE POC AND REASSURANCE GIVEN. VERBALIZES UNDERSTANDING.
[2019-03-06] VITALS (21 sets, daily range): BP systolic 114–163; BP diastolic 61–93
[2019-03-06 04:35] LABS: HEMATOCRIT 41.4 % (37.0-47.0); HEMOGLOBIN 13.1 gm/dL (12.0-15.0); MCH 29.9 pg (26.0-34.0); MCHC 31.7 g/dL (28.0-37.0); MCV 94.2 fL (80.0-100.0); RBC 4.4 mil/uL (4.20-5.00); RDW 17.1 % (10.5-14.5)
[2019-03-06 04:49] LABS: CALCIUM 8.7 mg/dL (8.5-10.1); CREATININE 0.6 mg/dL (0.6-1.0); MAGNESIUM 2.1 mg/dL (1.8-2.4); POTASSIUM 4.1 mmol/L (3.5-5.1)
--- NOTE | 2019-03-06 07:54 | NUR ---
CHART CHECK. PT PROGRESSING TOWARDS GOALS. REPORT GIVEN TO MADELINE BURTON.
[2019-03-07 05:52] VITALS: BP 147/98
[2019-03-07 06:17] LABS: HEMATOCRIT 41.5 % (37.0-47.0); HEMOGLOBIN 13.2 gm/dL (12.0-15.0); MCH 30.3 pg (26.0-34.0); MCHC 31.9 g/dL (28.0-37.0); MCV 94.8 fL (80.0-100.0); RBC 4.38 mil/uL (4.20-5.00); RDW 17.7 % (10.5-14.5); WBC 10.7 thou/uL (4.0-11.0)
[2019-03-07 06:30] LABS: CALCIUM 9.4 mg/dL (8.5-10.1); CREATININE 0.6 mg/dL (0.6-1.0); MAGNESIUM 2.1 mg/dL (1.8-2.4); POTASSIUM 4.8 mmol/L (3.5-5.1)
--- NOTE | 2019-03-07 06:53 | NUR ---
ASSUMED CARE OF PT DURING ADMISSION TO THE UNIT. PT A&Ox4, COOPERATIVE. VS STABLE. CONTINUES TO NEED 6L O2 NC DURING THE DAY AND WAS COMPLIANT WITH CPAP OVER NOC. O2 SAT 93-97%. C/O GEN PAIN, PAIN MEDS GIVEN 2X. PT ABLE TO SLEEP. SHORT RUN OF VTACH, TELE STRIP PLACED IN CHART. STATED SOMEONE TOLD HER SHE WILL COULD POSSIBLY GO HOME TODAY. DISCUSSED REMOVING ZAIDI CATHETER, PT AGREED. PROGRESSING TOWARDS POC GOALS.
[2019-03-07 08:42] VITALS: BP 164/97
[2019-03-07 12:04] VITALS: BP 153/90
--- NOTE | 2019-03-07 12:39 | NUR ---
Nutrition: Pt assessed d/t BMI > 40 (48.9 kg/m2), class III high risk obesity. Here for respiratory distress, recently intubated 03/04 w/ self extubation 03/05. On a heart healthy diet. No meals recorded from yesterday, but pt reports a good appetite and easy transition back to solid food. No soreness w/ eating. Eating salad greens and skim milk at lunch. Discussed pt 86# wt loss over the last 1.5 yrs for a 24% healthy weight change. Pt has been working on gradual food changes/portions for positive weight loss success so far. Denies any further nutrition questions or education needs. Low nutrition risk.
--- NOTE | 2019-03-07 14:08 | NUR ---
SW reviewed chart and spoke with nursing and attending physician. Pt was transferred to 3W from ICU and is progressing towards goals for discharge. Discharge back to [facility] is anticipated for tomorrow. SW updated [facility] post-acute liaison. SW met with pt at bedside to confirm discharge plan. Pt is aware and agreeable with plan. SW is following to assist as needed with discharge planning.
[2019-03-07 15:13] VITALS: BP 133/72
[2019-03-07 19:39] VITALS: BP 1582/82
[2019-03-07 20:58] VITALS: BP 152/82
[2019-03-08 04:48] VITALS: BP 163/91
[2019-03-08 06:42] LABS: HEMATOCRIT 42.5 % (37.0-47.0); HEMOGLOBIN 13.1 gm/dL (12.0-15.0); MCH 29.3 pg (26.0-34.0); MCHC 30.8 g/dL (28.0-37.0); MCV 95.1 fL (80.0-100.0); RBC 4.47 mil/uL (4.20-5.00); RDW 17.5 % (10.5-14.5); WBC 7.4 thou/uL (4.0-11.0)
[2019-03-08 06:52] LABS: CALCIUM 9.6 mg/dL (8.5-10.1); CREATININE 0.6 mg/dL (0.6-1.0); MAGNESIUM 2.2 mg/dL (1.8-2.4); POTASSIUM 4.8 mmol/L (3.5-5.1)
--- NOTE | 2019-03-08 07:56 | NUR ---
ASSUMED CARE AT 1900. REPORTED IMPROVED BREATHING, ASKED TO WEAN O2 DOWN FROM 6L, TURNED TO 4L AND SATTING ABOUT 91-93%; WORE BIPAP FOR SEVERAL HOURS OVERNIGHT. PT C/O CHRONIC PAIN IN KNEES WELL TOOTH PAIN, GAVE NORCO ONCE. PT DENIED NAUSEA, HS ACCUCHECK 136, GAVE 4 UNITS LISPRO, AND PT HAD A SNACK OF YOGURT. WAS SR WITH BBB OVERNIGHT. IV ABX INFUSING. NO OTHER CONCERNS, SHIFT REPORT GIVEN AT 0700.
[2019-03-08 08:01] VITALS: BP 172/82
[2019-03-08 11:18] VITALS: BP 143/75
--- NOTE | 2019-03-08 14:14 | NUR ---
DISCHARGE NOTE: SW reviewed chart and spoke with nursing and attending physician. Pt is medically stable to return to [facility] today. SW notified [facility] post-acute liaison. Wheelchair van transportation scheduled for [id number] per facility's arrangements. Awaiting final discharge orders/summary at this time. Chart copy requested. Nursing to call report. No additional SW needs identified at this time, but is available to assist should needs arise.
[2019-03-08] MEDS ORDERED: PREDNISONE 10 M10 MG PO (14:16)
[2019-03-08] MEDS ORDERED: AUGMENTIN 875-1 EACH PO (14:18)
--- NOTE | 2019-03-08 14:53 | NUR ---
DISCHARGE ORDERS COMPLETED. PATIENT DISCHARGING TO [facility]. CHART COPY COMPLETED PER MESSAGE CLERK. DISCHARGE ORDERS FAXED TO [facility] ADMISSIONS. VERIFIED ORDERS RECEIVED. TRANSPORTATION ARRANGED PER [facility], 16-1630 HOURS. UNIT NOTIFIED. CONTACT NUMBER FOR REPORT PROVIDED. UNIT SW AWARE.
[2019-03-08 15:57] VITALS: BP 128/73
--- NOTE | 2019-03-08 15:57 | NUR ---
ASSUMED CARE OF PT AT 0700. PT IN NO ACUTE DISTRESS. AOX4. ON 4L NC . DIMINISHED LEFT SIDE. UP W/ SBA. ANTICIPATE D/C [id number]. PT PROGRESSING OTWARD POC GOALS.
== END 2019-03-08 16:33 | DRG 208 ==
LOC: ER 06:51 → ICU 07:53 → EROBS 07:53 → ICU 11:36 → 3W 03-06 20:15
PROVIDERS: Emergency Medicine; Pediatrics; ADMIT Internal Medicine
DX: J96.22 Acute and chronic respiratory failure with hypercapnia (principal); J18.9 Pneumonia, unspecified organism; I50.32 Chronic diastolic (congestive) heart failure; J44.1 Chronic obstructive pulmonary disease with (acute) exacerbation; F11.20 Opioid dependence, uncomplicated; J44.0 Chronic obstructive pulmonary disease with (acute) lower respiratory infection; Z68.42 Body mass index [BMI] 45.0-49.9, adult; I13.0 Hypertensive heart and chronic kidney disease with heart failure and stage 1 through stage 4 chronic kidney disease, or unspecified chronic kidney disease; G47.33 Obstructive sleep apnea (adult) (pediatric); I25.10 Atherosclerotic heart disease of native coronary artery without angina pectoris; M17.0 Bilateral primary osteoarthritis of knee; E78.5 Hyperlipidemia, unspecified; G89.29 Other chronic pain; E11.22 Type 2 diabetes mellitus with diabetic chronic kidney disease; E11.51 Type 2 diabetes mellitus with diabetic peripheral angiopathy without gangrene; E03.9 Hypothyroidism, unspecified; E11.40 Type 2 diabetes mellitus with diabetic neuropathy, unspecified; N18.3 Chronic kidney disease, stage 3 (moderate); J96.21 Acute and chronic respiratory failure with hypoxia; E66.01 Morbid (severe) obesity due to excess calories; F17.210 Nicotine dependence, cigarettes, uncomplicated; Z86.711 Personal history of pulmonary embolism; I25.2 Old myocardial infarction; Z86.718 Personal history of other venous thrombosis and embolism; Z79.899 Other long term (current) drug therapy
CPT/HCPCS: 10078; 10879

== ENCOUNTER 2019-03-28 23:44 | Inpatient (IN) | payer OTHER ==
[~2019-03-28] VITALS: Ht 172.7 cm; Wt 124.2 kg
[~2019-03-28 23:44] MED LIST changes: +AUGMENTIN 875-1 EACH PO
[2019-03-28 23:46] VITALS: BP 130/66
[2019-03-29] VITALS (28 sets, daily range): BP systolic 80–154; BP diastolic 24–109
[2019-03-29 00:14] LABS: BE(vivo) 7.5 mmol/L (-2 to +3); HCO3 38.2 mmol/L (22.0-26.0); PO2 65.1 mmHg (80.0-100.0); sO2 88.5 % (92.0-98.0)
[2019-03-29 00:15] LABS: PCO2 86.4 mmHg (35.0-45.0); pH 7.263 (7.360-7.450)
[2019-03-29 00:56] LABS: ABSOLUTE NEUTROPHILS 9.2 thou/uL (1.4-8.2); BASOPHILS 0.2 % (0.0-2.0); EOSINOPHILS 0.6 % (0.0-3.0); HEMATOCRIT 49.4 % (37.0-47.0); HEMOGLOBIN 15.4 gm/dL (12.0-15.0); LYMPHOCYTES 8.3 % (24.0-44.0); MCH 30.5 pg (26.0-34.0); MCHC 31.1 g/dL (28.0-37.0); MCV 98.2 fL (80.0-100.0); MONOCYTES 5.5 % (1.0-8.0); PLATELET COUNT 112 thou/uL (150-400); POLYS 85.4 % (36.0-66.0); RBC 5.03 mil/uL (4.20-5.00); WBC 10.8 thou/uL (4.0-11.0)
[2019-03-29 01:56] LABS: ANISOCYTOSIS 2+
[2019-03-29 02:12] LABS: CALCIUM 9.1 mg/dL (8.5-10.1); CREATININE 0.4 mg/dL (0.6-1.0); POTASSIUM 5.9 mmol/L (3.5-5.1)
[2019-03-29 02:20] LABS: TROPONIN-I 0.24 ng/mL (<0.06)
--- NOTE | 2019-03-29 02:31 | NUR ---
MONITOR READ PATIENT O2 SAT 71% WITH PERFECT PLETH. NURSE CALLED TO ROOM TO ASSIST. BIPAP O2 ADJUSTED TO 100%. RAISED O2 SAT TO 97%. MASK ADJUSTED. PATIENT AROUSED. BEGAN TO BACK DOWN BIPAP O2 TO 80%, WHILE MAINTAINING SATURATION LEVEL. BIPAP O2 BACK DOWN TO 60% AT THIS TIME. RTIVORY, NOTIFIED TO ARRIVE TO PATIENT'S BEDSIDE.
[2019-03-29] MEDS ORDERED: ZESTRIL10 MG PO (04:45)
[2019-03-29] MEDS ORDERED: CLARITIN10 M3 PO (04:45)
[2019-03-29] MEDS ORDERED: LASIX 40 MG TAB40 MG PO (04:45)
[2019-03-29] MEDS ORDERED: MULTIVITAMINS1 EAC7 PO (04:46)
[2019-03-29] MEDS ORDERED: MIRALAX17 GM PO (04:47)
[2019-03-29] MEDS ORDERED: KLOR-CON M2020 MEQ PO (04:48)
[2019-03-29] MEDS ORDERED: PREDNISONE 10 M10 MG PO (04:49)
[2019-03-29] MEDS ORDERED: PROTONIX40 M1 PO (04:50)
[2019-03-29] MEDS ORDERED: SENOKOT8.6 MG PO (04:50)
--- NOTE | 2019-03-29 04:50 | NUR ---
PT. ARRIVED FROM ED AT 0300. ADMISSION HISTORY AND ASSESSMENT COMPLETE. ORDERS ACKNOWLEDGED. PT. DOES NOT SEEM TO BE IN DISTRESS AT THIS TIE AND IS LETHARGIC ON THE BIPAP. PT. RESPONDS TO NAME AND FOLLOWS SIMPLE COMMANDS. PT. BELONGINGS CHARTED AND IN ROOM CLOSET. CONTINUE TO FOLLOW POC. WILL CONTINUE TO MONITOR.
[2019-03-29] MEDS ORDERED: VOLTAREN GEL 1100 GM TOP (04:51)
[2019-03-29] MEDS ORDERED: SYNTHROID50 MCG PO (04:51)
[2019-03-29] MEDS ORDERED: IPRAT-ALBUT 0.5-3 ML INH (04:52)
[2019-03-29] MEDS ORDERED: PROBIOTIC1 EAC5 PO (04:53)
[2019-03-29] MEDS ORDERED: FLONASE 0.05%50 MCG NASAL (04:56)
[2019-03-29 05:07] LABS: BE(vivo) 11.4 mmol/L (-2 to +3); HCO3 41.4 mmol/L (22.0-26.0); PCO2 83.9 mmHg (35.0-45.0); PO2 65.1 mmHg (80.0-100.0); sO2 89.7 % (92.0-98.0)
[2019-03-29 05:08] LABS: pH 7.311 (7.360-7.450)
[2019-03-29 09:29] LABS: CALCIUM 9.2 mg/dL (8.5-10.1); CREATININE 0.6 mg/dL (0.6-1.0); POTASSIUM 5.4 mmol/L (3.5-5.1)
--- NOTE | 2019-03-29 10:18 | NUR ---
VASCULAR ACCESS NURSE NOTIFIED TO PLACE A PICC, SPOKE TO DEOILING MACHINE OPERATOR AND SHE FEELS A PICC IS NOT NECESSARY THIS PATIENT IS ON ONLY 1 PRN IV MED AT THIS TIME AND REQUESTED JUST A PERIPHERAL IV. DUE TO THIS PATIENTS HISTORY WITH OUR TEAM A MIDLINE ACCESS WAS CHOSEN. THE RIGHT UPPER ARM BASILIC WAS WIDLEY PATENT. A #4F POWER MIDLINE WAS PLACED PER POLICY. LINE WAS TRIMMED TO 15CM AND ADVANCED WITHOUT DIFFICULTY. LINE RELEASED FOR USE
--- NOTE | 2019-03-29 12:08 | NUR ---
INITIAL ASSESSMENT: SW reviewed chart and spoke with nursing and attending physician. Pt was admitted from [facility] due to acute on chronic hypoxic and hypercapneic respiratory failure. Pt currently in ICU and was just taken off bipap and is on 8L O2 via NC. Pt is progressing towards goals for discharge. Discharge back to [facility] is anticipated for over the weekend. SW met with pt at bedside. Introduced role of SW. Pt is alert/orientated x 4. Pt states that prior to admission, pt was using a w/c for mobility. Pt is normally on 3L of O2. Pt confirms plan to return to [facility]. brand planner sent clinical info to [facility] for review. SW notified [facility] post-acute liaison of possible weekend discharge. [facility] is able to accept pt back over the weekend. SW is available to assist as needed with discharge planning. [facility]-- Liaison: [phone]
--- NOTE | 2019-03-29 12:56 | NUR ---
FAXED CLINICAL UPDATE TO [facility] RECEIVED CONFIRMATION AND LEFT MSG WITH [facility] IN ADM OF POSS. DC OVER WEEKEND IF PT DISCHARGES OVER WEEKEND PLEASE FAX DC ORDERS/SUMMARY TO [phone] AND CALL [phone] TO SET UP TRANSPORTATION.
--- NOTE | 2019-03-29 15:03 | EKG ---
[address] [address] ELECTROCARDIOGRAM REPORT Name: ELAINE RAMIREZ Room #: 243-P ADM IN M.R.#: [id number] Admission: 03/29/19 Attend Phys: Jamil Anguiano MD Discharge: Date of : 59 Report #: [id number] THIS REPORT FOR: //name// [facility] ED Test Date: 2019-03-29 Test Time: 00:01:31 Pat Name: ELAINE RAMIREZ Department: Room: [facility] Gender: F Cardio Clinician: CARLEE : 1955 Requested By: Noel Guzman Order Number: [id number] MD: David Cross Measurements Intervals [place] Rate: 105 P: 61 MT: 132 QRS: 73 QRSD: 133 T: -2 QT: 336 QTc: 445 Interpretive Statements Sinus tachycardia Probable left atrial enlargement Right bundle branch block Minimal ST elevation, lateral leads Compared to ECG 03/04/2019 08:04:47 ST (T wave) deviation now present Sinus rhythm no longer present Electronically Signed On 03-29-2019 15:03:31 KNURLING MACHINE TENDER by David Cross [email or web address] <ELECTRONICALLY SIGNED> By: David Cross MD 03/29/19 1503 0001 0001 David Cross MD /EPI
--- NOTE | 2019-03-29 15:34 | NUR ---
PATIENT ALERT WITH CONFUSION. ON BIPAP THIS AM HOWEVER WAS TRANSITIONED TO NASAL CANNULA 8L AND THEN WAS WEANED DOWN AND IS CURRENTLY ON 6L. PAITENT UP TO CHAIR AT THIS TIME AND HAS TOLERATED IT WELL. UP TO BSC X 1 WITH LARGE FORMED BOWEL MOVEMENT NOTED. PATIENT REQUESTS TO DRINK LOTS OF FLUIDS, PATIENT EDUCATED ON THE FACT THAT SHE HAS HF AND CANNOT HAVE THAT MUCH FLUIDS. PATIENT VERBILIZES UNDERSTANDING.NO OTHER CONCERNS AT THIS TIME. WILL CONTINUE TO MONITOR AND CARE PER PLAN OF CARE.
--- NOTE | 2019-03-29 18:52 | NUR ---
REC REPORT AT 1830 ON PT COMING FROM ICU. SHE'S HERE AND HOOKED UP TO TELE, IN GOOD SPIRITS, HAS A COUGH, SMOKER, IN GOOD SPIRITS. DENIES ANY NEEDS AT THIS TIME. LIKES TO SNACK. WILL GIVE REPORT TO FUEL ATTENDANT RN AND HAVE ENCOURAGED PT TO USE CALL LIGHT FOR ANY NEEDS
[2019-03-30] VITALS (7 sets, daily range): BP systolic 145–171; BP diastolic 79–98
--- NOTE | 2019-03-30 05:34 | NUR ---
ASSESSMENT: PT REMAIN ALERT AND ORIENT TIMES THREE WITH BOUTS OF CONFUSION TO SITUATION AND TIME. VSS, AFEBRILE. SR PER MONITOR. DENIES PAIN. ZAIDI PATENT WITH DK YELLOW, FOUL UO. ISOLATION FOR MRSA RESPIRATORY HX. UP SBA TO BSC. R UPPER ARM MIDLINE INTACT. SLOW PROGRESS TOWARDS DC GOALS. WILL CONTINUE TO MONITOR.
[2019-03-30 09:45] LABS: BUN 14 mg/dL (7-18); CALCIUM 9.3 mg/dL (8.5-10.1); CHLORIDE 99 mmol/L (98-107); CREATININE 0.6 mg/dL (0.6-1.0); GLUCOSE 166 mg/dL (74-106); POTASSIUM 5.1 mmol/L (3.5-5.1); SODIUM 140 mmol/L (136-145)
[2019-03-30 09:56] LABS: CO2 > 45 mmol/L (21-32)
--- NOTE | 2019-03-30 16:01 | NUR ---
ASSUMED CARE AT SHIFT CHANGE, PATIENT IS ALERT AND ORIENTED X4. SR ON THE MONITOR, BP 156/92 AFTER RECHECKED IN AM, DR LUCAS NOTIFIED AND OTHER VSS. SOB AND TACHYCARDIC WITH ACTIVITIES. DYAN JOSEPH DD. REMAINS ON O2 AT 6L NC WHILE AWAKE. AND WILL CONTINUE WITH POC.
--- NOTE | 2019-03-31 04:33 | NUR ---
ASSUMED PT CARE AT 1900, PT A&OX4, ASSESSMENTS CHARTED, DENIES PAIN, SR ON THE MONITOR, ON BIPAP, ZAIDI CATHETER IN PLACE, MEDICATION GIVEN ORDERED, REMAINS STABLE AT THIS TIME, WILL CONTINUE TO MONITOR
[2019-03-31 04:58] VITALS: BP 159/97
[2019-03-31 05:50] LABS: ANION GAP < 0 mmol/L (7-16); BUN 17 mg/dL (7-18); CHLORIDE 97 mmol/L (98-107); CO2 44 mmol/L (21-32); CREATININE 0.6 mg/dL (0.6-1.0); GLUCOSE 168 mg/dL (74-106); POTASSIUM 4.7 mmol/L (3.5-5.1); SODIUM 137 mmol/L (136-145)
[2019-03-31] MEDS ORDERED: PREDNISONE 10 M10 MG PO (09:26)
[2019-03-31] MEDS ORDERED: CLEOCIN HCL150 MG PO (09:27)
== END 2019-03-31 11:54 | DRG 193 ==
LOC: ER 23:44 → EROBS 03-29 01:14 → 2N 03-29 01:14 → EROBS 03-29 01:14 → ICU 03-29 01:14 → 2N 03-29 18:50
PROVIDERS: Emergency Medicine; Hospitalist; Nurse Practitioner Acute Care; ADMIT Hospitalist
DX: J18.9 Pneumonia, unspecified organism (principal); J96.21 Acute and chronic respiratory failure with hypoxia; J96.22 Acute and chronic respiratory failure with hypercapnia; I50.30 Unspecified diastolic (congestive) heart failure; L03.116 Cellulitis of left lower limb; L03.115 Cellulitis of right lower limb; J44.1 Chronic obstructive pulmonary disease with (acute) exacerbation; F11.20 Opioid dependence, uncomplicated; Z68.41 Body mass index [BMI] 40.0-44.9, adult; J44.0 Chronic obstructive pulmonary disease with (acute) lower respiratory infection; I13.0 Hypertensive heart and chronic kidney disease with heart failure and stage 1 through stage 4 chronic kidney disease, or unspecified chronic kidney disease; G47.33 Obstructive sleep apnea (adult) (pediatric); I25.10 Atherosclerotic heart disease of native coronary artery without angina pectoris; M17.0 Bilateral primary osteoarthritis of knee; E78.5 Hyperlipidemia, unspecified; E11.22 Type 2 diabetes mellitus with diabetic chronic kidney disease; G89.29 Other chronic pain; E03.9 Hypothyroidism, unspecified; E11.51 Type 2 diabetes mellitus with diabetic peripheral angiopathy without gangrene; N18.3 Chronic kidney disease, stage 3 (moderate); F17.210 Nicotine dependence, cigarettes, uncomplicated; I95.9 Hypotension, unspecified; E87.5 Hyperkalemia; E66.01 Morbid (severe) obesity due to excess calories; I25.2 Old myocardial infarction; Z86.718 Personal history of other venous thrombosis and embolism; Z86.711 Personal history of pulmonary embolism; Z79.899 Other long term (current) drug therapy
CPT/HCPCS: 10081; 27000

== ENCOUNTER → 2019-04-09 | Outpatient (CLI) | payer OTHER ==
--- NOTE | 2019-03-31 12:10 | NUR ---
PATIENT DISCHARGE TO [facility] THIS AM. TAKEN BY W/Mihir NOLAN. SHE DID NOT HAVE ANY COMPLANTS. ZAIDI AND PICC D/C AT TIME OF DISCHARGE. WILL CONT WITH PLAN OF CARE.
[~2019-04-09] MED LIST changes: +CLARITIN10 M3 PO; +CLEOCIN HCL150 MG PO; +KLOR-CON M2020 MEQ PO; +PROBIOTIC1 EAC5 PO; +SENOKOT8.6 MG PO; +SYNTHROID50 MCG PO; +VOLTAREN GEL 1100 GM TOP; +ZESTRIL10 MG PO
--- NOTE | 2019-04-11 08:46 | SLE ---
[facility] [place] [address] POLYSOMNOGRAPHY STUDY Name: ELAINE RAMIREZ Room #: [facility]#: [id number] Admission: 04/09/19 Attend Phys: Cristiano Flores MD Discharge: Date of : 59 Report #: [id number] THIS REPORT FOR: //name// CC: Cristiano Herbert MD DATE OF SERVICE: 04/09/2019 SLEEP STUDY REFERRED BY: Dr. Tommie Herbert. The patient is a 63-year-old who weighs 286 pounds with a BMI of 50.8. The patient's Milton score was 11. The patient normally uses oxygen at 3 liters at baseline. A split night study was performed at [facility]. During the night study, the patient spent 495 minutes in bed and slept for 371 minutes with a sleep efficiency of 75%. Sleep latency was 102 minutes with a REM latency of 81.5 minutes. Sleep architecture showed normal stage 1 sleep, increased stage 2 sleep, normal slow wave with an absent REM sleep. During the initial diagnostic portion of the study, the patient slept for 139 minutes. During this time, the patient had no obstructive mixed or central apneas. There were 55 hypopneas. The patient's apnea-hypopnea index was 23.7 per hour. REM sleep was not seen during the diagnostic portion. The patient's supine AHI was 23.7 per hour. The patient normally uses oxygen at 3 liters. This study was started initially on room air, but the patient's oxygen saturations were in the 60s. As a result, the patient was placed on oxygen at 1.5 liters during the diagnostic portion. Overall, nocturnal oximetry study data revealed an average oxygen saturation of 71% with the lowest of 47%. 95 minutes were spent in oxygen saturation between 70% and 79% and 5 minutes with saturation of 80% and 89% and 31 minutes with saturation of 60% and 69%. Oxygen was titrated up to 6 litres. EKG monitoring revealed average heart rate of 107 beats per minute, occasional PACs and PVCs seen. No clinically significant PLM seen. The patient was started on CPAP at a pressure of 10 cm of water. The pressure was not tolerated well by the patient. As a result, the patient was switched to BiPAP starting at a pressure of 11/7 and titrated up to 19/8. At that pressure, the patient slept for 83 minutes. The patient did not have REM sleep. The patient slept supine throughout. The patient's AHI was still 32 per hour. [place] [id number] POLYSOMNOGRAPHY STUDY Name: ELAINE RAMIREZ [facility] [id number] Admission: 04/09/19 Attend Phys: Cristiano Flores MD Discharge: Date of : 59 Report #: [id number] Oxygen saturations remained around mid to high 80s. Optimum BiPAP pressure was not achieved. IMPRESSION: 1. Moderate sleep apnea-hypopnea syndrome at an AHI of 23 per hour. Since oxygen was added during the diagnostic portion, it may have underestimated the severity of sleep apnea when scoring hypopneas. 2. No clinically significant periodic limb movements. 3. Nocturnal hypoxia secondary to combination of obstructive sleep apnea and suspected hypoventilation. RECOMMENDATIONS: 1. Optimum BiPAP pressure was not achieved during this split night study. The patient's AHI was still high at a maximum BiPAP pressure of 19/8. I would recommend that the patient should be placed on auto BiPAP with a maximum IPAP pressure of 26 with a minimum EPAP pressure of 20 with pressure support of 4 and 6 liters of oxygen. 2. Follow up in 4-6 weeks to assess compliance with BiPAP and to document clinical improvement. 3. Weight loss is strongly advised. 4. Avoid CRYPTOLOGIC LINGUIST depressants. 5. Cautioned regarding driving until symptoms of sleep apnea resolve with auto BiPAP. <ELECTRONICALLY SIGNED> By: Cristiano Flores MD 04/11/19 0846 [id number] [id number] Cristiano Flores MD /nt
== END ==
LOC: SLEEPLAB 02-01 13:55
DX: G47.30 Sleep apnea, unspecified (principal); G47.33 Obstructive sleep apnea (adult) (pediatric); R09.02 Hypoxemia

== ENCOUNTER 2019-05-01 14:34 | Inpatient (IN) | payer OTHER ==
[~2019-05-01] VITALS: Ht 167.6 cm; Wt 122.5 kg
[2019-05-01] VITALS (17 sets, daily range): BP systolic 104–141; BP diastolic 57–78
--- NOTE | ~2019-05-01 | EKG ---
[facility] [place] [address] [address] ELECTROCARDIOGRAM REPORT Name: ELAINE RAMIREZ Room #: [facility]#: [id number] Admission: 05/01/19 Attend Phys: Discharge: Date of : 59 Report #: [id number] THIS REPORT FOR: cc: Brent Will James D. DO Epiphany, Epiphany MD ~ THIS REPORT FOR: //name// [facility] ED Test Date: 2019-05-01 Test Time: 15:48:23 Pat Name: ELAINE RAMIREZ Department: Room: Gender: F Entry Analyst: [facility] : 1955 Requested By: Tommie Knight Order Number: [id number] MD: Measurements Intervals [place] Rate: 105 P: 77 RI: 142 QRS: 73 QRSD: 131 T: 51 QT: 354 QTc: 468 Interpretive Statements Sinus tachycardia Probable left atrial enlargement Right bundle branch block Inferior infarct, acute Lateral leads are also involved Compared to ECG 03/29/2019 00:01:31 Myocardial infarct finding now present ST (T wave) deviation no longer present [email or web address] By: 1548 1548 Epiphany Epiphany, /EPI
[2019-05-01 15:10] LABS: ABSOLUTE NEUTROPHILS 9.4 thou/uL (1.4-8.2); BASOPHILS 0.3 % (0.0-2.0); EOSINOPHILS 0.3 % (0.0-3.0); HEMATOCRIT 45.3 % (37.0-47.0); HEMOGLOBIN 13.7 gm/dL (12.0-15.0); LYMPHOCYTES 2.4 % (24.0-44.0); MCH 29.8 pg (26.0-34.0); MCHC 30.2 g/dL (28.0-37.0); MCV 98.6 fL (80.0-100.0); MONOCYTES 5.8 % (1.0-8.0); PLATELET COUNT 132 thou/uL (150-400); POLYS 91.2 % (36.0-66.0); RBC 4.59 mil/uL (4.20-5.00); RDW 16.8 % (10.5-14.5); WBC 10.3 thou/uL (4.0-11.0)
[2019-05-01 15:26] LABS: ANISOCYTOSIS 1+; LARGE PLATELETS FEW; PLATELET ESTIMATE SLIGHTLY DECREASED
[2019-05-01 15:28] LABS: ANION GAP < 0 mmol/L (7-16); BUN 21 mg/dL (7-18); CALCIUM 8.4 mg/dL (8.5-10.1); CHLORIDE 97 mmol/L (98-107); CO2 41 mmol/L (21-32); CREATININE 0.9 mg/dL (0.6-1.0); GLUCOSE 146 mg/dL (74-106); POTASSIUM 5.9 mmol/L (3.5-5.1); SODIUM 135 mmol/L (136-145)
[2019-05-01 15:34] LABS: ALBUMIN 3.2 g/dL (3.4-5.0); SGOT 23 U/L (15-37); SGPT 20 U/L (30-65); TOTAL BILIRUBIN 0.2 mg/dL (<0.1-1.0); TOTAL PROTEIN 7.4 g/dL (6.4-8.2); TROPONIN-I <0.06 ng/mL (<0.06)
[2019-05-01 16:00] LABS: HCO3 40.6 mmol/L (22.0-26.0); sO2 89.5 % (92.0-98.0)
[2019-05-01 16:02] LABS: PCO2 121.6 mmHg (35.0-45.0); pH 7.141 (7.360-7.450)
[2019-05-01 17:40] LABS: URINE BILIRUBIN NEGATIVE (Negative); URINE BLOOD NEGATIVE (Negative); URINE CLARITY CLEAR; URINE COLOR YELLOW; URINE GLUCOSE-RANDOM* NEGATIVE (Negative); URINE KETONES NEGATIVE (Negative); URINE LEUKOCYTES-REFLEX NEGATIVE (Negative); URINE NITRITE-REFLEX NEGATIVE (Negative); URINE PROTEIN (DIPSTICK) TRACE (Negative); URINE SPECIFIC GRAVITY >= 1.030 (1.005-1.035); URINE UROBILINOGEN 0.2 E.U./dl (0.2-1.0)
--- NOTE | 2019-05-01 19:12 | NUR ---
CONSULTED TO PLACE A LINE FOR A CRITICAL PATIENT NEEDING EMERGENT ACCESS. CONSENT PER MEDICAL NECESSITY BY DR. ROBLES. A #6F TRIPLE LUMEN CENTRAL LINE WAS ATTEMPTED X3 AND UNSUCCESSFUL. A #5F TRIPLE LUMEN PICC WAS PLACED PER HOSPITAL POLICY. LINE WAS TRIMMED TO 40CM AND ADVANCED WITHOUT DIFFICULTY. LINE WAS CONFIRMED WITH A CHEST XRAY. LINE RELEASED FOR USE
--- NOTE | 2019-05-01 19:35 | NUR ---
I SENT EKG AND [facility] CHART TO ICU VIA TUBE SYSTEM D/T PATIENT ALREADY LEFT ER.
--- NOTE | 2019-05-01 20:32 | NUR ---
PT ARRIVED VIA CART FROM ER AT 1930. PATIENT MOVED TO ICU BED, CONNECTED TO MONITOR, AND ASSESSED PER ICU PROTOCOL. DR. GIRON NOTIFIED OF PT STATUS. ORDERS OBTAINED. WILL CONTINUE TO CLOSELY MONITOR PATIENT PER ICU PROTOCOL.
[2019-05-01 20:33] LABS: BE(vivo) 5.2 mmol/L (-2 to +3); HCO3 33.7 mmol/L (22.0-26.0); PCO2 67.9 mmHg (35.0-45.0)
[2019-05-01 20:34] LABS: pH 7.313 (7.360-7.450)
[2019-05-02] VITALS (93 sets, daily range): BP systolic 86–156; BP diastolic 45–91
[2019-05-02 05:12] LABS: BE(vivo) 3.7 mmol/L (-2 to +3); HCO3 29.7 mmol/L (22.0-26.0); PCO2 50.8 mmHg (35.0-45.0); PO2 75.8 mmHg (80.0-100.0); pH 7.385 (7.360-7.450); sO2 94.9 % (92.0-98.0)
[2019-05-02 05:50] LABS: HEMATOCRIT 38.9 % (37.0-47.0); HEMOGLOBIN 12.1 gm/dL (12.0-15.0); MCH 29.8 pg (26.0-34.0); MCV 96.1 fL (80.0-100.0); RBC 4.05 mil/uL (4.20-5.00); RDW 16.6 % (10.5-14.5); WBC 9.2 thou/uL (4.0-11.0)
[2019-05-02 06:01] LABS: CALCIUM 8.4 mg/dL (8.5-10.1); CREATININE 0.7 mg/dL (0.6-1.0)
[2019-05-02 06:02] LABS: POTASSIUM 4.3 mmol/L (3.5-5.1)
--- NOTE | 2019-05-02 09:34 | NUR ---
Noted order for tube feeding. When ready to start, recommend vital AF 1.2 at goal of 65ml/hr
--- NOTE | 2019-05-02 13:16 | NUR ---
CM ASSESSMENT: CASE OPENED FOR DC PLANNING. CLINICAL INFO REVIEWED. PT WELL KNOW TO CM FROM MANY PREVIOUS ADMITS FOR A/C RESP FAILURE. PT FOUND HYPOXIC, FEBRILE AND BROUGHT OT [facility]. INTUBATED IN ER AND ON VENT AND SEDATED. POSITIVE OF DARIEN A. LIVES IN LTC AT [facility]. PT ABLE TO AMBULATE SHORT DISTANCE BEHIND W/C, NEEDS ASSIST WITH ADLS, HAS O2 AND BIPAP AT FACILITY. 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 UPDATE TO W[facility] IN ADMISSION AT [facility] AND INFORMED OF POSITIVE A FLU STATUS. REQUESTED DC HEAD UP OPERATOR FAX H&P TO WENDI.
--- NOTE | 2019-05-02 14:07 | NUR ---
FAXED H/P TO [facility] SPOKE WITH [facility] SHE RECEIVED UPDATE AND WILL FOLLOW.
--- NOTE | 2019-05-02 15:23 | NUR ---
ASSUMED CARE @ 0700 05/02/19, PT ASSESSMENTS AND VSS COMPLETE PER ICU PROTOCOL. HX OF DVT AND PE, NO SCD'S ON, DR GIRON INFORMED, ELIQUIS ORDERED. DR LAWRENCE MADE AWARE OF POSITIVE BLOOD CULTURES AND DECREASING UO, NEW ORDERS RECIEVED. TUBE FEEDS STARTED PER DR GIRON ORDER AND DIESEL AUTOMOTIVE TECHNICIAN RECCOMENDATION.
[2019-05-03] VITALS (81 sets, daily range): BP systolic 87–136; BP diastolic 45–90
[2019-05-03 06:01] LABS: HEMATOCRIT 35.8 % (37.0-47.0); HEMOGLOBIN 11.4 gm/dL (12.0-15.0); MCH 30.1 pg (26.0-34.0); MCHC 31.7 g/dL (28.0-37.0); MCV 94.8 fL (80.0-100.0); RBC 3.78 mil/uL (4.20-5.00); RDW 17.3 % (10.5-14.5); WBC 6.1 thou/uL (4.0-11.0)
[2019-05-03 06:12] LABS: CALCIUM 8.6 mg/dL (8.5-10.1); CREATININE 0.6 mg/dL (0.6-1.0); POTASSIUM 3.7 mmol/L (3.5-5.1)
--- NOTE | 2019-05-03 12:50 | NUR ---
PATIENT FAILED HER WEANING TRIAL THAT WAS STARTED AT 1030 AND AT 1035 HER SATURATION HAD DROPPED TO 84%- TRIAL WAS ENDED AND PATIENT WAS PLACED BACK ON ORIGINAL SETTINGS
[2019-05-03 13:42] LABS: BE(vivo) 6.2 mmol/L (-2 to +3); HCO3 32.4 mmol/L (22.0-26.0); PCO2 54.3 mmHg (35.0-45.0); PO2 78.4 mmHg (80.0-100.0); pH 7.394 (7.360-7.450); sO2 95.3 % (92.0-98.0)
--- NOTE | 2019-05-03 16:39 | NUR ---
REMAINS ON THE VENT CPAP TRIAL DONE TODAY PER RT AND PT DIDNT PASS. REMAINS ON SEDATION DENIES ANY PAIN TODAY. ZAIDI TO DD WITH YELLOW URINE PRESENT. LUNGS ARE COARSE. BREATHING TREATEMENTS PER RT. TOLERATING TUBE FEEDING NO RESIDUAL NOTED. NO ISSUES OR CONERNS NOTED AT THIS TIME. PT WILL CONTINUE TO PROGRESS TOWARDS GOALS.
[2019-05-04] VITALS (24 sets, daily range): BP systolic 93–124; BP diastolic 54–76
--- NOTE | 2019-05-04 04:08 | NUR ---
NO OVERNIGHT EVENTS. PT. RESTING COMFORTABLY WITH LIGHT SEDATION. PT. EASILY AROUSES AND WILL FOLLOW COMMANDS. ASSESSMENTS AND VITAL SIGNS CHARTED. MEDICATION TITRATION CHARTED. PT. IS PROGRESSING TOWARDS GOALS. PT. TO TRY CPAP TRIAL AGAIN TODAY. CONTINUE POC. WILL CONTINUE TO MONITOR.
[2019-05-04 05:24] LABS: BE(vivo) 3.5 mmol/L (-2 to +3); HCO3 29.7 mmol/L (22.0-26.0); PCO2 52.3 mmHg (35.0-45.0); PO2 73.4 mmHg (80.0-100.0); pH 7.372 (7.360-7.450); sO2 94.2 % (92.0-98.0)
[2019-05-04 05:34] LABS: ABSOLUTE NEUTROPHILS 2.6 thou/uL (1.4-8.2); BASOPHILS 0.6 % (0.0-2.0); EOSINOPHILS 2.3 % (0.0-3.0); HEMATOCRIT 34.1 % (37.0-47.0); HEMOGLOBIN 10.8 gm/dL (12.0-15.0); LYMPHOCYTES 27.9 % (24.0-44.0); MCHC 31.7 g/dL (28.0-37.0); MCV 94.8 fL (80.0-100.0); MONOCYTES 8.9 % (1.0-8.0); PLATELET COUNT 101 thou/uL (150-400); POLYS 60.3 % (36.0-66.0); RDW 17.5 % (10.5-14.5); WBC 4.2 thou/uL (4.0-11.0)
[2019-05-04 05:50] LABS: ALBUMIN 2.2 g/dL (3.4-5.0); CALCIUM 8.2 mg/dL (8.5-10.1); CREATININE 0.5 mg/dL (0.6-1.0); POTASSIUM 3.9 mmol/L (3.5-5.1); TOTAL BILIRUBIN 0.3 mg/dL (<0.1-1.0); TOTAL PROTEIN 5.4 g/dL (6.4-8.2)
--- NOTE | 2019-05-04 09:17 | NUR ---
PT ASSESSMENTS AND VSS BEING COMPLETED PER ICU PROTOCOL. PT EDEMATOUS IN THIS AM ASSESSMENTS, DR BREE CROWLEY, FLUIDS DC'D.
[2019-05-05] VITALS (24 sets, daily range): BP systolic 103–151; BP diastolic 61–79
--- NOTE | 2019-05-05 04:11 | NUR ---
NO OVERNIGHT EVENTS. PT. RESTING COMFORTABLY WITH LIGHT SEDATION. PT. ABLE TO FOLLOW COMMANDS. WILL OCCASIONALLY REFUSE ORAL CARE, BUT POCKETS SECRETIONS. ASSESMENTS AND VITAL SIGNS CHARTED. MEDICATION TITRATION CHARTED. NO SIGNIFICANT PROGRESS TOWARDS GOALS. CONTINUE POC. WILL CONTINUE TO MONTIOR.
[2019-05-05 05:20] LABS: BE(vivo) 3.7 mmol/L (-2 to +3); HCO3 30.1 mmol/L (22.0-26.0); PCO2 52.9 mmHg (35.0-45.0); PO2 82.8 mmHg (80.0-100.0); pH 7.373 (7.360-7.450); sO2 95.8 % (92.0-98.0)
[2019-05-05 05:38] LABS: ABSOLUTE NEUTROPHILS 3.5 thou/uL (1.4-8.2); BASOPHILS 0.2 % (0.0-2.0); EOSINOPHILS 0.1 % (0.0-3.0); HEMATOCRIT 38.9 % (37.0-47.0); HEMOGLOBIN 12.2 gm/dL (12.0-15.0); LYMPHOCYTES 10.2 % (24.0-44.0); MCH 29.7 pg (26.0-34.0); MCHC 31.3 g/dL (28.0-37.0); MCV 94.7 fL (80.0-100.0); MONOCYTES 2.7 % (1.0-8.0); PLATELET COUNT 107 thou/uL (150-400); POLYS 86.8 % (36.0-66.0); RBC 4.11 mil/uL (4.20-5.00); RDW 17.4 % (10.5-14.5); WBC 4.1 thou/uL (4.0-11.0)
[2019-05-05 05:55] LABS: ALBUMIN 2.5 g/dL (3.4-5.0); CALCIUM 8.4 mg/dL (8.5-10.1); CREATININE 0.6 mg/dL (0.6-1.0); POTASSIUM 4.5 mmol/L (3.5-5.1); TOTAL BILIRUBIN 0.4 mg/dL (<0.1-1.0); TOTAL PROTEIN 6.4 g/dL (6.4-8.2)
[2019-05-05 10:18] LABS: HCO3 31.6 mmol/L (22.0-26.0); PO2 87.9 mmHg (80.0-100.0); sO2 94.1 % (92.0-98.0)
[2019-05-05 10:20] LABS: PCO2 82.8 mmHg (35.0-45.0); pH 7.199 (7.360-7.450)
--- NOTE | 2019-05-05 10:27 | NUR ---
ASSUMED CARE @ 0700 05/05/19, PT ASSESSMENTS AND VSS COMPLETE PER ICU PROTOCOL. CPAP INTIATED @ 0845, ABG OBTAINED @ 1010, PH 7.199 AND PCO2 82.8, DR GIRON CALLED, NEW ORDERS RECIEVED.
[2019-05-06] VITALS (24 sets, daily range): BP systolic 123–164; BP diastolic 63–88
--- NOTE | 2019-05-06 04:09 | NUR ---
AT SHIFT CHANGE PT. WAS RESTLESS AND VERY AGITATED. VERSED GTT WAS TITRATED TO ACCOMODATE PT. NEEDS. AFTER CHANGE PT. WAS MUCH MORE RELAXED AND NO FURTHER EVENTS TOOK PLACE. PT. IS RESTING WELL WITH LIGHT SEDATION. ASSESSMENTS AND VITAL SIGNS CHARTED. MEDICATION TITRATION CHARTED. NO SIGNIFICANT PROGRESS IS BEING MADE TOWARDS GOALS. CONTINUE TO FOLLOW POC. WILL CONTINUE TO MONITOR.
[2019-05-06 09:06] LABS: BE(vivo) 7.9 mmol/L (-2 to +3); HCO3 38.8 mmol/L (22.0-26.0); PO2 75.3 mmHg (80.0-100.0); sO2 91.9 % (92.0-98.0)
[2019-05-06 09:07] LABS: PCO2 90.8 mmHg (35.0-45.0); pH 7.249 (7.360-7.450)
--- NOTE | 2019-05-06 16:26 | NUR ---
PT REMAINS ON THE VENT. ON SEDATION LUNGS ARE DIMINISHED. TOLERATING TUBE FEEDING AT GOAL. ABDOMEN IS ROUND AND SOFT. BOWEL SOUNDS HYPOACTIVE. ZAIDI TO DD WITH YELLOW URINE PRESENT. FAILED CPAP TRIAL THIS AM PER RT. PT BECOMES AGITATED WHEN SEDATION IS LIGHTENED UP. FOLLOWS COMMANDS. TURN Q 2 HOURS AND REPOSITION. NO ISSUES OR CONCERNS NOTED AT THIS TIME PER NURSING
[2019-05-07] VITALS (22 sets, daily range): BP systolic 127–164; BP diastolic 67–89
[2019-05-07 05:26] LABS: BE(vivo) 4.4 mmol/L (-2 to +3); HCO3 31.1 mmol/L (22.0-26.0); PCO2 55.3 mmHg (35.0-45.0); pH 7.368 (7.360-7.450); sO2 96.7 % (92.0-98.0)
[2019-05-07 06:37] LABS: ABSOLUTE NEUTROPHILS 6.3 thou/uL (1.4-8.2); BASOPHILS 0.1 % (0.0-2.0); HEMATOCRIT 40.7 % (37.0-47.0); HEMOGLOBIN 12.7 gm/dL (12.0-15.0); MCH 29.6 pg (26.0-34.0); MCHC 31.2 g/dL (28.0-37.0); PLATELET COUNT 120 thou/uL (150-400); POLYS 73.9 % (36.0-66.0); RBC 4.28 mil/uL (4.20-5.00); RDW 17.3 % (10.5-14.5); WBC 8.5 thou/uL (4.0-11.0)
[2019-05-07 06:54] LABS: ALBUMIN 2.5 g/dL (3.4-5.0); CALCIUM 9.1 mg/dL (8.5-10.1); CREATININE 0.5 mg/dL (0.6-1.0); POTASSIUM 4.2 mmol/L (3.5-5.1); TOTAL BILIRUBIN 0.3 mg/dL (<0.1-1.0); TOTAL PROTEIN 6.2 g/dL (6.4-8.2)
--- NOTE | 2019-05-07 08:13 | NUR ---
SEE [facility] FOR ASSESSMENT. PT INTUBATED/SEDATED ON VERSED AND FENTANYL WITH RAAS SCORE OF -1. AWAKENS EASILY, FOLLOWS COMMANDS. CONT ON VENT WITH 02SAT WNL. LS-REMAIN COARSE, SUCTION MOD AMT OF THICK YELLOW BLOOD TINGED SECRETIONS. HAN TUBE FEEDING. CONT PLAN OF CARE. PROGRESSING TOWARD GOALS.
[2019-05-07 09:34] LABS: BE(vivo) 3.8 mmol/L (-2 to +3); HCO3 33.1 mmol/L (22.0-26.0); PO2 98.9 mmHg (80.0-100.0); sO2 96.3 % (92.0-98.0)
[2019-05-07 09:35] LABS: PCO2 74.4 mmHg (35.0-45.0); pH 7.266 (7.360-7.450)
--- NOTE | 2019-05-07 15:20 | NUR ---
CPAP TRIAL DONE X2. THIS AM ABG'S DONE FOLLOWING AND CRITICAL RESULTS CALLED TO DR GIRON. PT CHANGED BACK TO AC VENT SETTINGS REQUESTED BY DR GIRON. BICARB GIVEN ORDERED AND PT STARTED ON MUCOMYST RT TREATMENTS. DR GIRON REQUESTED TO RETRIAL CPAP THIS AFTERNOON. PT PLACED ON SEDATION VACATION AND CPAP TRIAL DONE BUT PT HAVING FREQUENT APNEIC EPISODES AND DID NOT TOLERATE CPAP THIS AFTERNOON. CHANGED BACK TO A/C VENT SETTINGS. TOLERATING TUBE FEEDINGS WELL. REMAINS ON FENT AND VERSED GTT'S. WHEN AWAKE PT COMPLAINS OF PAIN. DR LAWRENCE NOTIFIED. NO NEW ORDERS RECIEVED. REMAINS IN BILAT WRIST RESTRAINTS, PT VERY IMPULSIVE AND TRYING TO PULL AT LINES/TUBES. WILL CONTINUE TO MONITOR PATIENT.
[2019-05-08] VITALS (18 sets, daily range): BP systolic 129–164; BP diastolic 64–93
[2019-05-08 05:41] LABS: ABSOLUTE NEUTROPHILS 6.3 thou/uL (1.4-8.2); BASOPHILS 0.2 % (0.0-2.0); EOSINOPHILS 0.1 % (0.0-3.0); HEMATOCRIT 41.3 % (37.0-47.0); HEMOGLOBIN 12.8 gm/dL (12.0-15.0); LYMPHOCYTES 16.5 % (24.0-44.0); MCH 29.4 pg (26.0-34.0); MCHC 30.9 g/dL (28.0-37.0); MCV 95.2 fL (80.0-100.0); MONOCYTES 10.3 % (1.0-8.0); PLATELET COUNT 148 thou/uL (150-400); POLYS 72.9 % (36.0-66.0); RBC 4.34 mil/uL (4.20-5.00); RDW 17.2 % (10.5-14.5); WBC 8.7 thou/uL (4.0-11.0)
[2019-05-08 05:43] LABS: BE(vivo) 8.8 mmol/L (-2 to +3); HCO3 36.2 mmol/L (22.0-26.0); PO2 93.3 mmHg (80.0-100.0); pH 7.384 (7.360-7.450); sO2 96.8 % (92.0-98.0)
[2019-05-08 07:05] LABS: ALBUMIN 2.8 g/dL (3.4-5.0); CALCIUM 8.8 mg/dL (8.5-10.1); CREATININE 0.6 mg/dL (0.6-1.0); TOTAL BILIRUBIN 0.3 mg/dL (<0.1-1.0); TOTAL PROTEIN 6.4 g/dL (6.4-8.2)
--- NOTE | 2019-05-08 08:42 | NUR ---
PT PROGRESSING TOWARD GOALS. SEE VENT SETTINGS. AM ABG WNL WITH LESS PEEP AND 02 NEEDS. DIURESISED WELL FROM LASIX GIVEN. VS WNL. HAN TUBE FEEDING. SITTING UP IN BED WATCHING TV. FENTANYL AND VERSED GTT INFUSING VIA PICC. CONT PLAN OF CARE.
[2019-05-08 09:21] LABS: PO2 77.7 mmHg (80.0-100.0); pH 7.362 (7.360-7.450); sO2 94.6 % (92.0-98.0)
[2019-05-08 09:22] LABS: PCO2 66.7 mmHg (35.0-45.0)
--- NOTE | 2019-05-08 14:44 | NUR ---
discussed during los, possible extubation today. cm visited with bedside nurse, she up in bed off vent, eye open. update provided for [facility] liaison.
--- NOTE | 2019-05-08 17:09 | NUR ---
FAXED CLINICAL UPDATE TO [facility] SPOKE WITH WENDI IN ADM SHE RECEIVED UPDATE. DP TO FOLLOW.
--- NOTE | 2019-05-08 19:48 | NUR ---
PT ALERT AND AWAKE THIS AM. CPAP TRAIL - POST ABG RESULTS COMMUNICATED TO DR. WANG. ORDERS TO EXTUBATE. EXTUBATED AT 1335, TOLERATED WELL. MAINTAINTED ON 4L NC WHICH IS HOME BASELINE OXYGEN NEEDS. DENIES ANY PAIN. ABLE TO MOVE AROUND IN BED. NPO UNTIL SPEECH EVALS PATIENT IN THE MORNING. PROGRESSING TOWARDS GOALS.
[2019-05-09] VITALS (20 sets, daily range): BP systolic 131–169; BP diastolic 71–90
--- NOTE | 2019-05-09 03:40 | NUR ---
Pt asked BIPAP to be removed. Place pt on 4 liters of Oxygen via N/C. Will continue to monitor any changes.
[2019-05-09 05:15] LABS: CALCIUM 8.8 mg/dL (8.5-10.1); CREATININE 0.5 mg/dL (0.6-1.0); POTASSIUM 4.6 mmol/L (3.5-5.1)
--- NOTE | 2019-05-09 06:46 | NUR ---
Pt remains stable, no event last night. She remains SOA with any activity, refused to go back to wear BIPAP this am. Continue to be NPO, speech will seeing her this am for swallow eval. VSS. Slowly progressing toward goals.
--- NOTE | 2019-05-09 13:02 | NUR ---
discussed during los, possible out of icu today and will be ready for dc tomorrow to [facility]. cm left message with liaison with tim vick. at dc bedside nurse to call report [phone], fax dc orders to [phone]. send chart copy with pt at discharge. will cont following as needed for dc needs.
--- NOTE | 2019-05-09 17:08 | NUR ---
PT ASSESSMENTS DOCUMENTED. PROGRESSING TOWARDS GOALS. CCT ORDERS. PT WORKED WITH PT/OT TODAY. DIET PER SPEECH RECOMMENDATIONS. UP TO CHAIR.
[2019-05-10 06:00] VITALS: BP 157/89
[2019-05-10 10:00] VITALS: BP 163/97
[2019-05-10 12:00] VITALS: BP 169/95
--- NOTE | 2019-05-10 14:43 | NUR ---
PT REMAINS ON 4-5L NC TO MAINTAIN SATS. ALERT AND ORIENTED. UP TO CHAIR WITH MIN ASSIST. LASIX GIVEN THIS AM WITH APPROPRIATE URINE OUTPUT. SEE I/O DOCUMENTATION. DISCHARGE ORDERS RECIEVED. REPORT CALLED TO FACILITY. PT TRANSPORTED BACK BY WHEELCHAIR VAN. BELONGINGS SENT WITH PATIENT. CHART COPY SENT.
== END 2019-05-10 13:45 | DRG 870 ==
LOC: ER 14:34 → EROBS 17:03 → ICU 17:03
PROVIDERS: Emergency Medicine; Hospitalist; Internal Medicine Pulmonary Disease; Pediatrics; ADMIT Internal Medicine
PROC: 0BH17EZ Insertion of Endotracheal Airway into Trachea, Via Natural or Artificial Opening (ICD-10-PCS; principal; 2019-05-01)
PROC: 5A1955Z Respiratory Ventilation, Greater than 96 Consecutive Hours (ICD-10-PCS; principal; 2019-05-01)
PROC: 05HY33Z Insertion of Infusion Device into Upper Vein, Percutaneous Approach (ICD-10-PCS; principal; 2019-05-01)
PROC: 5A09357 Assistance with Respiratory Ventilation, Less than 24 Consecutive Hours, Continuous Positive Airway Pressure (ICD-10-PCS; 2019-05-09)
DX: A41.9 Sepsis, unspecified organism (principal); R65.21 Severe sepsis with septic shock; J96.22 Acute and chronic respiratory failure with hypercapnia; J18.9 Pneumonia, unspecified organism; J96.21 Acute and chronic respiratory failure with hypoxia; I50.30 Unspecified diastolic (congestive) heart failure; J44.1 Chronic obstructive pulmonary disease with (acute) exacerbation; E66.2 Morbid (severe) obesity with alveolar hypoventilation; Z68.41 Body mass index [BMI] 40.0-44.9, adult; J44.0 Chronic obstructive pulmonary disease with (acute) lower respiratory infection; I13.0 Hypertensive heart and chronic kidney disease with heart failure and stage 1 through stage 4 chronic kidney disease, or unspecified chronic kidney disease; I25.10 Atherosclerotic heart disease of native coronary artery without angina pectoris; M17.0 Bilateral primary osteoarthritis of knee; E78.5 Hyperlipidemia, unspecified; G89.29 Other chronic pain; I49.3 Ventricular premature depolarization; N18.3 Chronic kidney disease, stage 3 (moderate); E03.9 Hypothyroidism, unspecified; F17.210 Nicotine dependence, cigarettes, uncomplicated; I95.9 Hypotension, unspecified; E11.22 Type 2 diabetes mellitus with diabetic chronic kidney disease; E11.51 Type 2 diabetes mellitus with diabetic peripheral angiopathy without gangrene; J10.1 Influenza due to other identified influenza virus with other respiratory manifestations; I25.2 Old myocardial infarction; Z86.718 Personal history of other venous thrombosis and embolism; Z86.711 Personal history of pulmonary embolism; Z79.899 Other long term (current) drug therapy
CPT/HCPCS: 10078; 27000

== ENCOUNTER 2019-05-17 03:05 | Inpatient (IN) | payer OTHER ==
[2019-05-17] VITALS (11 sets, daily range): BP systolic 98–191; BP diastolic 53–110
[~2019-05-17] VITALS: Ht 167.6 cm; Wt 117.8 kg
[2019-05-17 03:12] LABS: BE(vivo) 8.9 mmol/L (-2 to +3); PCO2 127.6 mmHg (35.0-45.0); PO2 61.5 mmHg (80.0-100.0); pH 7.145 (7.360-7.450); sO2 81.2 % (92.0-98.0)
[2019-05-17 03:39] LABS: HCO3 37.8 mmol/L (22.0-26.0); PO2 72.5 mmHg (80.0-100.0); pH 7.199 (7.360-7.450); sO2 89.7 % (92.0-98.0)
[2019-05-17 03:40] LABS: PCO2 99.2 mmHg (35.0-45.0)
--- NOTE | 2019-05-17 03:59 | NUR ---
IV WAS ESTABLISHED BUT WOULD NOT DRAW BLOOD, MULTIPLE ATTEMPTS TO DRAW BLOOD UNSUCCESSFUL, LAB AT BEDSIDE AT THIS TIME TRYING TO DRAW.
[2019-05-17 04:25] LABS: HEMATOCRIT 45.8 % (37.0-47.0); HEMOGLOBIN 13.8 gm/dL (12.0-15.0); MCH 29.8 pg (26.0-34.0); MCHC 30.2 g/dL (28.0-37.0); MCV 98.5 fL (80.0-100.0); RBC 4.65 mil/uL (4.20-5.00); RDW 17.1 % (10.5-14.5); WBC 11.1 thou/uL (4.0-11.0)
[2019-05-17 04:33] LABS: ANION GAP 2 mmol/L (7-16); BUN 15 mg/dL (7-18); CALCIUM 9.1 mg/dL (8.5-10.1); CHLORIDE 96 mmol/L (98-107); CO2 40 mmol/L (21-32); CREATININE 0.7 mg/dL (0.6-1.0); GLUCOSE 122 mg/dL (74-106); POTASSIUM 5.7 mmol/L (3.5-5.1); SODIUM 138 mmol/L (136-145)
[2019-05-17 04:42] LABS: TROPONIN-I <0.06 ng/mL (<0.06)
[2019-05-17 07:36] LABS: BE(vivo) 10.9 mmol/L (-2 to +3); HCO3 39.6 mmol/L (22.0-26.0); PO2 58.1 mmHg (80.0-100.0); pH 7.348 (7.360-7.450); sO2 87.6 % (92.0-98.0)
[2019-05-17 07:37] LABS: PCO2 73.8 mmHg (35.0-45.0)
--- NOTE | 2019-05-17 14:06 | NUR ---
emma and sharlene went to er 170 bed, visited with pt she using bipap keep taking mask off. life time reserve signed by diana. emma read it to her and she signed it.
[2019-05-17 16:05] LABS: BE(vivo) 8.6 mmol/L (-2 to +3); HCO3 35.8 mmol/L (22.0-26.0); PCO2 61.7 mmHg (35.0-45.0); pH 7.382 (7.360-7.450); sO2 87.2 % (92.0-98.0)
[2019-05-18] VITALS (48 sets, daily range): BP systolic 134–177; BP diastolic 69–110
[2019-05-18 04:23] LABS: HEMATOCRIT 41.3 % (37.0-47.0); HEMOGLOBIN 12.8 gm/dL (12.0-15.0); MCH 29.7 pg (26.0-34.0); MCV 95.8 fL (80.0-100.0); RBC 4.31 mil/uL (4.20-5.00); RDW 16.7 % (10.5-14.5); WBC 7.2 thou/uL (4.0-11.0)
[2019-05-18 04:24] LABS: INR 1.1; PROTIME 10.8 Seconds (9.3-11.4)
[2019-05-18 04:28] LABS: CALCIUM 9.3 mg/dL (8.5-10.1); CREATININE 0.6 mg/dL (0.6-1.0); MAGNESIUM 1.7 mg/dL (1.8-2.4); PHOSPHORUS 1.6 mg/dL (2.5-4.9); POTASSIUM 4.5 mmol/L (3.5-5.1)
--- NOTE | 2019-05-18 06:00 | NUR ---
PT ARRIVED IN ICU FROM ER AT 2205 LAST NIGHT. PT EXTREMELY AGITATED AND RESTLESS UPON ARRIVAL. PT IN SINUS TACH AND HYPERTENSIVE. DR. WANG CONTACTED FOR ORDERS. PRECEDEX GTT STARTED. PT EVENTUALLY CALMED DOWN WITH SEDATION. FLUIDS AND ABX STARTED. LASIX GIVEN AND ZAIDI CATH PLACED. WITH SEDATION, PT'S BP CAME DOWN, BUT EVENTUALLY BECAME HYPERTENSIVE AGAIN, ALTHOUGH PT WAS NOT AGITATED AT THE TIME. Selvin GALLEGOS PROGRAM ARRANGER NOTIFIED WHEN SBP REACHED 170s; NO ORDERS GIVEN, BUT TO MONITOR THE BP AND CALL IF SBP > 180. PT'S BP EVENTUALLY LOWERED WITHOUT TREATMENT. NO MORE INCIDENCES OF EXTREME AGITATION OR RESTLESSNESS THIS MORNING. WILL CONTINUE TO MONITOR.
--- NOTE | 2019-05-18 14:51 | NUR ---
RIJ DOUBLE LUMEN CATHETER PROCEDURE. CONSENT FORM SIGNED BY DR. WANG FOR MEDICAL NECESSITY. RISK, BENEFITS, AND ALTERNATIVE TREATMENT DISCUSSED WITH THE DREthel AND THE PATIENT. PATIENT HAS ALTERED MENTAL STATUS BUT DOES VOICE UNDERSTANDING AND IS COOPERATIVE. RIJ DOUBLE LUMEN CATHETER PLACED TO RIJ WITH ONE STICK AND NO COMPLICATIONS. PATIENT TOLERATED VERY WELL. NO COMPLICATIONS. RIJ TRIMMED TO 26CM WITH 7CM EXTERNAL. EXECUTIVE DIRECTOR SHELTERED WORKSHOP NOTIFIED OKAY TO USE POST CHEST XRAY. TIME OUT AND ORDER VERIFIED PRIOR TO PROCEDURE WITH NILDA MANCILLA RN AT 1345.
[2019-05-18 15:00] LABS: URINE BILIRUBIN NEGATIVE (Negative); URINE BLOOD NEGATIVE (Negative); URINE CLARITY CLEAR; URINE COLOR YELLOW; URINE GLUCOSE-RANDOM* NEGATIVE (Negative); URINE KETONES NEGATIVE (Negative); URINE LEUKOCYTES-REFLEX 1+ (Negative); URINE NITRITE-REFLEX NEGATIVE (Negative); URINE PROTEIN (DIPSTICK) NEGATIVE (Negative); URINE UROBILINOGEN 0.2 E.U./dl (0.2-1.0)
[2019-05-18 15:10] LABS: BACTERIA-REFLEX 1-9 Few /HPF (None Seen); CASTS None Seen /LPF (None Seen); CRYSTALS None Seen /LPF (None Seen); SQUAMOUS None Seen /LPF (0-3); URINE RBC 0-2 Rare /HPF (0-2); URINE WBC-REFLEX 0-5 Rare /HPF (0-5)
--- NOTE | 2019-05-18 18:35 | NUR ---
ASSESSMENTS AND INTERVENTIONS DOCCUMENTED. PATIENT RESTING THROUGH OUT SHIFT. PATIENT HAVING HYPERTYENSION, ORDERS RECIEVED. PATIENT PROGRESSING TOWARDS GOALS EVIDENCE BY CHEST X RAY SHOWING MILD IMPROVEMENT
[2019-05-19] VITALS (19 sets, daily range): BP systolic 138–176; BP diastolic 63–101
[2019-05-19 06:41] LABS: ABSOLUTE NEUTROPHILS 7.2 thou/uL (1.4-8.2); BASOPHILS 0.8 % (0.0-2.0); HEMATOCRIT 41.4 % (37.0-47.0); HEMOGLOBIN 13.1 gm/dL (12.0-15.0); LYMPHOCYTES 9.2 % (24.0-44.0); MCH 29.8 pg (26.0-34.0); MCHC 31.6 g/dL (28.0-37.0); MCV 94.5 fL (80.0-100.0); MONOCYTES 7.4 % (1.0-8.0); PLATELET COUNT 123 thou/uL (150-400); POLYS 82.6 % (36.0-66.0); RBC 4.38 mil/uL (4.20-5.00); RDW 17.3 % (10.5-14.5); WBC 8.7 thou/uL (4.0-11.0)
[2019-05-19 06:56] LABS: ALBUMIN 2.6 g/dL (3.4-5.0); CALCIUM 8.9 mg/dL (8.5-10.1); PHOSPHORUS 3.3 mg/dL (2.5-4.9); POTASSIUM 4.2 mmol/L (3.5-5.1); TOTAL BILIRUBIN 0.4 mg/dL (<0.1-1.0); TOTAL PROTEIN 6.4 g/dL (6.4-8.2)
--- NOTE | 2019-05-19 19:15 | NUR ---
MULTIPLE ATTEMPTS TO CALL REPORT ON CCU. NURSE GAVE REPORT AT 1915 TO RN ON CCU. SHE DENIED FURTHER QUESTIONS. PATIENT TO BE TRANSFERRED SHORTLY WITH ALL BELONGINGS.
--- NOTE | 2019-05-19 20:22 | NUR ---
pt on bipap prn, nc during the entire day shift. adequate urine output. nsr. transfer orders to ccu. pt has red/scaly bilateral lower legs. progressing towards plan of care as evidence by no need for bipap to correct abg's. pt transfer to room 219 at 2000.
[2019-05-20 00:39] VITALS: BP 111/67
[2019-05-20 02:20] LABS: CALCIUM 8.4 mg/dL (8.5-10.1); CREATININE 1.1 mg/dL (0.6-1.0); POTASSIUM 3.9 mmol/L (3.5-5.1)
[2019-05-20 04:10] VITALS: BP 141/78
[2019-05-20 08:07] VITALS: BP 172/93
--- NOTE | 2019-05-20 08:42 | NUR ---
pt transfered from icu earlier in the shift in contact isolation, prn pain med given at hs, pt tolerated bipap until 0300 then placed on nc sats in mid 90's, vss after prn hydralazine given for elevated bp. resting intermittently thru the noc, tolerating clear liquid diet hoping to get it advanced today, will con't to monitor per ppoc.
[2019-05-20 16:00] VITALS: BP 156/70
--- NOTE | 2019-05-20 17:56 | NUR ---
PT ALERT AND ORIENTED. IV ABX AND RT TREATMENT GIVEN ORDERED. CONTACT ISOLATION MAINTAINED. NO CARDIAC OR RESPIRATORY DISTRESS NOTED. WILL CONTINUE TO MONITOR.
[2019-05-20 19:35] VITALS: BP 142/79
--- NOTE | 2019-05-21 03:37 | NUR ---
ASSESSMENT DOCUMENTED.PT BEEN RESTING IN NO ACUTE DISTRESS.A/OX4.VSS.ON BIPAP AT THIS TIME WHILE SLEEPING.ABT INFUSING PER ORDERS.REPORTED GENERALZED PAIN THAT IS CONTROLLED BY PAIN MEDS.DYAN MATTHEW.REPOSITIONED IN BED.PT TO DISCHARGE BACK TO NURSING FACILITY ONCE STABLE
[2019-05-21 05:18] VITALS: BP 163/88
[2019-05-21 09:12] VITALS: BP 171/95
[2019-05-21 10:04] VITALS: BP 156/81
[2019-05-21 11:35] VITALS: BP 154/84
--- NOTE | 2019-05-21 16:53 | NUR ---
FAXED CLINICAL UPDATE TO [facility] SPOKE WITH WENDI IN ADM SHE RECEIVED UPDATE. DP TO FOLLOW.
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
[2019-05-21 17:28] VITALS: BP 150/89
--- NOTE | 2019-05-21 18:54 | NUR ---
ASSUMMED PT CARE AT APPROXIMATELY 0700. PT A&O X4. ASSESSMENT CHARTED. FALL PRECAUTIONS IN PLACE. PT DENIES HAVING CHEST PAIN. PT DENIES HAVING SOB. PT DENIES HAVING ACUTE PAIN. PT CATH D/C. PT HAS HAD POST CATH REMOVAL VOID. ELEVATED BP IN AM. NOTIFIED DR. LAWRENCE AFTER GIVING PRN ANTI-HYPERTENSIVE AND BP CONTINUED TO BE ELEVATED. DR. LAWRENCE ORDERED NEW BP MED. NEW MED IMPLEMENTED. VITAL SIGNS STABLE. BLOOD SUGARS STABLE. PT WORKED C PHYSICAL THERAPY TODAY. PT STEADILY AMBULATES FROM BED TO COMMODE C PIVOTING. PT COMFORTABLE IN CHAIR. PT DENIES HAVING FURTHER CONCERNS. SPEECH LANGUAGE PATHOLOGIST STATED PT COULD ADVANCE DIET. PT TOLERATING DIET.
[2019-05-21 19:12] VITALS: BP 124/73
--- NOTE | 2019-05-22 04:37 | NUR ---
ASSESSMENT DOCUMENTED.PT BEEN RESTING IN NO ACUTE DISTRESS.A/OX4.VSS.ON O2 AT 4LITERS PNC.BIPAP ON WHILE WAS SLEEPING.PRECIADO AND TACHYCARDIA WITH ACTIVITIES NOTED.SBA TO BSC.JACKIE LES PAIN CONTROLLED WITH PAIN MEDS.PT DENIES ANY NEEDS AT THIS TIME.POSSIBLE DISCHARGE TOMORROW.
[2019-05-22 04:45] VITALS: BP 179/102
[2019-05-22 07:58] VITALS: BP 153/81
[2019-05-22 10:30] VITALS: BP 150/81
[2019-05-22 11:16] VITALS: BP 151/77
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
[2019-05-22] MEDS ORDERED: LISINOPRIL20 MG PO (14:55)
--- NOTE | 2019-05-22 16:29 | NUR ---
PT DISCHARGING TODAY BACK TO [facility] FAXED DC ORDERS/SUMMARAY TO FACILITY SPOKE WITH WENDI IN ADM SHE RECEIVED ORDERS AND ARRANGED TRANSPORT BY [facility] FOR [phone]. PT WILL NOTIFY FAMILY UNIT NOTIFIED AND CHART COPY PER US. RN TO CALL REPORT TO [phone].
[2019-05-22 16:48] VITALS: BP 151/79
--- NOTE | 2019-05-22 18:28 | NUR ---
ASSUMMED PT CARE AT APPROXIMATELY 0700. PT A&0 X4. ASSESSMENT CHARTED. FALL PRECAUTIONS IN PLACE. PT DENIES HAVING CHEST PAIN. PT DENIES HAVING SOB. PT STATED SHE HAD GENERALIZED PAIN. PT RECIEVED ANALGESICS. PT STATED ANLAGESICS HELPED RELIEVE PAIN. VITAL SIGNS STABLE. BLOOD SUGARS STABLE. PT DISCHARGING BACK TO FACILITY. PT CENTRAL LINE DC. PT PERIPHERAL LINE DC. PT AMBULATES STEADY C WALKER. PT UP IN CHAIR THROUGHOUT SHIFT. PT COMFORTABLE. PT DENIES HAVING FURTHER CONCERNS. CALLED REPORT TO FACILITY. AWAITING ARRIVAL OF TRANSPORT FROM FACILITY. TELE DC.
--- NOTE | 2019-06-07 15:25 | EKG ---
[facility] [place] [address] ELECTROCARDIOGRAM REPORT Name: ELAINE RAMIREZ Room #: 219-P [facility] IN M.R.#: [id number] Admission: 05/17/19 Attend Phys: Zeina Ramsay MD Discharge: 05/22/19 Date of : 59 Report #: [id number] THIS REPORT FOR: cc: Brent Will James D. DO Lundgren, Craig H. MD [facility] THIS REPORT FOR: //name// [facility] ED Test Date: 2019-05-17 Test Time: 03:24:40 Pat Name: ELAINE RAMIREZ Department: Room: 170 Gender: F Studio Operation Engineer: thalia : 1955 Requested By: Noel Guzman Order Number: [id number] MD: Randal Ding Measurements Intervals [place] Rate: 108 P: 66 TX: 136 QRS: 51 QRSD: 132 T: 30 QT: 344 QTc: 461 Interpretive Statements Sinus tachycardia Atrial premature complex Right bundle branch block Compared to ECG 05/01/2019 15:48:23 Atrial premature complex(es) now present Electronically Signed On 05-17-2019 8:13:01 COFFEE FARMER by Randal Ding [email or web address] <ELECTRONICALLY SIGNED> By: Randal Ding MD, [facility] 05/17/19 0813 3 3 Randal Ding MD, [facility] /EPI
== END 2019-05-22 19:01 | DRG 177 ==
LOC: ER 03:05 → EROBS 05:08 → 2N 05:08 → ICU 21:50 → 2N 05-19 20:57
PROVIDERS: Emergency Medicine; Internal Medicine; Internal Medicine Pulmonary Disease; Nurse Practitioner Family; ADMIT Hospitalist
PROC: 5A09357 Assistance with Respiratory Ventilation, Less than 24 Consecutive Hours, Continuous Positive Airway Pressure (ICD-10-PCS; principal; 2019-05-17)
PROC: 5A09357 Assistance with Respiratory Ventilation, Less than 24 Consecutive Hours, Continuous Positive Airway Pressure (ICD-10-PCS; 2019-05-18)
PROC: 02H633Z Insertion of Infusion Device into Right Atrium, Percutaneous Approach (ICD-10-PCS; 2019-05-18)
PROC: 5A09357 Assistance with Respiratory Ventilation, Less than 24 Consecutive Hours, Continuous Positive Airway Pressure (ICD-10-PCS; 2019-05-19)
PROC: 5A09357 Assistance with Respiratory Ventilation, Less than 24 Consecutive Hours, Continuous Positive Airway Pressure (ICD-10-PCS; 2019-05-20)
PROC: 5A09357 Assistance with Respiratory Ventilation, Less than 24 Consecutive Hours, Continuous Positive Airway Pressure (ICD-10-PCS; 2019-05-21)
PROC: 5A09357 Assistance with Respiratory Ventilation, Less than 24 Consecutive Hours, Continuous Positive Airway Pressure (ICD-10-PCS; 2019-05-22)
DX: J69.0 Pneumonitis due to inhalation of food and vomit (principal); J96.22 Acute and chronic respiratory failure with hypercapnia; G92 Toxic encephalopathy; J96.21 Acute and chronic respiratory failure with hypoxia; J44.0 Chronic obstructive pulmonary disease with (acute) lower respiratory infection; Z68.41 Body mass index [BMI] 40.0-44.9, adult; I13.0 Hypertensive heart and chronic kidney disease with heart failure and stage 1 through stage 4 chronic kidney disease, or unspecified chronic kidney disease; I50.30 Unspecified diastolic (congestive) heart failure; E66.2 Morbid (severe) obesity with alveolar hypoventilation; E03.9 Hypothyroidism, unspecified; I25.10 Atherosclerotic heart disease of native coronary artery without angina pectoris; M17.0 Bilateral primary osteoarthritis of knee; E78.5 Hyperlipidemia, unspecified; G89.29 Other chronic pain; N18.3 Chronic kidney disease, stage 3 (moderate); F17.210 Nicotine dependence, cigarettes, uncomplicated; E11.22 Type 2 diabetes mellitus with diabetic chronic kidney disease; F41.9 Anxiety disorder, unspecified; E83.39 Other disorders of phosphorus metabolism; E11.51 Type 2 diabetes mellitus with diabetic peripheral angiopathy without gangrene; E83.42 Hypomagnesemia; D69.6 Thrombocytopenia, unspecified; Z87.01 Personal history of pneumonia (recurrent); Z99.81 Dependence on supplemental oxygen; Z79.899 Other long term (current) drug therapy; I25.2 Old myocardial infarction; Z86.718 Personal history of other venous thrombosis and embolism; Z79.01 Long term (current) use of anticoagulants; Z86.711 Personal history of pulmonary embolism
CPT/HCPCS: 10078; 10081

== ENCOUNTER 2019-06-16 13:30 | Emergency (ER) | payer OTHER ==
[~2019-06-16] VITALS: Ht 160 cm; Wt 127.0 kg
[~2019-06-16 13:30] MED LIST changes: +LISINOPRIL20 MG PO
[2019-06-16 14:09] LABS: ABSOLUTE NEUTROPHILS 4.8 thou/uL (1.4-8.2); BASOPHILS 0.6 % (0.0-2.0); EOSINOPHILS 0.4 % (0.0-3.0); HEMATOCRIT 40.5 % (37.0-47.0); HEMOGLOBIN 12.6 gm/dL (12.0-15.0); LYMPHOCYTES 15.1 % (24.0-44.0); MCH 30.1 pg (26.0-34.0); MCHC 31.2 g/dL (28.0-37.0); MCV 96.4 fL (80.0-100.0); PLATELET COUNT 105 thou/uL (150-400); POLYS 76.9 % (36.0-66.0); RDW 17.6 % (10.5-14.5); WBC 6.2 thou/uL (4.0-11.0)
[2019-06-16 14:18] LABS: ANION GAP < 0 mmol/L (7-16); BUN 27 mg/dL (7-18); CHLORIDE 99 mmol/L (98-107); CO2 41 mmol/L (21-32); CREATININE 1.6 mg/dL (0.6-1.0); GLUCOSE 97 mg/dL (74-106); SODIUM 137 mmol/L (136-145)
[2019-06-16 14:23] LABS: INR 1.2; PROTIME 11.8 Seconds (9.3-11.4)
[2019-06-16 14:27] LABS: TROPONIN-I 0.29 ng/mL (<0.06)
[2019-06-16 14:35] LABS: BE(vivo) 8.6 mmol/L (-2 to +3); HCO3 37.9 mmol/L (22.0-26.0); PCO2 77.6 mmHg (35.0-45.0); PO2 77.3 mmHg (80.0-100.0); pH 7.307 (7.360-7.450); sO2 93.6 % (92.0-98.0)
[2019-06-16] MEDS ORDERED: ZINC SULFATE220 MG PO (15:32)
[2019-06-16 16:07] VITALS: BP 98/56
--- NOTE | 2019-06-17 15:37 | EKG ---
[facility] [place] [address] ELECTROCARDIOGRAM REPORT Name: ELAINE RAMIREZ Room #: DEP [facility]#: [id number] Admission: 06/16/19 Attend Phys: Discharge: 06/16/19 Date of : 59 Report #: [id number] THIS REPORT FOR: cc: Brent Will James D. DO Lundgren, Craig H. MD [facility] ~ THIS REPORT FOR: //name// [facility] ED Test Date: 2019-06-16 Test Time: 14:15:38 Pat Name: ELAINE RAMIREZ Department: Room: Gender: F Core Maker: ESHEETS : 1955 Requested By: Noel Guzman Order Number: [id number] MD: Randal Ding Measurements Intervals [place] Rate: 107 P: 56 MA: 145 QRS: 53 QRSD: 139 T: 9 QT: 324 QTc: 433 Interpretive Statements Sinus tachycardia Right bundle branch block Baseline wander in lead(s) V1 Compared to ECG 05/17/2019 03:24:40 Atrial premature complexes are no longer present Electronically Signed On 06-17-2019 15:36:16 CDT by Randal Ding [email or web address] <ELECTRONICALLY SIGNED> By: Randal Ding MD, [facility] 06/17/19 1536 1415 1415 Randal Ding MD, [facility] /EPI
== END 2019-06-16 16:07 ==
LOC: ER 13:30
PROVIDERS: Emergency Medicine
DX: I13.0 Hypertensive heart and chronic kidney disease with heart failure and stage 1 through stage 4 chronic kidney disease, or unspecified chronic kidney disease (principal); N18.3 Chronic kidney disease, stage 3 (moderate); I50.30 Unspecified diastolic (congestive) heart failure; R79.89 Other specified abnormal findings of blood chemistry; R91.8 Other nonspecific abnormal finding of lung field; I25.2 Old myocardial infarction; E78.5 Hyperlipidemia, unspecified; E03.9 Hypothyroidism, unspecified; E66.9 Obesity, unspecified; J44.9 Chronic obstructive pulmonary disease, unspecified; F17.210 Nicotine dependence, cigarettes, uncomplicated; Z79.899 Other long term (current) drug therapy; Z86.718 Personal history of other venous thrombosis and embolism; Z86.73 Personal history of transient ischemic attack (TIA), and cerebral infarction without residual deficits